=== PATIENT | female | born 1960 | race Caucasian/White ===

== ENCOUNTER 2017-02-17 08:02 | Emergency (ER) | payer OTHER ==
[~2017-02-17] VITALS: Ht 167.6 cm; Wt 75.0 kg
[~2017-02-17 08:02] MED LIST: ATEN-102 PO; ATOR10TA PO; BISA10R PR; CLON.1 PO; CLON.2 PO; DILA2TAB4 PO; IMOD2TAB PO; LACT20SO4 PO; LEXA10TA PO; LISI40TA PO; OXYC10TA8 PO; PERC10TA27 PO; PERI8.6T PO; RANI150C PO; REQU3TAB PO; ULTR50TA PO; WALKER STANDARD; XANA1TAB6 PO
[2017-02-17 08:04] VITALS: BP 142/86; PULSE 71; RESP 18; TEMP 98.1; O2SAT 97
--- NOTE | 2017-02-17 08:24 | PD ---
HPI Chief Complaint: Injury Time Seen by Provider: 08:23 Travel History International Travel<30 days: No Contact w/Intl Traveler<30days: No Traveled to known affect area: No History of Present Illness HPI 57-year-old female presents to the emergency Department with complaint of left ankle pain for the past 3 days. Denies injury or strain. Denies paresthesias, loss of sensation to the affected extremity. She says she cannot walk because it is too painful. Reports swelling to the ankle. Denies fever, chills, nausea , vomiting. Has not taken any medications or tried any treatments to alleviate her symptoms. Allergies to amoxicillin and clindamycin. No other modifying factors or associated signs and symptoms. PFSH Past Medical History Autoimmune Disease: No Anxiety: Yes Depression: Yes Cancer: No Cardiovascular Problems: Yes High Cholesterol: Yes Cerebrovascular Accident: Yes Diminished Hearing: No Endocrine: No Gastrointestinal Disorders: Yes Genitourinary: No Hypertension: Yes Immune Disorder: No Musculoskeletal: No Neurologic: Yes Reproductive: No Respiratory: No Menopausal: Yes : 3 Para: 1 Past Surgical History Abdominal Surgery: Yes Other Surgery: Yes (LEFT CAROTID, LEFT LEG) Social History Alcohol Use: No Tobacco Use: Yes (1 PPD) Substance Use: No Allergies-Medications (Allergen,Severity, Reaction): Coded Allergies: Amoxicillin (Verified Allergy, Unknown, 04/23/16) Clindamycin (Unverified Allergy, Unknown, 04/23/16) Reported Meds & Prescriptions Reported Meds & Active Scripts Active Ibuprofen 800 Mg Tab 800 Mg PO Q6HR PRN Dilaudid (Hydromorphone HCl) 2 Mg Tab 2 Mg PO Q6H Oxycodone (Oxycodone HCl) 10 Mg Tab 10 Mg PO Q6H PRN in addn to percocet for breakthrough pain Catapres (Clonidine HCl) 0.1 Mg Tab 0.1 Mg PO Q6H PRN Dulcolax 10 Mg Supp (Bisacodyl) 10 Mg Supp 10 Mg [place] DAILY PRN Walker Standard (Device) Device 1 Unit Reported Percocet 10-325 mg (Oxycodone-Acetaminophen 10-325 mg) 1 Tab 1 Tab PO Q4H Atenolol 50 Mg Tab 50 Mg PO Q8HR Zantac (Ranitidine HCl) 150 Mg Cap 150 Mg PO DAILY Ultram (Tramadol HCl) 50 Mg Tab 50 Mg PO Q8HR PRN Requip 3 mg (ROPINIROLE HYDROCHLORIDE 3 mg) 3 Mg Tab 3 Mg PO TID Loperamide Hcl (Loperamide HCl) 2 Mg Tab 2 Mg PO PRN GIVE AFTER EACH LOOSE STOOL: MAXIUMUM OF 8 CAPS/TABS PER DAY Lactulose 30 Ml Syrp 30 Ml PO DAILY PRN Xanax 1 mg (Alprazolam) Alprazolam 1 mg Tab 2 Mg PO Q6 Reyna-Colace 8.6-50 mg (Sennosides-Docusate Sodium) 1 Tab Tab 2 Tab PO DAILY PRN Prinivil 40 mg (Lisinopril) 40 Mg Tab 40 Mg PO DAILY Lexapro (Escitalopram Oxalate) 10 Mg Tab 10 Mg PO DAILY Catapres 0.2 mg (Clonidine HCl) 0.2 Mg Tab 1 Tab PO TID PRN Atorvastatin 10 mg (Atorvastatin Calcium) 10 Mg Tab 10 Mg PO DAILY Review of Systems Except as stated in HPI: all other systems reviewed are Neg Physical Exam Narrative GENERAL: Well-nourished, well-developed female patient, in no acute distress SKIN: Warm and dry. HEAD: Atraumatic. Normocephalic. EYES: Pupils equal and round. No scleral icterus. No injection or drainage. ENT: Mucosa pink and moist. Airway patent. NECK: Trachea midline. CARDIOVASCULAR: Regular rate. RESPIRATORY: No accessory muscle use. GASTROINTESTINAL: Flat. MUSCULOSKELETAL: Left ankle with tenderness on palpation; with nonpitting edema ; without erythema, ecchymosis; limited range of motion. Left lower extremity is supple and non-tense with 2+ pedal pulse and sensory intact. Right ankle appears mildly edematous and with similar appearance as the left; without tenderness on palpation and nonpitting edema. No signs of septic joint. No obvious deformities. No clubbing. No cyanosis. No edema. NEUROLOGICAL: Awake and alert. Oriented 3. No obvious cranial nerve deficits. Motor grossly within normal limits. Normal speech. PSYCHIATRIC: Appropriate mood and affect; insight and judgment normal. Data Data Last Documented VS Vital Signs Date Time Temp Pulse Resp B/P Pulse Ox O2 Delivery O2 Flow Rate FiO2 02/17/17 08:04 98.1 71 18 142/86 97 Room Air Orders Ankle, Complete ([id number]) (02/17/17 08:22) Crutches (02/17/17 09:29) Splint Or Brace Apply/Monitor (02/17/17 09:29) Brace Ankle Stirrup (02/17/17 ) [facility] Medical Decision Making Medical Screen Exam Complete: Yes Emergency Medical Condition: Yes Medical Record Reviewed: Yes Differential Diagnosis Ankle sprain, fracture, arthritis, nonspecific ankle pain Narrative Course 57-year-old female with left ankle pain and swelling. Denies injury. Left lower extremity supple and nontender to 2+ pedal pulses and sensory intact. There are no signs of septic joint. The right ankle appears similar to left ankle appearance. Left ankle x-ray ordered. Ibuprofen administered in the ER. 1015: Left ankle x-ray with no acute findings. Crutches and ankle stirrup splint provider for support. Ibuprofen prescribed for home. Patient verbalizes understanding and agreement with treatment plan. Patient is medically cleared and stable for discharge. Discussed reasons to return to the emergency department. Instructed patient to follow up with primary care provider. Patient agrees with treatment plan. The patients vital signs are stable and the patient is stable for outpatient follow-up and treatment. Patient discharged home, stable and in no acute distress. Diagnosis Primary Impression: Left ankle pain Qualified Code: M25.572 - Left ankle pain, unspecified chronicity Referrals: Primary Care Physician Patient Instructions: Crutch Instructions (ED), General Instructions Additional Instructions: Tylenol or ibuprofen as directed and as needed for pain and inflammation Rest, ice, compress, and elevate extremity to decrease pain and inflammation Ankle Brace for support Crutches for support Avoid aggravating activity; increase activity as tolerated Follow-up with primary care provider Return to the emergency department immediately with worsening symptoms Med/Other Pt SpecificInfo: Prescription(s) given Scripts Ibuprofen 800 Mg [id number] Mg PO Q6HR PRN (PAIN) #30 TAB Ref 0 Prov:Yenni Hancock 02/17/17 Disposition: 01 DISCHARGE HOME Condition: Stable Yenni Hancock Feb 17, 2017 08:24
--- NOTE | 2017-02-17 09:10 | RADRPT ---
EXAM DATE/TIME: 02/17/2017 08:40 [facility] COMPARISON: No previous studies available for comparison. INDICATIONS : Left ankle pain and swelling. No known injury. MEDICAL HISTORY : Cardiovascular disease. Hypertension SURGICAL HISTORY : None. Left hip arthroplasty. Right hip fracture repair. ENCOUNTER: Initial ACUITY: 3 days PAIN SCORE: 5/10 LOCATION: Left lateral ankle FINDINGS: Three view exam was performed of the left ankle. The bony structures are in normal alignment. No ev idence of fracture, dislocation, or soft tissue swelling. The ankle mortise is intact. No radiopaqu e foreign bodies are seen. Bony mineralization is normal. CONCLUSION: Unremarkable examination of the left ankle. Frankie Steinberg MD on February 17, 2017 at 9:08 Board Certified Radiologist. This report was verified electronically.
[2017-02-17] MEDS ORDERED: IBUP800T23 PO (09:46)
== END 2017-02-17 09:54 | disposition home or self-care (01) ==
LOC: NEPB 08:02
DX: M25.572 Pain in left ankle and joints of left foot (principal); I10 Essential (primary) hypertension; F17.210 Nicotine dependence, cigarettes, uncomplicated
CPT/HCPCS: 73610; 99283; E0113; L1906

== ENCOUNTER 2017-02-19 10:23 | Emergency (ER) | payer OTHER ==
[~2017-02-19] VITALS: Ht 177.8 cm; Wt 84.0 kg
[~2017-02-19 10:23] MED LIST changes: +IBUP800T23 PO
[2017-02-19 10:28] VITALS: BP 180/87; PULSE 81; RESP 15; TEMP 98.2; O2SAT 98
--- NOTE | 2017-02-19 10:56 | PD ---
HPI Chief Complaint: Pain: Acute or Chronic Time Seen by Provider: 10:44 Travel History International Travel<30 days: No Contact w/Intl Traveler<30days: No Traveled to known affect area: No History of Present Illness HPI 57-year-old female presents to the emergency department with continued pain to her left ankle and worsening of swelling to her foot and ankle. I saw this patient on February 17 for the same complaint. Denies injury. She returns with worsening of symptoms. She denies paresthesias, loss of sensation to the affected extremity. Denies fever, chills, nausea, vomiting. Says the swelling looks like it's going up her leg. Denies calf pain. Denies history of DVT/PE. Denies anticoagulants. Denies recent surgery, trauma, hospitalization, travel. Denies estrogen use. She has not been using the crutches or ankle splint she was given for support. She says ibuprofen has not helped with her pain and she is requesting something more. She has no other medical complaints. Allergies to amoxicillin and clindamycin. No other modifying factors or associated signs and symptoms. PFSH Past Medical History Autoimmune Disease: No Anxiety: Yes Depression: Yes Cancer: No Cardiovascular Problems: Yes High Cholesterol: Yes Cerebrovascular Accident: Yes Diminished Hearing: No Endocrine: No Gastrointestinal Disorders: Yes Genitourinary: No Hypertension: Yes Immune Disorder: No Musculoskeletal: No Neurologic: Yes Reproductive: No Respiratory: No Menopausal: Yes : 3 Para: 1 Past Surgical History Abdominal Surgery: Yes Other Surgery: Yes (LEFT CAROTID, LEFT LEG) Social History Alcohol Use: No Tobacco Use: Yes (1 PPD) Substance Use: No Allergies-Medications (Allergen,Severity, Reaction): Coded Allergies: Amoxicillin (Verified Allergy, Unknown, 04/23/16) Clindamycin (Unverified Allergy, Unknown, 04/23/16) Reported Meds & Prescriptions Reported Meds & Active Scripts Active Ibuprofen 800 Mg Tab 800 Mg PO Q6HR PRN Reported Gabapentin 100 Mg Cap 100 Mg PO TID Tramadol (Tramadol HCl) 50 Mg Tab 50 Mg PO TID PRN Ropinirole 3 Mg Tab 3 Mg PO TID Lisinopril 40 Mg Tab 40 Mg PO DAILY Hydrocodone-Acetaminophen 5-300 Mg Tab 1 Tab PO Q4H PRN Escitalopram (Escitalopram Oxalate) 10 Mg Tab 10 Mg PO DAILY Flexeril (Cyclobenzaprine HCl) 10 Mg Tab 10 Mg PO TID Clonidine (Clonidine HCl) 0.1 Mg Tab 0.1 Mg PO BID Atorvastatin (Atorvastatin Calcium) 10 Mg Tab 10 Mg PO HS Atenolol 100 Mg Tab 75 Mg PO TID Alprazolam 2 Mg Tab 2 Mg PO Q6H PRN Review of Systems Except as stated in HPI: all other systems reviewed are Neg Physical Exam Narrative GENERAL: Well-nourished, well-developed female patient, in no acute distress; afebrile, nontoxic-appearing SKIN: Warm and dry. HEAD: Atraumatic. Normocephalic. EYES: Pupils equal and round. No scleral icterus. No injection or drainage. ENT: Mucosa pink and moist. Airway patent. NECK: Trachea midline. CARDIOVASCULAR: Regular rate. RESPIRATORY: No accessory muscle use. GASTROINTESTINAL: Rounded. MUSCULOSKELETAL: Left lower extremity supple and non-tense with 2+ pedal pulse and sensory intact without erythema. Left lower leg appears slightly larger than the right lower leg. Left ankle and foot with edema; there is an area of erythema to the medial aspect of the ankle that is warm to touch and may be consistent with cellulitis. The right foot and ankle are also edematous with similar appearance, but less than the left. Left ankle and foot edema have worsened since I saw the patient 2 days ago, and the lower leg appears slightly edematous now too. No reproducible tenderness on palpation to the posterior upper calf. No obvious deformities. No clubbing. No cyanosis. NEUROLOGICAL: Awake and alert. Oriented 3. No obvious cranial nerve deficits. Motor grossly within normal limits. Normal speech. PSYCHIATRIC: Appropriate mood and affect; insight and judgment normal. Data Data Last Documented VS Vital Signs Date Time Temp Pulse Resp B/P Pulse Ox O2 Delivery O2 Flow Rate FiO2 02/19/17 10:28 98.2 81 15 180/87 98 Orders Us Leg Venous Doppler (02/19/17 ) [facility] Medical Decision Making Medical Screen Exam Complete: Yes Emergency Medical Condition: Yes Medical Record Reviewed: Yes Differential Diagnosis Dependent edema, cellulitis, DVT, superficial thrombosis, gout Narrative Course This is a 57-year-old female that I saw 2 days ago on February 17 for the same complaint of left ankle pain and swelling. Denies injury. An x-ray on February 17 of the left ankle was negative for fracture. The left ankle and foot are more edematous and have worsened since I last saw the patient 2 days ago in the lower leg appears slightly edematous now too. There is an area to the medial aspect of the ankle that is erythematous and warm to touch, that may be consistent with a cellulitis. I will obtain a left leg venous Doppler ultrasound to rule out DVT and if that is negative I'll treat the patient for cellulitis. Left leg venous Doppler ultrasound ordered. 1140: Left leg venous Doppler ultrasound concludes an unremarkable examination. I will prescribe antibiotics for possible cellulitis. I will prescribe a course of steroids for possible gout. Keflex, Bactrim, Deltasone prescribed for home. Instructed patient to continue to use crutches and ankle splint as needed for support. Patient verbalizes understanding and agreement with treatment plan. Patient is medically cleared and stable for discharge. Discussed reasons to return to the emergency department. Instructed patient to follow up with primary care provider. Patient agrees with treatment plan. The patients vital signs are stable and the patient is stable for outpatient follow- up and treatment. Patient discharged home, stable and in no acute distress. Diagnosis Primary Impression: Edema of left ankle Additional Impressions: Edema of left foot Left ankle pain Qualified Code: M25.572 - Left ankle pain, unspecified chronicity Referrals: Primary Care Physician Patient Instructions: Cellulitis (ED), General Instructions, Gout (ED) Additional Instructions: Tylenol or ibuprofen as instructed and as needed for pain and inflammation Rest, ice, compress, and elevate extremity to decrease pain and inflammation Justin bandage and ankle Brace for support Crutches for support Avoid aggravating activity; increase activity as tolerated Follow-up with primary care provider Return to the emergency department immediately with worsening symptoms Med/Other Pt SpecificInfo: Prescription(s) given, No Change to Meds, No Meds Exist/No RX given Scripts Prednisone (Deltasone)20 Mg Tab40 Mg PO DAILY 5 Days Ref 0 Prov:Yenni Hancock [employer]PECT[employer]IE 02/19/17 Sulfamethoxazole-Trimethoprim (Bactrim DS)800-160 Mg Tab1 Tab PO BID 10 Days Ref 0 Prov:Yenni Hancock [employer] 02/19/17 Cephalexin (Keflex)500 Mg [id number] Mg PO Q6H 10 Days Ref 0 Prov:Yenni Hancock [employer] 3/24/17 Disposition: 01 DISCHARGE HOME Condition: Stable Rassi,Yenni K [employer] Feb 19, 2017 10:56
[2017-02-19] MEDS ORDERED: ATEN100T PO (11:10)
[2017-02-19] MEDS ORDERED: GABA100C4 PO (11:10)
[2017-02-19] MEDS ORDERED: ATOR10TA15 PO (11:10)
[2017-02-19] MEDS ORDERED: CYCL1TAB29 PO (11:10)
[2017-02-19] MEDS ORDERED: TRAM50TA PO (11:10)
[2017-02-19] MEDS ORDERED: CLON0.1T PO (11:10)
[2017-02-19] MEDS ORDERED: HYDR-4107 PO (11:10)
[2017-02-19] MEDS ORDERED: ALPR2TAB3 PO (11:10)
[2017-02-19] MEDS ORDERED: ESCI10TA PO (11:10)
[2017-02-19] MEDS ORDERED: LISI40TA PO (11:10)
[2017-02-19] MEDS ORDERED: ROPI3TAB PO (11:10)
--- NOTE | 2017-02-19 11:31 | RADRPT ---
EXAM DATE/TIME: 02/19/2017 11:00 [facility] COMPARISON: No previous studies available for comparison. INDICATIONS : Left leg pain and swelling. MEDICAL HISTORY : Hypercholesterolemia. Hypertension. Stroke. SURGICAL HISTORY : Carotid endarterectomy. Left leg surgery. ENCOUNTER: Initial ACUITY: 1 day PAIN SCORE: 4/10 LOCATION: Left leg. TECHNIQUE: Venous ultrasound of the leg was performed from the inguinal ligament to the proximal calf. Real-sharon e, color Doppler and spectral tracing, compression and augmentation techniques were used. FINDINGS: There is normal compressibility of the deep venous system from the inguinal region to the proximal ca lf. No echogenic clot is seen in the lumen of the common femoral, femoral, popliteal, and posterior tibial veins. There is a normal response of the venous system to proximal and distal augmentation an d respiration. CONCLUSION: Normal examination. Frankie Steinberg MD on February 19, 2017 at 11:26 Board Certified Radiologist. This report was verified electronically.
[2017-02-19] MEDS ORDERED: CEPH-460 PO (11:44)
[2017-02-19] MEDS ORDERED: PRED-503 PO (11:44)
[2017-02-19] MEDS ORDERED: BACT800T5 PO (11:44)
== END 2017-02-19 13:15 | disposition home or self-care (01) ==
LOC: NETRI 10:23 → NEDAMB 13:15
DX: R60.0 Localized edema (principal); M25.572 Pain in left ankle and joints of left foot; I10 Essential (primary) hypertension; E78.00 Pure hypercholesterolemia, unspecified; F17.200 Nicotine dependence, unspecified, uncomplicated; Z86.59 Personal history of other mental and behavioral disorders; Z86.79 Personal history of other diseases of the circulatory system; Z87.19 Personal history of other diseases of the digestive system; Z86.69 Personal history of other diseases of the nervous system and sense organs
CPT/HCPCS: 93971

== ENCOUNTER 2017-02-26 13:10 | Inpatient (IN) | payer OTHER ==
[~2017-02-26] VITALS: Ht 175.3 cm; Wt 84.0 kg
[~2017-02-26 13:10] MED LIST changes: +ALPR2TAB3 PO; -ATEN-102 PO; +ATEN100T PO; -ATOR10TA PO; +ATOR10TA15 PO; +BACT800T5 PO; -BISA10R PR; +CEPH-460 PO; -CLON.1 PO; -CLON.2 PO; +CLON0.1T PO; +CYCL1TAB29 PO; -DILA2TAB4 PO; +ESCI10TA PO; +GABA100C4 PO; +HYDR-4107 PO; -IMOD2TAB PO; -LACT20SO4 PO; -LEXA10TA PO; -OXYC10TA8 PO; -PERC10TA27 PO; -PERI8.6T PO; +PRED-503 PO; -RANI150C PO; -REQU3TAB PO; +ROPI3TAB PO; +TRAM50TA PO; -ULTR50TA PO; -WALKER STANDARD; -XANA1TAB6 PO
[2017-02-26 13:12] VITALS: BP 110/67; PULSE 68; RESP 20; TEMP 97.9; O2SAT 91
--- NOTE | 2017-02-26 15:58 | RADRPT ---
EXAM DATE/TIME: 02/26/2017 15:49 [facility] COMPARISON: No previous studies available for comparison. INDICATIONS : Inflammation to dorsal aspect of left foot. Complains of pain in foot. Patient fell 3 days ago. MEDICAL HISTORY : None. SURGICAL HISTORY : None. ENCOUNTER: Initial ACUITY: 3 days PAIN SCORE: 8/10 LOCATION: Left Foot FINDINGS: Three view examination of the left foot demonstrates significant soft tissue swelling along the dorsu m of the foot. There are fractures through the distal tibial and fibular metaphyses. Questionable herminia ency through the lateral base of the distal phalanx of the first ray. Intrinsic bones of the foot are otherwise intact CONCLUSION: 1. Fractures through the distal tibial and fibular metaphyses. 2. Possible linear, nondisplaced fracture through the lateral base of the distal phalanx of the first ray Gamal Artis MD on February 26, 2017 at 15:50 Board Certified Radiologist. This report was verified electronically.
--- NOTE | 2017-02-26 16:24 | PD ---
HPI Chief Complaint: Pain: Acute or Chronic Time Seen by Provider: 16:00 Travel History International Travel<30 days: No Contact w/Intl Traveler<30days: No Traveled to known affect area: No History of Present Illness HPI Patient is a 57 year old female presented to the emergency room evaluation of left foot swelling and pain. Patient states it so sore she cannot walk. She saw her primary care provider on Wednesday who prescribed antibiotics. Patient has been taking Bactrim, Keflex and Lasix. Patient states the pain continues to get worse despite this treatment. Patient states that she fell a few days ago. She denies any other complaints at this time. Patient has a history of CVA, she currently resides at [facility]. [facility] Past Medical History Autoimmune Disease: No Anxiety: Yes Depression: Yes Cancer: No Cardiovascular Problems: Yes High Cholesterol: Yes Cerebrovascular Accident: Yes Diminished Hearing: No Endocrine: No Gastrointestinal Disorders: Yes Genitourinary: No Hypertension: Yes Immune Disorder: No Musculoskeletal: No Neurologic: Yes Reproductive: No Respiratory: No ?: Not Menopausal: Yes : 3 Para: 1 Past Surgical History Abdominal Surgery: Yes Other Surgery: Yes (LEFT CAROTID, LEFT LEG) Social History Alcohol Use: No Tobacco Use: Yes (1 PPD) Substance Use: No Allergies-Medications (Allergen,Severity, Reaction): Coded Allergies: Amoxicillin (Verified Allergy, Unknown, 04/23/16) Clindamycin (Unverified Allergy, Unknown, 04/23/16) Reported Meds & Prescriptions Reported Meds & Active Scripts Active Deltasone (Prednisone) 20 Mg Tab 40 Mg PO DAILY 5 Days Bactrim DS (Sulfamethoxazole-Trimethoprim) 800-160 Mg Tab 1 Tab PO BID 10 Days Keflex (Cephalexin) 500 Mg Cap 500 Mg PO Q6H 10 Days Ibuprofen 800 Mg Tab 800 Mg PO Q6HR PRN Reported Gabapentin 100 Mg Cap 100 Mg PO TID Tramadol (Tramadol HCl) 50 Mg Tab 50 Mg PO TID PRN Ropinirole 3 Mg Tab 3 Mg PO TID Lisinopril 40 Mg Tab 40 Mg PO DAILY Hydrocodone-Acetaminophen 5-300 Mg Tab 1 Tab PO Q4H PRN Escitalopram (Escitalopram Oxalate) 10 Mg Tab 10 Mg PO DAILY Flexeril (Cyclobenzaprine HCl) 10 Mg Tab 10 Mg PO TID Clonidine (Clonidine HCl) 0.1 Mg Tab 0.1 Mg PO BID Atorvastatin (Atorvastatin Calcium) 10 Mg Tab 10 Mg PO HS Atenolol 100 Mg Tab 75 Mg PO TID Alprazolam 2 Mg Tab 2 Mg PO Q6H PRN Review of Systems Except as stated in HPI: all other systems reviewed are Neg Musculoskeletal: Positive: Myalgias, Arthralgias, Limited ROM, Edema, Pain Skin: Positive Change in Pigmentation Physical Exam Narrative GENERAL: Well-nourished, well-developed patient. SKIN: Focused skin assessment warm/dry. Moderate erythema noted to the left ankle and foot on the dorsal aspect. HEAD: Normocephalic. EYES: No scleral icterus. No injection or drainage. NECK: Supple, trachea midline. No JVD or lymphadenopathy. CARDIOVASCULAR: Regular rate and rhythm without murmurs, gallops, or rubs. RESPIRATORY: Breath sounds equal bilaterally. No accessory muscle use. GASTROINTESTINAL: Abdomen soft, non-tender, nondistended. MUSCULOSKELETAL: No cyanosis, 2+ pitting edema to the left foot on the dorsal aspect. Edema noted to the left ankle diffusely. Tender to palpation. Decreased range of motion. Positive pedal pulses, brisk less than 3 second capillary refill. BACK: Nontender without obvious deformity. No CVA tenderness. Data Data Last Documented VS Vital Signs Date Time Temp Pulse Resp B/P Pulse Ox O2 Delivery O2 Flow Rate FiO2 02/26/17 13:12 97.9 68 20 110/67 91 Room Air Orders Foot, Complete ([id number]) (02/26/17 ) Ankle, Complete ([id number]) (02/26/17 ) Complete Blood Count With Diff (02/26/17 17:12) Comprehensive Metabolic Panel (02/26/17 17:12) Act Partial Throm Time (Ptt) (02/26/17 17:12) Prothrombin Time / Inr (Pt) (02/26/17 17:12) Iv Access Insert/Monitor (02/26/17 17:12) Ct Ankle W/O Contrast (02/26/17 ) Diet Npo (02/27/17 Breakfast) Diet Heart Healthy (02/26/17 Dinner) Chest, Pa & Lat (02/26/17 ) Electrocardiogram (02/26/17 ) Vancomycin Inj (Vancomycin Inj) (02/26/17 17:30) Cefazolin Inj (Ancef Inj) (02/26/17 17:30) Admit Order (Ed Use Only) (02/26/17 17:31) Consult Orthopedic (02/26/17 ) [facility] Medical Decision Making Medical Screen Exam Complete: Yes Emergency Medical Condition: Yes Medical Record Reviewed: Yes Interpretation(s) Last Impressions Foot X-Ray 02/26/17 0000 Signed Impressions: Service Date/Time: Sunday, February 26, 2017 15:49 - CONCLUSION: 1. Fractures through the distal tibial and fibular metaphyses. 2. Possible linear, nondisplaced fracture through the lateral base of the distal phalanx of the first ray Gamal Artis MD Vital Signs Date Time Temp Pulse Resp B/P Pulse Ox O2 Delivery O2 Flow Rate FiO2 02/26/17 13:12 97.9 68 20 110/67 91 Room Air Differential Diagnosis Cellulitis versus fracture versus strain versus sprain versus other Narrative Course Patient is a 57 year old female presenting to emergency for evaluation of left foot swelling and ankle pain. Patient has been unable to ambulate since a fall several days ago. Her primary doctor has been treating her with antibiotics for a suspected cellulitis. Patient's vital signs are stable, imaging ordered and pending. X-ray of the left foot shows a fracture of the distal tibial and fibular metaphysis. It also shows a possible linear nondisplaced fracture at the lateral base of the distal phalanx on the first toe. Paged orthopedic surgeon for recommendations. Dedicated ankle x-rays ordered and pending. Dr. Ulloa returned the page, after ankle at the x-rays were reviewed by him he recommended patient be nothing by mouth after midnight, CT scan of the ankle, cold machine on the left ankle and to be treated for possible cellulitis as well. Patient will be admitted to medicine. She'll be kept nothing by mouth after midnight. Hospitalist page. Orders placed for labs, chest x-ray, EKG for preop testing. Dr. Lam accepted admission patient's been tolerating Keflex that was prescribed by her primary. She will be given Ancef 1 g 1 dose now. Patient transferred to alpha pod from fast track. Updated Dr. Cr who is the provider in that pod at this time. Additionally patient was informed of results of testing. She is agreeable to plan of care. Diagnosis Primary Impression: Fracture of distal end of left tibia Qualified Code: S82.302A - Closed fracture of distal end of left tibia, unspecified fracture morphology, initial encounter Additional Impressions: Fracture of distal fibula Qualified Code: S82.832A - Closed fracture of distal end of left fibula, unspecified fracture morphology, initial encounter Cellulitis Qualified Code: L03.116 - Cellulitis of left lower extremity Admitting Information Admitting Physician Requests: Admit Condition: Stable Mamta Ibanez Feb 26, 2017 16:24
--- NOTE | 2017-02-26 17:16 | RADRPT ---
EXAM DATE/TIME: 02/26/2017 15:49 [facility] COMPARISON: ANKLE LEFT COMPLETE ([id number]), February 17, 2017, 8:40. INDICATIONS : Evaluate for fracture. Patient fell three days ago and complains of left ankle pain . MEDICAL HISTORY : None. SURGICAL HISTORY : None. ENCOUNTER: Initial ACUITY: 3 days PAIN SCORE: 8/10 LOCATION: Left ankle FINDINGS/CONCLUSION: There is fracture of the distal tibia and fibula horizontal to the tibial pl afond angulation. This was not present on the previous study of 02/17/17. Yoni Ferreira MD FACR on February 26, 2017 at 17:12 Board Certified Radiologist. This report was verified electronically.
[2017-02-26] MEDS ORDERED: VANCOMYCIN INJ 1,000 MG in SODIUM CHLOR 0.9% 250 ML INJ 250 ML IV ONE (17:30)
--- NOTE | 2017-02-26 18:01 | RADRPT ---
EXAM DATE/TIME: 02/26/2017 17:39 [facility] COMPARISON: No previous studies available for comparison. INDICATIONS : Left ankle pain and swelling. RADIATION DOSE: 7.29 CTDIvol (mGy) MEDICAL HISTORY : None SURGICAL HISTORY : None. ENCOUNTER: Initial ACUITY: 1 day PAIN SCALE: 9/10 LOCATION: Left ankle TECHNIQUE: Volumetric scanning of the ankle was performed. Using automated exposure control and adjustment of the mA and/or kV according to patient size, radiation dose was kept as low as reasonabl y achievable to obtain optimal diagnostic quality images. FINDINGS: There is generalized soft-tissue swelling about the ankle. There is a small joint effu peyton present. This is associated with a fracture of the distal tibia and fibula. The talus and calcaneus are intact. CONCLUSION: Fracture of the distal tibia and fibula as described above. Yoni Ferreira MD FACR on February 26, 2017 at 17:56 Board Certified Radiologist. This report was verified electronically.
[2017-02-26 18:15] VITALS: BP 145/78; PULSE 55; RESP 18; O2SAT 100
--- NOTE | 2017-02-26 18:24 | RADRPT ---
EXAM DATE/TIME: 02/26/2017 17:51 [facility] COMPARISON: SHOULDER RIGHT LTD ([id number]), April 03, 2016, 13:13. INDICATIONS : Evaluate for pneumonia, pneumothorax and communicable disease Pre op for ankle surgery. MEDICAL HISTORY : Fractures through the distal tibial and fibular metaphyses. SURGICAL HISTORY : None. ENCOUNTER: Initial ACUITY: 1 day PAIN SCORE: 0/10 LOCATION: Bilateral chest FINDINGS: The heart is top normal in size. The pulmonary vascular pattern is normal. The lungs are clear. Deg enerative changes are noted involving the shoulders bilaterally (right worse than left). Scoliosis a nd degenerative changes of the thoracolumbar spine are noted. Multiple mild compression deformities are noted throughout the thoracic and upper lumbar spine. CONCLUSION: 1. No acute cardiopulmonary disease. 2. Degenerative changes, scoliosis and multilevel compression deformities involving the thoracic and upper lumbar spine. 3. Degenerative changes involving the shoulders bilaterally (right worse than left). Donta Raya MD on February 26, 2017 at 18:18 Board Certified Radiologist. This report was verified electronically.
[2017-02-26 18:34] LABS: AUTOMATED NEUTROPHIL # 7.2 TH/MM3 (1.8-7.7); BASOPHIL % 0.3 % (0.0-2.0); EOSINOPHIL # 0.2 TH/MM3 (0-0.4); EOSINOPHIL % 1.9 % (0.0-4.0); HEMATOCRIT 46.4 % (35.0-46.0); HEMO FLAGS DIFF FINAL; LYMPH % 23.1 % (9.0-44.0); LYMPHOCYTE # 2.4 TH/MM3 (1.0-4.8); MEAN CELL VOLUME 88.2 FL (80.0-100.0); MEAN CORPUSCULAR HEMOGLOBIN 29.9 PG (27.0-34.0); MEAN CORPUSCULAR HGB CONC 33.9 % (32.0-36.0); MONO % 4.4 % (0.0-8.0); NEUT % 70.3 % (16.0-70.0); PLATELET COUNT 281 TH/MM3 (150-450); RED BLOOD COUNT 5.26 MIL/MM3 (4.00-5.30); RED CELL DISTRIBUTION WIDTH 12.4 % (11.6-17.2); WHITE BLOOD COUNT 10.2 TH/MM3 (4.0-11.0)
[2017-02-26] MEDS: SODIUM CHLOR 0.9% 1000 ML INJ 1,000 ML IV SCH (18:38)
[2017-02-26 18:45] VITALS: BP 146/88; PULSE 54; RESP 23; O2SAT 98
[2017-02-26 18:46] LABS: APTT (PATIENT) 29.2 SEC (24.3-30.1); PROTHROMBIN TIME - PATIENT 10.6 SEC (9.8-11.6)
[2017-02-26 19:20] LABS: ALKALINE PHOSPHATASE 120 U/L (45-117); ALT (GPT) 14 U/L (10-53); ANION GAP 9 MEQ/L (5-15); AST (GOT) 13 U/L (15-37); BICARBONATE 25.1 MEQ/L (21.0-32.0); BLOOD UREA NITROGEN 22 MG/DL (7-18); CHLORIDE 90 MEQ/L (98-107); GLOMERULAR FILTRATION RATE 39 ML/MIN (>89); POTASSIUM 4.2 MEQ/L (3.5-5.1); TOTAL BILIRUBIN ADULT 0.4 MG/DL (0.2-1.0)
[2017-02-26 19:30] VITALS: BP 155/96; PULSE 56; RESP 19; O2SAT 96
[2017-02-26 19:30] LABS: SODIUM (NA) 124 MEQ/L (136-145)
[2017-02-26 21:32] VITALS: PULSE 55
[2017-02-26] MEDS ORDERED: MORPHINE SULFATE 4 MG/ML INJ IV PRN (22:45)
[2017-02-26] MEDS ORDERED: ACETAMINOPHEN 325 MG TAB PO PRN (22:45)
[2017-02-26] MEDS: ALPRAZolam 1 MG TAB PO PRN (23:31)
[2017-02-26] MEDS: ATORVASTATIN 10 MG TAB PO SCH (23:32)
[2017-02-26] MEDS: ACETAMINOPHEN/HYDROcodone 325 MG/5 MG TAB PO PRN (23:32)
[2017-02-27] VITALS (9 sets, daily range): BP systolic 107–163; BP diastolic 68–92; PULSE 53–94; RESP 17–18; TEMP 95.7–97.5; O2SAT 93–100
[2017-02-27] MEDS ORDERED: ceFAZolin 2 GM PREMIX 50 ML IV SCH
[2017-02-27] MEDS ORDERED: CEPHALEXIN MONOHYDRATE 500 MG CAP PO ONE (00:45)
[2017-02-27] MEDS ORDERED: INSULIN HUMAN REGULAR 1,000 UNITS/10 ML VIAL SQ PRN (01:15)
[2017-02-27] MEDS ORDERED: CHLORHEXIDINE GLUCONATE 2 % 1 PACK (2 CLOTHS) TOPICAL PRN (01:15)
[2017-02-27] MEDS ORDERED: SODIUM CHLORID 0.9% 500 ML IV PRN (01:15)
[2017-02-27] MEDS: LACTATED RINGER'S 1000 ML INJ 1,000 ML IV SCH ×2 (01:15→22:06)
[2017-02-27] MEDS ORDERED: POVIDONE IODINE 5% (ANTISEPSIS KIT) 4 APPLICATIONS EACH NARE PRN (01:15)
[2017-02-27] MEDS: ACETAMINOPHEN/HYDROcodone 325 MG/5 MG TAB PO PRN ×4 (05:15→23:11)
[2017-02-27] MEDS: CYCLOBENZAPRINE HCL 10 MG TAB PO SCH ×3 (08:39→16:45)
[2017-02-27] MEDS: ATENOLOL 100 MG TAB PO SCH ×3 (08:40→16:44)
[2017-02-27] MEDS: cloNIDine HCL 0.1 MG TAB PO SCH ×2 (08:40→20:52)
[2017-02-27] MEDS: GABAPENTIN 100 MG CAP PO SCH ×3 (08:40→16:44)
[2017-02-27] MEDS ORDERED: GENTAMICIN SULFATE 80 MG/2 ML VIAL ONE (09:22)
[2017-02-27] MEDS ORDERED: ACETAMINOPHEN 1000 MG/100 ML VIAL IV ONE (09:31)
[2017-02-27] MEDS ORDERED: ceFAZolin INJ 1,000 MG VIAL ONE (09:45)
[2017-02-27] MEDS ORDERED: VANCOMYCIN HCL 1000 MG VIAL ONE ×2 (09:45→10:00)
--- NOTE | 2017-02-27 11:17 | PD.OP ---
cc: Jean-Claude Prado MD Operative Report Date of Surgery: Feb 27, 2017 Preoperative Diagnosis: Left distal tibial pilon fracture, left distal fibula fracture. Postoperative Diagnosis: Same Procedure: Left lower extremity open reduction and internal fixation of distal tibial pilon fracture with close reduction of distal fibula fracture Anesthesia: Gen. Surgeon: Jean-Claude Prado Import Clerk(s): REECE Weldon The surgical procedure was assisted by my Advanced Registered Nurse Practitioner. My LATIN DANCER presence was necessary throughout this case for the manipulation and positioning of the surgical extremity. My LATIN DANCER was assisting me throughout the duration of this procedure. The skill set of an Advance Registered Nurse Practitioner was medically necessary to complete this procedure. During the surgical case, the surgical nurse was working at the back table and the Advance Registered Nurse Practitioner was directly assisting me. Operation and Findings: Tourniquet time: 16 minutes at 250 mmHg pressure. Estimated blood loss: 30 cc. The patient was given a dose of Ancef and was found to have no specific reaction from the anesthesiologist. Additionally the patient was given intravenous vancomycin. The patient was brought back to the operative theater. Gen. anesthesia was administered. We removed the splint and inspected the skin. Overall there was mild to moderate swelling with no wounds. I did not appreciate any specific sign of cellulitis. Therefore we decided to move forward with the ORIF. The left lower extremity was prepped and draped in the usual sterile fashion. We made standard medial incision and dissected down to the fracture site after reflecting the periosteum. We decided to raise the tourniquet at this point. The fracture was comminuted and angulated. We anatomically reduced the distal tibia which at the same time then anatomically related to reduced the distal fibula. We applied a Synthes precontoured medial distal tibial plate. We did need to contour the plate further using bending irons to achieve anatomic position. We secured the plate using a nonlocking screw on the metaphysis. We then further secured the plate using multiple locking screws both distal and proximal. There was no intra-articular penetration noted. The fracture remained anatomic on the AP, lateral, and mortise views. We decided to proceed with just a close reduction of the distal fibula since it was now anatomic. We released the tourniquet and irrigated. We closed as much very ostium as possible with 0 Vicryl. We then closed skin with 2-0 Vicryl followed by 3-0 nylon. The leg was dressed and placed in multiple splints. Postoperative plan is nonweightbearing for approximately 8-12 weeks depending on healing. We may be able to start fairly early range of motion depending on patient compliance. Postoperative plan also includes routine antibiotics, and DVT prophylaxis with Lovenox followed by aspirin. Jean-Claude Prado MD Feb 27, 2017 11:17
[2017-02-27] MEDS ORDERED: ASPI325T PO (11:21)
[2017-02-27] MEDS ORDERED: ENOX40P SQ (11:21)
[2017-02-27] MEDS ORDERED: NORC5TAB PO (11:21)
[2017-02-27] MEDS ORDERED: NALOXONE HCL 0.4 MG/ML AMP IV PRN (11:30)
[2017-02-27] MEDS ORDERED: ONDANSETRON HCL 4 MG/2 ML VIAL IVP PRN (11:30)
[2017-02-27] MEDS ORDERED: MAGNESIUM HYDROXIDE SUSP 30 ML CUP PO PRN (11:30)
[2017-02-27] MEDS ORDERED: MISCELLANEOUS NURSING INFORMATION XX PRN (11:30)
[2017-02-27] MEDS ORDERED: MISCELLANEOUS PHARMACY INFORMATION XX ONE (11:30)
[2017-02-27] MEDS ORDERED: Post-op Orders (for Pharmacy) MISC XX ONE (11:30)
[2017-02-27] MEDS ORDERED: fentaNYL CITRATE 250 MCG/5 ML AMP ONE (11:58)
[2017-02-27] MEDS ORDERED: LACTATED RINGER'S 1000 ML INJ 1,000 ML IV ONE (12:00)
[2017-02-27] MEDS ORDERED: PROPOFOL 200 MG/20 ML AMP IV ONE (12:00)
[2017-02-27] MEDS ORDERED: ONDANSETRON HCL 4 MG/2 ML VIAL IV PUSH ONE (12:00)
[2017-02-27] MEDS: DEXT 5%-NACL 0.45% 1000 ML INJ 1,000 ML IV SCH ×2 (12:10→20:53)
[2017-02-27] MEDS ORDERED: *morphine SULFATE 8 MG/ML PERIprocedure ONLY ONE ×3 (12:11→12:25)
--- NOTE | 2017-02-27 12:24 | RADRPT ---
EXAM DATE/TIME: 02/27/2017 10:56 [facility] COMPARISON: ANKLE LEFT COMPLETE ([id number]), February 26, 2017, 15:49. INDICATIONS : Open reduction internal fixation left ankle. MEDICAL HISTORY : None. SURGICAL HISTORY : None. ENCOUNTER: Subsequent ACUITY: 2 days PAIN SCORE: Non-responsive. LOCATION: Left lateral FINDINGS: Plate with screws is seen bridging the fracture of the distal tibia. Alignment is anatomic. CONCLUSION: Anatomic alignment. Yoni Ferreira MD FACR on February 27, 2017 at 12:20 Board Certified Radiologist. This report was verified electronically.
[2017-02-27] MEDS ORDERED: *HYDROmorphone PF 1 MG VIAL PERIprocedural Use ONLY ONE (12:35)
[2017-02-27] MEDS ORDERED: SODIUM CHLORIDE 0.9% FLUSH 10 ML FLUSH IV FLUSH PRN (12:45)
--- NOTE | 2017-02-27 12:46 | MB ---
cc: SAMMIE GUTHRIE DATE OF CONSULTATION: 02/27/2017 REASON FOR CONSULTATION: Left lower extremity fracture. HISTORY The patient is a 57-year-old female who is somewhat of a poor historian and I was able to discuss the case with her but also review the chart and talk to the ER physician last night. The patient has been having some problems with the ankle recently over the last week or so. The patient saw her primary care physician. They put her on some antibiotics specifically Bactrim, Keflex and Lasix because she was having some swelling. She did not notice a big trauma at that time. She did have x-rays performed. The patient ended up having worsening symptoms. She said that she did fall a couple of days ago but she said it was a minor fall and she does have weakness of the left lower extremity due to previous CVA. The patient resides at [facility]. The patient when brought to [facility] yesterday was found to have a distal tibia fracture and also nondisplaced great toe fracture. The emergency room physician contacted me. I reviewed the case. I requested a CT scan which helped better visualize the fracture pattern. Recommended admission to the hospital and they were also supposed to initiate intravenous antibiotics. PAST MEDICAL HISTORY: Positive for anxiety and depression, cardiovascular problems like cholesterol, CVA, gastrointestinal problems, hypertension. PAST SURGICAL HISTORY: Positive for carotid surgery. Left leg surgery. SOCIAL HISTORY: The patient smokes one pack per day and does not drink alcohol. FAMILY HISTORY: Noncontributory. ALLERGIES: AMOXICILLIN CLINDAMYCIN Unsure what the reactions were. MEDICATIONS: See chart. REVIEW OF SYSTEMS: A 12 point review of systems is negative except what is noted in the history of present illness. She does generally get muscle pain. PHYSICAL EXAMINATION: VITAL SIGNS: Temperature 95.7, pulse 58, respiratory rate 17, blood pressure 139/83. GENERAL: The patient is awake, alert, oriented x3. She has normal affect, insight and judgment other than some minor confusion with the history taking. She is in minimal distress due to pain. HEAD: Atraumatic. Extraocular muscles are intact. Neck: Supple. Heart: Regular rate and rhythm. Lungs: Clear excision bilaterally. Oropharynx moist. Abdomen: Soft, nontender, nondistended. Back: No CVA tenderness. Extremities: Examination of the left lower extremities shows that the leg is currently splinted. She has somewhat sluggish capillary refill but no definite signs of distal ischemia. Examination of bilateral upper extremity shows good range of motion of both upper extremities except for the right shoulder which she says has chronic problem from many years ago. The right lower extremity has no tenderness, normal alignment, and she is neurovascularly intact about the upper extremities and the right lower extremity. LABORATORY DATA: Labs are reviewed, shows a white cell count of 10.2, hematocrit 46.4. Coagulation studies shows an INR 1.0, sodium is 124, creatinine is 1.41. IMAGING STUDIES X-rays from shows distal fibular fracture and distal tibia fracture. Reviewed images for the ankle and the foot and then also reviewed the CT itself which again confirms distal tibial pilon fracture which was angulated and displaced. The fibula fracture was also angulated. There are further images from prior evaluation. Ultrasound of the lower extremity from 02/19, which was normal examination without DVT. There are also x-rays from 02/17 of this year of the left ankle, which I reviewed the images and the report, and agree that no definite fractures of the ankle are noted. IMPRESSION: 1. Questionable recent history of cellulitis. 2. Left lower extremity distal pilon fracture with fibular fracture. 3. Nondisplaced fracture of the distal phalanx of the great toe. DECISION-MAKING: The great toe we can treat conservatively. The distal tibial pilon fracture is a complex injury. If left untreated, the patient will likely have deformity about the lower extremity which ultimately could lead to inability to ambulate and significant dysfunction of the lower extremity including chronic pain and loss of range of motion. I would recommend surgical management for this condition. The patient will be evaluated in the operating room to determine if this can be done in a single fashion or a staged fashion due to the possibility of cellulitis. She understands that surgical management could consist of open reduction, internal fixation, with plates and screws versus closed reduction and external fixation with management of the soft tissue and return back to the operating room. She understands the risks of surgery include but not limited to injury to nerves, vessels, bleeding, infection, failure of hardware, need for reoperation, continued pain, loss range of motion associated joints, DVT, pulmonary embolus, pneumonia and . This patient also has chronic history of smoking which significantly reduces success for bony healing over time. All questions have been answered. MD MARY Husain /11:27 AM /12:29 PM
[2017-02-27] MEDS: ALPRAZolam 1 MG TAB PO PRN ×2 (13:04→19:27)
[2017-02-27] MEDS: SODIUM CHLOR 0.9% 1000 ML INJ 1,000 ML IV SCH (13:07)
[2017-02-27] MEDS: MORPHINE SULFATE 4 MG/ML INJ IV PUSH PRN ×3 (15:22→20:53)
--- NOTE | 2017-02-27 18:10 | HHI.PR ---
Subjective Subjective Remarks pt. c/o of increasing pain speech slightly dysarthric, hx of cva has been given IV morphine, Xanax, Dilaudid, Fentanyl, [place] Flexeril no fever no sob anxious difficult to obtain ROS Review of Systems Constitutional Constitutional Remarks difficult to obtain ROS, c/o left ankle pain Vitals/Results Intake & Output 02/26/17 02/26/17 02/27/17 15:00 23:00 07:00 Intake Total 192 ml Output Total 2 ml Balance 192 ml -2 ml Intake Oral 30 ml IV Total 162 ml Output Urine Total 2 ml # Voids 0 # Bowel Movements 0 1 Vital Signs Vital Signs Date Time Temp Pulse Resp B/P Pulse Ox O2 Delivery O2 Flow Rate FiO2 02/27/17 13:34 98 Nasal Cannula 2.00 02/27/17 13:26 Nasal Cannula 2.00 02/27/17 13:01 96.4 62 18 163/92 100 02/27/17 12:45 97.6 61 15 149/87 97 Nasal Cannula 3 02/27/17 12:30 59 15 116/73 97 Nasal Cannula 3 02/27/17 12:15 58 15 130/80 95 Nasal Cannula 3 02/27/17 12:00 61 15 132/73 95 Nasal Cannula 3 02/27/17 11:49 Nasal Cannula 3 02/27/17 11:48 97.6 76 15 117/76 98 02/27/17 10:45 96 21 02/27/17 09:00 95.7 58 17 139/83 100 02/27/17 04:35 97.2 53 17 107/68 94 02/27/17 00:19 96.8 55 17 127/73 95 02/26/17 21:32 55 02/26/17 19:30 56 19 155/96 96 Room Air 02/26/17 18:45 54 23 146/88 98 Room Air 02/26/17 18:15 55 18 145/78 100 Room Air CBC/BMP: 02/26/17 1815 02/26/171814 Lab Results Laboratory Tests Test 02/26/17 18:15 White Blood Count 10.2 TH/MM3 Red Blood Count 5.26 MIL/MM3 Hemoglobin 15.7 GM/DL Hematocrit 46.4 % Mean Corpuscular Volume 88.2 FL Mean Corpuscular Hemoglobin 29.9 PG Mean Corpuscular Hemoglobin 33.9 % Concent Red Cell Distribution Width 12.4 % Platelet Count 281 TH/MM3 Mean Platelet Volume 7.9 FL Neutrophils (%) (Auto) 70.3 % Lymphocytes (%) (Auto) 23.1 % Monocytes (%) (Auto) 4.4 % Eosinophils (%) (Auto) 1.9 % Basophils (%) (Auto) 0.3 % Neutrophils # (Auto) 7.2 TH/MM3 Lymphocytes # (Auto) 2.4 TH/MM3 Monocytes # (Auto) 0.4 TH/MM3 Eosinophils # (Auto) 0.2 TH/MM3 Basophils # (Auto) 0.0 TH/MM3 CBC Comment DIFF FINAL Differential Comment Prothrombin Time 10.6 SEC Prothromb Time International 1.0 RATIO Ratio Activated Partial 29.2 SEC Thromboplast Time Sodium Level 124 MEQ/L Potassium Level 4.2 MEQ/L Chloride Level 90 MEQ/L Carbon Dioxide Level 25.1 MEQ/L Anion Gap 9 MEQ/L Blood Urea Nitrogen 22 MG/DL Creatinine 1.41 MG/DL Estimat Glomerular Filtration 39 ML/MIN Rate Random Glucose 73 MG/DL Calcium Level 8.7 MG/DL Total Bilirubin 0.4 MG/DL Aspartate Amino Transf 13 U/L (AST/SGOT) Alanine Aminotransferase 14 U/L (ALT/SGPT) Alkaline Phosphatase 120 U/L Total Protein 7.7 GM/DL Albumin 4.3 GM/DL Physical Exam General General Appearance: Well Nourished, Anxious Eyes Eye Exam: Pupils Equal, Pupils Reactive Ears & Nose Ears & Nose Exam: Nasal Mucosa [place] Throat Throat Exam: Oral Mucosa [place] & Moist Neck Neck Exam: Neck Supple, Trachea Midline Pulmonary Resp Exam: Breath Sounds Equal Cardiology CV Exam: Regular Gastrointestinal/Abdomen GI Exam: Soft, Non-Tender, Bowel Sounds Present, Non-Distended Musculoskeletal MS Remarks left leg with dressing, splint intact Extremeties Extremities Exam: Pedal Pulses Palpable, Trace Edema Neurologic Neuro Exam: Alert, Awake, Speech Clear, Chief Informatics Officer Equal VTE Prophylaxis VTE Prophylaxis Meds: Lovenox Assessment/Plan Problem List: (1) Fracture of distal end of left tibia (2) Edema of left foot (3) Edema of left ankle (4) Fracture of distal fibula (5) History of CVA (cerebrovascular accident) (6) Hyponatremia (7) Depression (8) HTN (hypertension) (9) Acute renal injury Assessment/Plan 67-year-old female who came to the emergency room complaining of left foot swelling and pain, questionable history of recent cellulitis. Denies any actual injury. Imaging studies completed, was noted with fracture of the distal tib and fib. Also positive for linear nondisplaced fracture to the lateral base of the distal phalanx of the first ray. Was evaluated by orthopedic surgeon S/P Left lower extremity open reduction and internal fixation of distal tibial pilon fracture with close reduction of distal fibula fracture 02/27 -Appreciate orthopedic input Continue with postoperative orthopedic care -Questionable history recent cellulitis, continue with Ancef postoperatively -Pain management -Lovenox for DVT prophylaxis -Physical therapy per orthopedic recommendations Hyponatremia, etiology unclear Repeat BMP pending Acute renal injury, possibly secondary to dehydration Continue with IV fluids BMP in the morning Avoid nephrotoxic agent History of CVA -Continue home medication Hypertension, stable -Continue home medical Lipidemia, stable Continue with home medication Anxiety and depression Continue with home medication Laboratory workup pending Tolerated procedure well, monitor closely. Case management consulted for DC planning. D/W RN D/W Dr. Salazar D/W pt. This patient was seen by myself and Dr. Salazar, this note is written his behalf Problem Qualifiers (1) Fracture of distal end of left tibia: Qualified Code: S82.302A - Closed fracture of distal end of left tibia, unspecified fracture morphology, initial encounter (2) Fracture of distal fibula: Qualified Code: S82.832A - Closed fracture of distal end of left fibula, unspecified fracture morphology, initial encounter (3) Depression: Qualified Code: F32.9 - Depression, unspecified depression type (4) HTN (hypertension): Qualified Code: I10 - Essential hypertension Mariaa Weeks [facility] Feb 27, 2017 18:09
[2017-02-27] MEDS: ATORVASTATIN 10 MG TAB PO SCH (20:52)
[2017-02-27] MEDS: SODIUM CHLORIDE 0.9% FLUSH 10 ML FLUSH IV FLUSH SCH (20:53)
[2017-02-27] MEDS: DOCUSATE SODIUM 50 MG/SENNA 8.6 MG TAB PO SCH (20:53)
[2017-02-27 21:08] LABS: HEMATOCRIT 39.2 % (35.0-46.0); MEAN CELL VOLUME 87.1 FL (80.0-100.0); MEAN CORPUSCULAR HEMOGLOBIN 30.2 PG (27.0-34.0); MEAN CORPUSCULAR HGB CONC 34.7 % (32.0-36.0); PLATELET COUNT 272 TH/MM3 (150-450); RED CELL DISTRIBUTION WIDTH 13.1 % (11.6-17.2); REVIEW FLAG FINAL; WHITE BLOOD COUNT 7.7 TH/MM3 (4.0-11.0)
[2017-02-27 22:17] LABS: BICARBONATE 28.9 MEQ/L (21.0-32.0); POTASSIUM 5.3 MEQ/L (3.5-5.1)
[2017-02-28] VITALS (9 sets, daily range): BP systolic 110–134; BP diastolic 58–80; PULSE 60–96; RESP 16–18; TEMP 96.8–98.6; O2SAT 94–99
[2017-02-28] MEDS: MORPHINE SULFATE 4 MG/ML INJ IV PUSH PRN ×3 (00:43→20:30)
[2017-02-28] MEDS: ALPRAZolam 1 MG TAB PO PRN ×3 (01:56→20:31)
[2017-02-28] MEDS: DEXT 5%-NACL 0.45% 1000 ML INJ 1,000 ML IV SCH ×3 (04:37→15:11)
[2017-02-28 06:21] LABS: HEMATOCRIT 37.6 % (35.0-46.0); MEAN CELL VOLUME 86.8 FL (80.0-100.0); MEAN CORPUSCULAR HGB CONC 34.5 % (32.0-36.0); PLATELET COUNT 261 TH/MM3 (150-450); RED BLOOD COUNT 4.33 MIL/MM3 (4.00-5.30); RED CELL DISTRIBUTION WIDTH 12.7 % (11.6-17.2); REVIEW FLAG FINAL
[2017-02-28 06:55] LABS: BICARBONATE 29.6 MEQ/L (21.0-32.0); POTASSIUM 4.7 MEQ/L (3.5-5.1)
[2017-02-28] MEDS: cloNIDine HCL 0.1 MG TAB PO SCH ×2 (08:30→20:31)
[2017-02-28] MEDS: MULTIVITAMINS/MINERALS THERAPEUTIC TAB PO SCH (08:31)
[2017-02-28] MEDS: ATENOLOL 100 MG TAB PO SCH ×3 (08:31→17:32)
[2017-02-28] MEDS: GABAPENTIN 100 MG CAP PO SCH ×3 (08:31→17:32)
[2017-02-28] MEDS: CYCLOBENZAPRINE HCL 10 MG TAB PO SCH ×3 (08:31→17:32)
[2017-02-28] MEDS: DOCUSATE SODIUM 50 MG/SENNA 8.6 MG TAB PO SCH ×2 (08:31→20:31)
[2017-02-28] MEDS: SODIUM CHLORIDE 0.9% FLUSH 10 ML FLUSH IV FLUSH SCH ×2 (08:31→20:31)
[2017-02-28] MEDS: SODIUM CHLOR 0.9% 1000 ML INJ 1,000 ML IV SCH (08:31)
--- NOTE | 2017-02-28 10:30 | HHI.PR ---
Subjective Subjective Remarks pain better controlled eating okay no n/v no fever wants to go back to [place], informed that she will need SNF refused PT this morning, states it was too early Review of Systems Constitutional Constitutional Remarks 12 point ROS limited Vitals/Results Intake & Output 02/27/17 02/27/17 02/28/17 15:00 23:00 07:00 Intake Total 1240 ml 360 ml 240 ml Output Total 1580 ml 1350 ml 875 ml Balance -340 ml -990 ml -635 ml Intake Oral 240 ml 360 ml 240 ml IV Total 500 ml Other 500 ml Output Urine Total 1550 ml 1350 ml 875 ml Stool Total 0 ml Estimated Blood Loss 30 ml # Voids 1 # Bowel Movements 1 0 Vital Signs Vital Signs Date Time Temp Pulse Resp B/P Pulse Ox O2 Delivery O2 Flow Rate FiO2 02/28/17 09:09 96 21 02/28/17 08:29 Nasal Cannula 1.00 02/28/17 08:28 98.6 65 17 114/66 99 02/28/17 07:25 Nasal Cannula 2.00 02/28/17 04:18 96.8 96 17 110/58 94 02/28/17 04:06 66 02/28/17 00:12 96.9 60 18 111/69 97 02/27/17 20:52 Nasal Cannula 2.00 02/27/17 20:19 97.5 94 18 144/82 99 02/27/17 18:30 93 21 02/27/17 16:00 97.5 64 18 141/81 93 02/27/17 13:34 98 Nasal Cannula 2.00 02/27/17 13:26 Nasal Cannula 2.00 02/27/17 13:01 96.4 62 18 163/92 100 02/27/17 12:45 97.6 61 15 149/87 97 Nasal Cannula 3 02/27/17 12:30 59 15 116/73 97 Nasal Cannula 3 02/27/17 12:15 58 15 130/80 95 Nasal Cannula 3 02/27/17 12:00 61 15 132/73 95 Nasal Cannula 3 02/27/17 11:49 Nasal Cannula 3 02/27/17 11:48 97.6 76 15 117/76 98 02/27/17 10:45 96 21 CBC/BMP: 02/28/17 0606 02/28/17 0606 Lab Results Laboratory Tests Test 02/27/17 02/28/17 20:52 06:06 White Blood Count 7.7 TH/MM3 10.0 TH/MM3 Red Blood Count 4.50 MIL/MM3 4.33 MIL/MM3 Hemoglobin 13.6 GM/DL 13.0 GM/DL Hematocrit 39.2 % 37.6 % Mean Corpuscular Volume 87.1 FL 86.8 FL Mean Corpuscular Hemoglobin 30.2 PG 30.0 PG Mean Corpuscular Hemoglobin 34.7 % 34.5 % Concent Red Cell Distribution Width 13.1 % 12.7 % Platelet Count 272 TH/MM3 261 TH/MM3 Mean Platelet Volume 7.9 FL 8.1 FL Sodium Level 130 MEQ/L 131 MEQ/L Potassium Level 5.3 MEQ/L 4.7 MEQ/L Chloride Level 95 MEQ/L 95 MEQ/L Carbon Dioxide Level 28.9 MEQ/L 29.6 MEQ/L Anion Gap 6 MEQ/L 6 MEQ/L Blood Urea Nitrogen 15 MG/DL 14 MG/DL Creatinine 1.11 MG/DL 0.94 MG/DL Estimat Glomerular Filtration 51 ML/MIN 62 ML/MIN Rate Random Glucose 127 MG/DL 131 MG/DL Calcium Level 8.3 MG/DL 8.4 MG/DL Magnesium Level 2.0 MG/DL Physical Exam General General Appearance: Well Nourished, No Acute Distress, Comfortable Eyes Eye Exam: Pupils Equal, Pupils Reactive Ears & Nose Ears & Nose Exam: Nasal Mucosa [place] Throat Throat Exam: Oral Mucosa [place] & Moist Neck Neck Exam: Neck Supple, Trachea Midline Pulmonary Resp Exam: Breath Sounds Equal Cardiology CV Exam: Regular Gastrointestinal/Abdomen GI Exam: Soft, Non-Tender, Bowel Sounds Present, Non-Distended Musculoskeletal MS Remarks left leg with dressing, splint intact Integumentary Skin Exam: Warm, Dry Extremeties Extremities Exam: Pedal Pulses Palpable, Trace Edema Neurologic Neuro Exam: Alert, Awake, Speech Clear, Bacteriology Professor Equal VTE Prophylaxis VTE Prophylaxis Meds: Lovenox Assessment/Plan Problem List: (1) Fracture of distal end of left tibia (2) Edema of left foot (3) Edema of left ankle (4) Fracture of distal fibula (5) History of CVA (cerebrovascular accident) (6) Hyponatremia (7) Depression (8) HTN (hypertension) (9) Acute renal injury Assessment/Plan 67-year-old female who came to the emergency room complaining of left foot swelling and pain, questionable history of recent cellulitis. Denies any actual injury. Imaging studies completed, was noted with fracture of the distal tib and fib. Also positive for linear nondisplaced fracture to the lateral base of the distal phalanx of the first ray. Was evaluated by orthopedic surgeon S/P Left lower extremity open reduction and internal fixation of distal tibial pilon fracture with close reduction of distal fibula fracture 02/27 -Appreciate orthopedic input Continue with postoperative orthopedic care -Questionable history recent cellulitis, continue with Ancef postoperatively -Pain management -Lovenox for DVT prophylaxis -Physical therapy per orthopedic recommendations, pt refused, D/W pt that she needs to work with PT Hyponatremia, etiology unclear sodium better today, 131 -continue to monitor BMP Acute renal injury, possibly secondary to dehydration-improved Continue with IV fluids BMP in the morning Avoid nephrotoxic agent History of CVA -Continue home medication Hypertension, stable -Continue home medical Lipidemia, stable Continue with home medication Anxiety and depression Continue with home medication Labs reviewed, improved CM for dc planning, will need SNF pt refusing PT, informed she needs to be evaluated and work the PT team DC planning in progress, hopefully to SNF 1-2 days D/W RN D/W Dr. Salazar D/W pt. D/W CM This patient was seen by myself and Dr. Salazar, this note is written his behalf Problem Qualifiers (1) Fracture of distal end of left tibia: Qualified Code: S82.302A - Closed fracture of distal end of left tibia, unspecified fracture morphology, initial encounter (2) Fracture of distal fibula: Qualified Code: S82.832A - Closed fracture of distal end of left fibula, unspecified fracture morphology, initial encounter (3) Depression: Qualified Code: F32.9 - Depression, unspecified depression type (4) HTN (hypertension): Qualified Code: I10 - Essential hypertension Mariaa Weeks [facility] Feb 28, 2017 10:30
[2017-02-28] MEDS: ACETAMINOPHEN/HYDROcodone 325 MG/5 MG TAB PO PRN ×3 (10:35→23:17)
[2017-02-28] MEDS: ENOXAPARIN SODIUM 40 MG/0.4 ML SYRINGE SQ SCH (10:35)
--- NOTE | 2017-02-28 11:45 | PD.ORT.PN ---
Subjective Post Op Day #: 1 Subjective Remarks Patient resting in bed in NAD. Patient is somnolent but appropriate. Objective Vitals Vital Signs Date Time Temp Pulse Resp B/P Pulse Ox O2 Delivery O2 Flow Rate FiO2 02/28/17 09:09 96 21 02/28/17 08:29 Nasal Cannula 1.00 02/28/17 08:28 98.6 65 17 114/66 99 02/28/17 07:25 Nasal Cannula 2.00 02/28/17 04:18 96.8 96 17 110/58 94 02/28/17 04:06 66 02/28/17 00:12 96.9 60 18 111/69 97 02/27/17 20:52 Nasal Cannula 2.00 02/27/17 20:19 97.5 94 18 144/82 99 02/27/17 18:30 93 21 02/27/17 16:00 97.5 64 18 141/81 93 02/27/17 13:34 98 Nasal Cannula 2.00 02/27/17 13:26 Nasal Cannula 2.00 02/27/17 13:01 96.4 62 18 163/92 100 02/27/17 12:45 97.6 61 15 149/87 97 Nasal Cannula 3 02/27/17 12:30 59 15 116/73 97 Nasal Cannula 3 02/27/17 12:15 58 15 130/80 95 Nasal Cannula 3 02/27/17 12:00 61 15 132/73 95 Nasal Cannula 3 02/27/17 11:49 Nasal Cannula 3 02/27/17 11:48 97.6 76 15 117/76 98 I/O 02/27/17 02/27/17 02/27/17 02/28/17 02/28/17 02/28/17 07:00 15:00 23:00 07:00 15:00 23:00 Intake Total 1240 ml 360 ml 240 ml Output Total 2 ml 1580 ml 1350 ml 875 ml Balance -2 ml -340 ml -990 ml -635 ml Intake Oral 240 ml 360 ml 240 ml IV Total 500 ml Other 500 ml Output Urine Total 2 ml 1550 ml 1350 ml 875 ml Stool Total 0 ml Estimated Blood Loss 30 ml # Voids 1 # Bowel Movements 1 1 0 Result Diagram: 02/28/1760502/28/17 06 Procedures Left ankle ORIF Objective Remarks Splint and dressing C/D/I. Patient moves toes well. + SILT X 5. BCR X 5. Assessment & Plan Ortho Post Op Day #: 1 Problem List: Assessment and Plan POD #1: Left ankle ORIF 1. NWB on LLE 2. Lovenox followed by ASA for DVT prophylaxis 3. Ice to the left ankle PRN 4. Stable for discharge home per ortho when medically cleared. 5. [place] out now. Dejon Peng [facility] Feb 28, 2017 11:45
[2017-02-28] MEDS: ATORVASTATIN 10 MG TAB PO SCH (20:31)
[2017-02-28] MEDS: LACTATED RINGER'S 1000 ML INJ 1,000 ML IV SCH (21:23)
--- NOTE | 2017-02-28 21:28 | EKG ---
Date Performed: 02/26/2017 Time Performed: 18:03:15 PTAGE: 57 years EKG: SINUS BRADYCARDIA BORDERLINE ECG PREVIOUS TRACING : 03/28/2015 01.35 DOCTOR: Tahira Christensen Interpretating Date/Time 02/28/2017 21:23:36
[2017-03-01 03:15] VITALS: BP 138/92; PULSE 61; RESP 18; TEMP 97.9; O2SAT 100
[2017-03-01] MEDS: ALPRAZolam 1 MG TAB PO PRN ×4 (03:21→23:54)
[2017-03-01] MEDS: SODIUM CHLOR 0.9% 1000 ML INJ 1,000 ML IV SCH (03:30)
[2017-03-01] MEDS: ACETAMINOPHEN/HYDROcodone 325 MG/5 MG TAB PO PRN ×4 (06:01→19:46)
[2017-03-01 06:08] VITALS: PULSE 60
[2017-03-01 07:11] LABS: BICARBONATE 28.1 MEQ/L (21.0-32.0); POTASSIUM 3.6 MEQ/L (3.5-5.1)
[2017-03-01 08:00] VITALS: BP 136/87; PULSE 60; RESP 18; TEMP 97.1; O2SAT 100
--- NOTE | 2017-03-01 08:34 | MH ---
cc: ISIS SALAZAR MD DATE OF ADMISSION: 02/26/2017 DATE OF : 62 CHIEF COMPLAINT Unable to walk on her foot, travel in the last 30 days none. HISTORY OF PRESENT ILLNESS This is a pleasant 57 year old white female who noted some left foot swelling approximately a month ago. The patient has not record of any acute injury. She states that she has seen her primary care physician on two different occasions and has been placed on Keflex, Bactrim and Lasix. The patient was positive for cellulitis and has been unable to bear weight for approximately on months. The patient states that the pain and being unable to ambulate continued to worsen. Approximately a week ago the patient got up to go to the bathroom and was attempting to non-weight bear on this left foot. She did stumble and fall back and states that she rolled unaware that she had injured the foot any further. The patient currently lives at [facility] and felt that she needed to be reevaluated again due to the increased swelling and inability to bear weight. The patient denies any chest pain, no shortness of breath, no headaches, no nausea, vomiting or diarrhea. She does have a positive history of constipation. She does note chronic pain and has been on hydrocodone for multiple years. The patient is a current tobacco user. Speech is noted to be slow but understandable. Some problems with word finding. The patient states she had a carotid endarterectomy back several years ago and had complications afterwards but is unable to give anymore data than this. She states she cannot always remember what she needs to. PAST MEDICAL HISTORY 1. Anxiety depression 2. Cardiovascular disease 3. Hyperlipidemia 4. Previous cerebrovascular accident patent notes after carotid endarterectomy. 5. Gastroesophageal reflux disease 6. Hypertension ALLERGIES AMOXICILLIN CLINDAMYCIN PAST SURGICAL HISTORY 1. Left carotid left leg 2. Abdominal surgery Some of this information is being obtained from the record due the patient's fair historian knowledge and word finding. SOCIAL HISTORY The patient is but currently does work. She uses no alcohol but does admit to a pack a day smoking since she her teenage years. No illicit drugs. MEDICATIONS Reported, 1. Gabapentin 2. Tramadol 3. Ropinirole 4. Lisinopril 5. Hydrocodone 6. Flexeril 7. Clonidine 8. Atorvastatin 9. Atenolol 10. Xanax 11. Escitalopram REVIEW OF SYSTEMS A 10 point review was attempted. Positives noted are patient's left foot edema and cellulitis, recent fracture, recent fall, chronic pain. Other systems negative or unremarkable. PHYSICAL EXAMINATION VITAL SIGNS: Temperature 97.9, pulse labile between 55 and 68, respirations 18, blood pressure initially in the emergency room 110/67, now 145/78, O2 sat 100% on room air. GENERAL: Well-nourished, well-developed white female looks to be her stated age resting on the stretcher, alert and participating in conversation. She has obvious left leg cellulitis and swelling. HEENT: Normocephalic, atraumatic. Mild difference is noted in her pupils, left is a 3, right is a 3.5 to 4. Tongue is midline. NECK: Supple. HEART: S1, S2, regular rate and rhythm. Borderline bradycardia. No murmurs, rubs or gallops appreciated. RESPIRATORY: Essentially clear anteriorly and posteriorly with no wheezing, rales or rhonchi. She has some diminished sounds in her lower bases. ABDOMEN: Flat, soft, nontender, nondistended. Active bowel sounds. MUSCULOSKELETAL: She can move her extremities with purpose. She does have limited motion secondary to swelling and pain in her left foot. SKIN: Warm and dry, thick skin turgor. She does have a moderate amount of erythema noted on her left ankle and foot. Skin is freckled with moderate amount of sun damage. NEUROLOGIC: She is alert, awake, responds to conversation. Speech is slow but understandable, some problems with word finding. LABORATORY DATA WBC 10.2, RBC 5.26, hemoglobin 15.7, hematocrit 46.4. Platelet count 281. Neutrophil count auto percentage 70.3. Chemistry - sodium and other chemistries are pending. PT INR is pending. IMAGING STUDIES Chest x-ray is pending. Ankle x-ray shows a fracture of the distal tibia and fibula horizontal to the tibia plafond angulation. This was not present on the previous study done on 02/17/17. Foot x-ray - fractures again noted to the distal tibia and fibula metaphases possible linear, nondisplaced fracture through the lateral base of the distal phalange of the first x-ray. Pending is a lower extremity CT and a chest x-ray. ASSESSMENT 1. Fracture of the distal fibula, 2. Fracture of the distal end of the left tibia, 3. Cellulitis, 4. Acute on chronic pain, 5. History of cerebrovascular accident 6. Hypertension 7. Hyperlipidemia 8. Gastroesophageal reflux disease 9. Tobacco abuse PLAN Admit inpatient status. Patient will receive gentle hydration with IV fluids. Vital signs will be at least every four hours. Activity is bedrest for now. Continue his cardiac monitoring due to her cardiovascular history and cerebrovascular accident, I&O. In the emergency room the patient received Ancef and visual acuity times one dose. Initial labs and x-rays were performed for her current diagnosis and treatment plan. The patient will be on Ancef IV q 6 hrs. Orthopedics has been consulted. We appreciate the expert opinion of ortho. The patient will eat a heart healthy diet for supper and then be nothing by mouth at midnight. The patient will receive pain management per ortho and/or hospitalist. The patient is full code full aggressive care and we will follow. Dictated by REECE Fajardo Isis Salazar MD JP/ /6:30 PM /8:28 AM gp PT WAS SEEN AND EXAMINED ON DAY OF ADMISSION FACE TO FACE TO TIME SPENT WITH PT CHART WAS REVIEWED INCLUDING LABS MEDS AND RAD DATA PLAN OF CARE WAS LENNY NEWELL IN DETAIL ABOVE LATE ENTRY ABOVE DICTATION WAS NOT AVAILABLE ON DAY OF ADMISSION JASON
[2017-03-01] MEDS: SODIUM CHLORIDE 0.9% FLUSH 10 ML FLUSH IV FLUSH SCH ×2 (09:00→19:46)
[2017-03-01] MEDS: ATENOLOL 100 MG TAB PO SCH ×3 (09:00→18:18)
[2017-03-01] MEDS: ENOXAPARIN SODIUM 40 MG/0.4 ML SYRINGE SQ SCH (10:00)
[2017-03-01] MEDS: cloNIDine HCL 0.1 MG TAB PO SCH ×2 (10:00→19:45)
[2017-03-01] MEDS: MULTIVITAMINS/MINERALS THERAPEUTIC TAB PO SCH (10:01)
[2017-03-01] MEDS: CYCLOBENZAPRINE HCL 10 MG TAB PO SCH ×3 (10:01→18:18)
[2017-03-01] MEDS: GABAPENTIN 100 MG CAP PO SCH ×3 (10:01→18:18)
[2017-03-01] MEDS: DOCUSATE SODIUM 50 MG/SENNA 8.6 MG TAB PO SCH ×2 (10:01→19:45)
[2017-03-01 12:00] VITALS: BP 142/91; PULSE 60; RESP 18; TEMP 98.3; O2SAT 99
--- NOTE | 2017-03-01 12:10 | PD.ORT.PN ---
Subjective Post Op Day #: 2 Subjective Remarks Patient OOB in chair with no pain to the left ankle. Patient is somnolent but appropriate. Objective Vitals Vital Signs Date Time Temp Pulse Resp B/P Pulse Ox O2 Delivery O2 Flow Rate FiO2 03/01/17 08:00 97.1 60 18 136/87 100 03/01/17 06:08 60 03/01/17 03:15 97.9 61 18 138/92 100 02/28/17 23:25 97.5 62 18 130/70 96 02/28/17 19:15 98.2 65 16 126/80 99 02/28/17 15:53 96 Room Air 02/28/17 15:53 97.8 65 17 134/79 96 I/O 02/28/17 02/28/17 02/28/17 03/01/17 03/01/17 03/01/17 07:00 15:00 23:00 07:00 15:00 23:00 Intake Total 240 ml 1000 ml 360 ml Output Total 875 ml 400 ml Balance -635 ml 1000 ml -40 ml Intake Oral 240 ml 800 ml 360 ml IV Total 200 ml Output Urine Total 875 ml 400 ml # Voids 2 2 # Bowel Movements 0 0 0 Result Diagram: 02/28/17 0606 03/01/17 0556 Procedures Left ankle ORIF Objective Remarks Splint and dressing C/D/I. Patient moves toes well. + SILT X 5. BCR X 5. Assessment & Plan Ortho Post Op Day #: 2 Problem List: Assessment and Plan POD #2: Left ankle ORIF 1. NWB on LLE 2. Lovenox followed by ASA for DVT prophylaxis 3. Ice to the left ankle PRN 4. Stable for discharge home per ortho when medically cleared. 5. Patient will f/u with Dr. Prado in 1 week. Dejon Peng [facility] Mar 01, 2017 12:10
--- NOTE | 2017-03-01 13:11 | HHI.PR ---
Subjective Subjective Remarks up in chair voiding without difficulty awake alert legs elevated. lt leg cast on (Mary Adkins) Review of Systems Constitutional Constitutional Remarks 10 point ROS done. Positive noted, pain management negative, other systems unremarkable. (Mary Adkins) GI/Abdomen GI/Abdominal Exam: Constipation GI/Abdomen Remarks denies per her personal OP schedule . No BM 4 days. usually goes for a week - 10 days,. Bowel regimin on board. (Mary Adkins) Musculoskeletal MS: Weakness, Stiffness (recent fx) (Mary Adkins) Integumentary Skin: Wounds Skin Remarks lt. leg cast on, no upper leg edema (Mary Adkins) Vitals/Results Intake & Output 02/28/17 02/28/17 03/01/17 15:00 23:00 07:00 Intake Total 1000 ml 360 ml Output Total 400 ml Balance 1000 ml -40 ml Intake Oral 800 ml 360 ml IV Total 200 ml Output Urine Total 400 ml # Voids 2 2 # Bowel Movements 0 0 Vital Signs Vital Signs Date Time Temp Pulse Resp B/P Pulse Ox O2 Delivery O2 Flow Rate FiO2 03/01/17 08:00 97.1 60 18 136/87 100 03/01/17 06:08 60 03/01/17 03:15 97.9 61 18 138/92 100 02/28/17 23:25 97.5 62 18 130/70 96 02/28/17 19:15 98.2 65 16 126/80 99 02/28/17 15:53 96 Room Air 02/28/17 15:53 97.8 65 17 134/79 96 (Mary Adkins) CBC/BMP: 02/28/17 0606 03/01/17 0556 Lab Results Laboratory Tests Test 03/01/17 05:56 Sodium Level 135 MEQ/L Potassium Level 3.6 MEQ/L Chloride Level 100 MEQ/L Carbon Dioxide Level 28.1 MEQ/L Anion Gap 7 MEQ/L Blood Urea Nitrogen 7 MG/DL Creatinine 0.70 MG/DL Estimat Glomerular Filtration 87 ML/MIN Rate Random Glucose 91 MG/DL Calcium Level 8.8 MG/DL Imaging Remarks Last Impressions Ankle X-Ray 02/27/17 0000 Signed Impressions: Service Date/Time: Monday, February 27, 2017 10:56 - CONCLUSION: Anatomic alignment. Yoni Ferreira MD FACR Lower Extremity CT 02/26/17 0000 Signed Impressions: Service Date/Time: Sunday, February 26, 2017 17:39 - CONCLUSION: Fracture of the distal tibia and fibula as described above. Yoni Ferreira MD FACR Foot X-Ray 02/26/17 0000 Signed Impressions: Service Date/Time: Sunday, February 26, 2017 15:49 - CONCLUSION: 1. Fractures through the distal tibial and fibular metaphyses. 2. Possible linear, nondisplaced fracture through the lateral base of the distal phalanx of the first ray Gamal Arits MD Chest X-Ray 02/26/17 0000 Signed Impressions: Service Date/Time: Sunday, February 26, 2017 17:51 - CONCLUSION: 1. No acute cardiopulmonary disease. 2. Degenerative changes, scoliosis and multilevel compression deformities involving the thoracic and upper lumbar spine. 3. Degenerative changes involving the shoulders bilaterally (right worse than left). Donta Raya MD (Hurst,Mary M. GROUT PUMP OPERATOR) Physical Exam General General Appearance: Well Nourished, No Acute Distress, Comfortable (Jed, Mary M. GROUT PUMP OPERATOR) Eyes Eye Exam: Pupils Equal, Pupils Reactive (HurstMary M. GROUT PUMP OPERATOR) Ears & Nose Ears & Nose Exam: Nasal Mucosa [place] (Jed,Mary M. GROUT PUMP OPERATOR) Throat Throat Exam: Oral Mucosa [place] & Moist (Jed,Mary M. GROUT PUMP OPERATOR) Neck Neck Exam: Neck Supple, Trachea Midline (Jed,Mary M. GROUT PUMP OPERATOR) Pulmonary Resp Exam: Breath Sounds Equal (Jed,Mary M. GROUT PUMP OPERATOR) Cardiology CV Exam: Regular (Jed,Mary M. GROUT PUMP OPERATOR) Gastrointestinal/Abdomen GI Exam: Soft, Non-Tender, Bowel Sounds Present, Non-Distended (HurstMary M. GROUT PUMP OPERATOR) Musculoskeletal MS Remarks lt. leg cast, elevated (Jed,Mary M. GROUT PUMP OPERATOR) Integumentary Skin Exam: Warm, Dry (HurstMary M. GROUT PUMP OPERATOR) Extremeties Extremities Exam: Pedal Pulses Palpable, Trace Edema (Mary Adkins) Neurologic Neuro Exam: Alert, Awake, Speech Clear, Grain Sampler Equal (Mary Adkins) VTE Prophylaxis VTE Prophylaxis Meds: Lovenox (Mary Akdins) Assessment/Plan Problem List: (1) Fracture of distal end of left tibia (2) Edema of left foot (3) Edema of left ankle (4) Fracture of distal fibula (5) History of CVA (cerebrovascular accident) (6) Hyponatremia (7) Depression (8) HTN (hypertension) (9) Acute renal injury Assessment/Plan S/P Left lower extremity open reduction and internal fixation of distal tibial pilon fracture with close reduction of distal fibula fracture 02/27 -Appreciate orthopedic input Continue with postoperative orthopedic care and Pain management -Lovenox for DVT prophylaxis -Physical therapy per orthopedic recommendations, will follow pt. preference. Acute renal injury, possibly secondary to dehydration-improved Continue with IV fluids stable, monitor Anxiety and depression Continue with home medication, supportive care Labs reviewed, improved CM for dc planning, will need SNF if patient will approve. Doesnt want PT for now. DC planning in progress, hopefully to SNF 1-2 days D/W RN D/W Dr. Benítez, pt. seen on her behalf D/W pt. D/W CM (Mary Adkins) Assessment/Plan patient seen and examined cleared by ortho for discharge awaiting Pt recommendations came from [facility] and cannot go back to [facility] with any DMEs complex discharge medically cleared pending placement Luke referral discussed with patient discussed with nursing staff discussed with Mary (Ursula Benítez MD) Problem Qualifiers (1) Fracture of distal end of left tibia: Qualified Code: S82.302A - Closed fracture of distal end of left tibia, unspecified fracture morphology, initial encounter (2) Fracture of distal fibula: Qualified Code: S82.832A - Closed fracture of distal end of left fibula, unspecified fracture morphology, initial encounter (3) Depression: Qualified Code: F32.9 - Depression, unspecified depression type (4) HTN (hypertension): Qualified Code: I10 - Essential hypertension Mary Adkins Mar 01, 2017 13:11 Ursula Benítez MD Mar 01, 2017 14:24
[2017-03-01] MEDS: DEXT 5%-NACL 0.45% 1000 ML INJ 1,000 ML IV SCH ×2 (13:17→20:26)
[2017-03-01 16:00] VITALS: BP 138/97; PULSE 66; RESP 18; TEMP 96.8; O2SAT 98
[2017-03-01] MEDS: ATORVASTATIN 10 MG TAB PO SCH (19:45)
[2017-03-01 20:00] VITALS: BP 172/94; PULSE 65; RESP 18; TEMP 97.9; O2SAT 100
[2017-03-01] MEDS: LACTATED RINGER'S 1000 ML INJ 1,000 ML IV SCH (20:26)
[2017-03-02] VITALS (7 sets, daily range): BP systolic 117–156; BP diastolic 61–97; PULSE 64–79; RESP 15–19; TEMP 96.5–98.4; O2SAT 96–100
[2017-03-02] MEDS: SODIUM CHLOR 0.9% 1000 ML INJ 1,000 ML IV SCH ×2 (02:30→21:50)
[2017-03-02] MEDS: ACETAMINOPHEN/HYDROcodone 325 MG/5 MG TAB PO PRN ×3 (04:20→18:18)
[2017-03-02] MEDS: ALPRAZolam 1 MG TAB PO PRN ×3 (06:25→18:18)
[2017-03-02] MEDS: SODIUM CHLORIDE 0.9% FLUSH 10 ML FLUSH IV FLUSH SCH ×2 (09:00→21:42)
[2017-03-02] MEDS: DEXT 5%-NACL 0.45% 1000 ML INJ 1,000 ML IV SCH ×2 (09:17→19:09)
[2017-03-02] MEDS: cloNIDine HCL 0.1 MG TAB PO SCH ×2 (11:30→21:40)
[2017-03-02] MEDS: ATENOLOL 100 MG TAB PO SCH ×3 (11:30→18:19)
[2017-03-02] MEDS: MULTIVITAMINS/MINERALS THERAPEUTIC TAB PO SCH (11:30)
[2017-03-02] MEDS: GABAPENTIN 100 MG CAP PO SCH ×3 (11:31→17:06)
[2017-03-02] MEDS: CYCLOBENZAPRINE HCL 10 MG TAB PO SCH ×3 (11:31→17:06)
[2017-03-02] MEDS: DOCUSATE SODIUM 50 MG/SENNA 8.6 MG TAB PO SCH ×2 (11:31→21:40)
[2017-03-02] MEDS: ENOXAPARIN SODIUM 40 MG/0.4 ML SYRINGE SQ SCH (11:32)
--- NOTE | 2017-03-02 11:46 | HHI.PR ---
Subjective Subjective Remarks up in chair, 1-2 people assist, NWB lt. leg voiding without difficulty awake lt leg cast on anxious today (Mary Adkins) Review of Systems Constitutional Constitutional Remarks 10 point ROS done. Positive noted, pain management, anxiety, NWB lt. leg, other systems unremarkable. (Mary Adkins) GI/Abdomen GI/Abdominal Exam: Constipation GI/Abdomen Remarks denies per her personal OP schedule . No BM 4 days. usually goes for a week - 10 days,. Bowel regimin on board. (Mary Adkins) Musculoskeletal MS: Weakness, Stiffness (recent fx) (Mary Adkins) Integumentary Skin: Wounds Skin Remarks lt. leg cast on, no upper leg edema (Mary Adkins) Vitals/Results Intake & Output 03/01/17 03/01/17 03/02/17 15:00 23:00 07:00 Intake Total 1220 ml 720 ml 720 ml Balance 1220 ml 720 ml 720 ml Intake Oral 1220 ml 720 ml 720 ml # Voids 4 2 2 # Bowel Movements 1 0 1 Vital Signs Vital Signs Date Time Temp Pulse Resp B/P Pulse Ox O2 Delivery O2 Flow Rate FiO2 03/02/17 11:32 96.5 79 18 122/85 97 03/02/17 08:00 98.4 66 18 139/61 100 03/02/17 04:20 97.8 65 17 143/85 97 03/02/17 00:20 97.5 64 16 117/74 100 03/01/17 20:00 97.9 65 18 172/94 100 03/01/17 16:00 96.8 66 18 138/97 98 03/01/17 14:13 18 03/01/17 14:13 18 03/01/17 12:00 98.3 60 18 142/91 99 (Mary Adkins) CBC/BMP: 02/28/17 0606 03/01/17 0556 Lab Results Laboratory Tests Test 03/01/17 13:20 Nasal Screen MRSA (PCR) NEGATIVE Current Medications Active Medications Escitalopram Oxalate (Lexapro) 10 mg DAILY PO; Start 03/03/17 at 09:00; Status UNV (Piqua,Mary M. GLORY HOLE TENDER) Physical Exam General General Appearance: Well Nourished, No Acute Distress, Comfortable, Anxious ( Jed,Mary M. GLORY HOLE TENDER) Eyes Eye Exam: Pupils Equal, Pupils Reactive (Jed,Mary M. GLORY HOLE TENDER) Ears & Nose Ears & Nose Exam: Nasal Mucosa [place] (Jed,Mary M. GLORY HOLE TENDER) Throat Throat Exam: Oral Mucosa [place] & Moist (Jed,Mary M. GLORY HOLE TENDER) Neck Neck Exam: Neck Supple, Trachea Midline (Jed,Mary M. GLORY HOLE TENDER) Pulmonary Resp Exam: Breath Sounds Equal (Jed,Mary M. GLORY HOLE TENDER) Cardiology CV Exam: Regular (Jed,Mary M. GLORY HOLE TENDER) Gastrointestinal/Abdomen GI Exam: Soft, Non-Tender, Bowel Sounds Present, Non-Distended (Jed,Mary M. GLORY HOLE TENDER) Musculoskeletal MS Exam: Joints Intact MS Remarks lt. leg cast, elevated NWB, LL (PiquaMary M. GLORY HOLE TENDER) Integumentary Skin Exam: Warm, Dry (Piqua,Mary M. GLORY HOLE TENDER) Extremeties Extremities Exam: Pedal Pulses Palpable, Trace Edema (Piqua,Mary M. GLORY HOLE TENDER) Neurologic Neuro Exam: Alert, Awake, Speech Clear, Swing Saw Operator Equal (Jed,Mary M. GLORY HOLE TENDER) VTE Prophylaxis VTE Prophylaxis Meds: Lovenox (Piqua,Mary M. GLORY HOLE TENDER) Assessment/Plan Problem List: (1) Fracture of distal end of left tibia (2) Edema of left foot (3) Edema of left ankle (4) Fracture of distal fibula (5) History of CVA (cerebrovascular accident) (6) Hyponatremia (7) Depression (8) HTN (hypertension) (9) Acute renal injury Assessment/Plan S/P Left lower extremity open reduction and internal fixation of distal tibial pilon fracture with close reduction of distal fibula fracture 02/27 -Appreciate orthopedic input postoperative orthopedic care, NWB LL. cleared for rehab dc Pain management -Lovenox for DVT prophylaxis -Physical therapy daily Anxiety and depression Home med Lexapro, Xanax prn Labs reviewed, vitals reviewed, stable. CM for dc planning, went with her to discuss. Patient anxious and wants to go back to her [facility]. CM says unable to go with a walker per facility. DC planning in progress, patient refusing to go to outside rehab facility. Working with for a plan. D/W nurse D/W Dr. Benítez D/W SOURAV (Mary Adkins) Assessment/Plan patient seen and examined needs safe discharge planning patient seems to be irrational and not able to understand asked to talk to her significant other in am nicotine patch psych consult for decision making competence discussed with patient in detail discussed with nursing staff discussed with Mary NEWELL (Ursula Benítez MD) Problem Qualifiers (1) Fracture of distal end of left tibia: Qualified Code: S82.302A - Closed fracture of distal end of left tibia, unspecified fracture morphology, initial encounter (2) Fracture of distal fibula: Qualified Code: S82.832A - Closed fracture of distal end of left fibula, unspecified fracture morphology, initial encounter (3) Depression: Qualified Code: F32.9 - Depression, unspecified depression type (4) HTN (hypertension): Qualified Code: I10 - Essential hypertension Mary Adkins Mar 02, 2017 11:46 Ursula Benítez MD Mar 02, 2017 14:43
[2017-03-02] MEDS: NICOTINE 21 MG/24 HR PATCH T-DERMAL SCH (17:06)
[2017-03-02] MEDS: REMOVE OLD PATCH T-DERMAL SCH (21:00)
[2017-03-02] MEDS: ATORVASTATIN 10 MG TAB PO SCH (21:40)
[2017-03-02] MEDS: LACTATED RINGER'S 1000 ML INJ 1,000 ML IV SCH (21:50)
[2017-03-03] MEDS: DEXT 5%-NACL 0.45% 1000 ML INJ 1,000 ML IV SCH ×2 (01:22→15:17)
[2017-03-03] MEDS: ACETAMINOPHEN/HYDROcodone 325 MG/5 MG TAB PO PRN ×4 (02:40→20:51)
[2017-03-03] MEDS: ALPRAZolam 1 MG TAB PO PRN ×4 (02:43→20:50)
[2017-03-03 04:15] VITALS: BP 143/98; PULSE 72; RESP 17; TEMP 97.6; O2SAT 100
[2017-03-03 08:00] VITALS: BP 145/83; PULSE 68; RESP 18; TEMP 96.8; O2SAT 99
[2017-03-03] MEDS: GABAPENTIN 100 MG CAP PO SCH ×3 (08:33→18:04)
[2017-03-03] MEDS: ATENOLOL 100 MG TAB PO SCH ×3 (08:33→18:04)
[2017-03-03] MEDS: MULTIVITAMINS/MINERALS THERAPEUTIC TAB PO SCH (08:34)
[2017-03-03] MEDS: CYCLOBENZAPRINE HCL 10 MG TAB PO SCH ×3 (08:34→18:04)
[2017-03-03] MEDS: DOCUSATE SODIUM 50 MG/SENNA 8.6 MG TAB PO SCH ×2 (08:34→20:30)
[2017-03-03] MEDS: NICOTINE 21 MG/24 HR PATCH T-DERMAL SCH (08:35)
[2017-03-03] MEDS: SODIUM CHLORIDE 0.9% FLUSH 10 ML FLUSH IV FLUSH SCH ×2 (08:36→20:29)
[2017-03-03] MEDS: cloNIDine HCL 0.1 MG TAB PO SCH ×2 (08:39→20:29)
[2017-03-03] MEDS: ESCITALOPRAM OXALATE 10 MG TAB PO SCH (08:39)
--- NOTE | 2017-03-03 10:28 | HHI.PR ---
Subjective Subjective Remarks Resting in bed Talking on phone Trying to eat her breakfast Anxiety mild to moderate Still refusing to go to rehabilitation (Mary Adkins) Review of Systems Constitutional Constitutional: Weakness Constitutional Remarks 10 point ROS done. Positive noted, pain management, anxiety, NWB lt. leg, questionable mentation current situation, see positive notes other systems unremarkable. (Mary Adkins) GI/Abdomen GI/Abdominal Exam: Constipation GI/Abdomen Remarks denies per her personal OP schedule . No BM 4 days. usually goes for a week - 10 days,. Bowel regimin on board. (Mary Adkins) Musculoskeletal MS: Weakness, Stiffness (recent fx), Swelling (left lower leg), Discomfort/Pain (Mary Adkins) Integumentary Skin: Wounds Skin Remarks lt. leg cast on, no upper leg edema (Mary Adkins) Neurologic Neurologic Remarks Anxious, questionable mentation and orientation to current situation (Mary Adkins) Psychiatric Psychiatric: Agitation, Anxiety (Mary Adkins) Vitals/Results Intake & Output 03/02/17 03/02/17 03/03/17 15:00 23:00 07:00 Intake Total 240 ml 120 ml 240 ml Balance 240 ml 120 ml 240 ml Intake Oral 240 ml 120 ml 240 ml # Voids 2 1 2 # Bowel Movements 1 0 0 Vital Signs Vital Signs Date Time Temp Pulse Resp B/P Pulse Ox O2 Delivery O2 Flow Rate FiO2 03/03/17 08:00 96.8 68 18 145/83 99 03/03/17 07:25 Room Air 03/03/17 04:15 97.6 72 17 143/98 100 03/02/17 19:55 98.4 67 15 156/97 96 03/02/17 16:00 98.2 66 15 121/85 98 03/02/17 15:37 97.7 70 19 144/92 99 03/02/17 11:32 96.5 79 18 122/85 97 (Mary Adkins) CBC/BMP: 02/28/17 0606 03/01/17 0556 Imaging Remarks Last Impressions Ankle X-Ray 02/27/17 0000 Signed Impressions: Service Date/Time: Monday, February 27, 2017 10:56 - CONCLUSION: Anatomic alignment. Yoni Ferreira MD FACR Lower Extremity CT 02/26/17 0000 Signed Impressions: Service Date/Time: Sunday, February 26, 2017 17:39 - CONCLUSION: Fracture of the distal tibia and fibula as described above. Yoni Ferreira MD FACR Foot X-Ray 02/26/17 0000 Signed Impressions: Service Date/Time: Sunday, February 26, 2017 15:49 - CONCLUSION: 1. Fractures through the distal tibial and fibular metaphyses. 2. Possible linear, nondisplaced fracture through the lateral base of the distal phalanx of the first ray Gamal Artis MD Chest X-Ray 02/26/17 0000 Signed Impressions: Service Date/Time: Sunday, February 26, 2017 17:51 - CONCLUSION: 1. No acute cardiopulmonary disease. 2. Degenerative changes, scoliosis and multilevel compression deformities involving the thoracic and upper lumbar spine. 3. Degenerative changes involving the shoulders bilaterally (right worse than left). Donta Raya MD Current Medications Active Medications Escitalopram Oxalate (Lexapro) 10 mg DAILY PO Last administered on 03/03/17 08: 39; Admin Dose 10 MG; Start 03/03/17 at 09:00 Miscellaneous Information 1 HS T-DERMAL; Start 03/02/17 at 21:00 Nicotine (Habitrol 21 Mg Patch.24 Hr) 1 patch DAILY T-DERMAL Last administered on 03/03/17 08:35; Admin Dose 1 PATCH; Start 03/02/17 at 14:45 (Mary Adkins) Physical Exam General General Appearance: Well Nourished, No Acute Distress, Comfortable, Anxious ( Mary Adkins. [employer] PROFESSION[employer]) Eyes Eye Exam: Pupils Equal, Pupils Reactive (Mary Adkins [employer] HE[employer] PROFESSIONAL) Ears & Nose Ears & Nose Exam: Nasal Mucosa [place] (Mary Adkins [employer] HE[employer] PROFESSIONAL) Throat Throat Exam: Oral Mucosa [place] & Moist (Mary Adkins [employer] HE[employer] PROFESSIONAL) Neck Neck Exam: Neck Supple, Trachea Midline (Mary Adkins [employer] HE[employer] PROFESSIONAL) Pulmonary Resp Exam: Breath Sounds Equal, Poor Inspiratory Effort (low volumes, smoker) ( Mary Adkins M. [employer] HE[employer] PROFESSIONAL) Cardiology CV Exam: Regular (Jed,Susan M. [employer] HE[employer] PROFESSIONAL) Gastrointestinal/Abdomen GI Exam: Soft, Non-Tender, Bowel Sounds Present, Non-Distended (Mary Adkins M. [employer] HE[employer] PROFESSIONAL) Musculoskeletal MS Exam: Joints Intact MS Remarks lt. leg cast, elevated NWB, LL ([place],Mary M. [employer] HE[employer] PROFESSIONAL) Integumentary Skin Exam: Warm, Dry ([place],Susan M. [employer] HE[employer] PROFESSIONAL) Extremeties Extremities Exam: Pedal Pulses Palpable, Trace Edema (Jed,Mary M. [employer] HE[employer] PROFESSIONAL) Neurologic Neuro Exam: Alert, Awake, Speech Clear, Airbrush Artist Equal (Jed,Susan M. [employer] HE[employer] PROFESSIONAL) VTE Prophylaxis VTE Prophylaxis Meds: Lovenox (Mary Adkins M. [employer] HE[employer] PROFESSIONAL) Assessment/Plan Problem List: (1) Fracture of distal end of left tibia (2) Edema of left foot (3) Edema of left ankle (4) Fracture of distal fibula (5) History of CVA (cerebrovascular accident) Plan: Questionable cognition for discharge planning and safety issues, possible history of TIAs. Psych consult today are his expert opinion on her cognition and assistance with her plan of care (6) Hyponatremia (7) Depression (8) HTN (hypertension) (9) Acute renal injury Assessment/Plan S/P Left lower extremity open reduction and internal fixation of distal tibial pilon fracture with close reduction of distal fibula fracture 02/27 -Appreciate orthopedic input postoperative orthopedic care, NWB LL. cleared for rehab dc on 03/01, pt refuses to go to next level of care. Questionable cognition issues. Pain management -Lovenox for DVT prophylaxis -Physical therapy daily Constipation medications are ordered today for bowel regimen. Anxiety and depression Home med Lexapro restarted, Xanax prn Labs reviewed, vitals reviewed, Patient seen per Dr. benitez and myself on 03/01/17 to discuss her discharge planning. According to Dr. benitez's notes she feels patient is irrational, and not understanding her current situation for discharge planning, and safety of her nonweightbearing left leg. Patient does have a history of CVA, TIAs, which may be affecting her cognition. CM for dc planning, went with her to discuss. Patient anxious and wants to go back to her [facility]. CM says unable to go with a walker per facility. Arrangements attempted to go to rehab facility, but patient states the people in the pictures look sick. Even though she is being told she cant go back to her previous [facility], patient is not processing her current situation of discharge planning. Has become anxious, and appears to have cognitive issues of processing information. She currently is unable to make decisions for herself. No OP psy workup to my knowledge. Psy consult done today. Plan for now is to get Palliative care consult to assist in finding a decision maker for her. She is not currently safe to discharge With NWB status with no stable place to go. DC planning, on hold until cognitive needs have been further discussed. D/W nurse D/W Dr. alvarez, seen on his behalf D/W CM (Mary Adkins) Assessment/Plan Patient seen and examined Labs reviewed Medications reviewed Somewhat previous notes reviewed Plan of care discussed with [employer] HE[employer] PROFESSIONAL Discussed/explained to patient (Norma Alvarez MD) Problem Qualifiers (1) Fracture of distal end of left tibia: Qualified Code: S82.302A - Closed fracture of distal end of left tibia, unspecified fracture morphology, initial encounter (2) Fracture of distal fibula: Qualified Code: S82.832A - Closed fracture of distal end of left fibula, unspecified fracture morphology, initial encounter (3) Depression: Qualified Code: F32.9 - Depression, unspecified depression type (4) HTN (hypertension): Qualified Code: I10 - Essential hypertension Mary Adkins Mar 03, 2017 10:28 Norma Alvarez MD Mar 03, 2017 13:22
[2017-03-03] MEDS: MAGNESIUM HYDROXIDE SUSP 30 ML CUP PO SCH (11:30)
[2017-03-03 11:45] VITALS: BP 150/89; PULSE 70; RESP 19; TEMP 97.5; O2SAT 96
[2017-03-03] MEDS: ENOXAPARIN SODIUM 40 MG/0.4 ML SYRINGE SQ SCH (13:50)
--- NOTE | 2017-03-03 15:45 | PD.CONS ---
Provisional Diagnosis Admission Date Feb 26, 2017 at 17:33 [place] I. Depressive disorder, r/o vascular dementia [place] II. Deferred [place] III. GERD, HTN, CVA, fracture of distal left fibula [place] IV. Poor family support [place] V. 56 History of Present Illness Service Psychiatry Consult Requested By Primary Care Physician Non-Staff HPI The patient is a 57 years old woman, domicile in a [facility], single, with psychiatric history of depression, no previous psychiatric hospitalizations, no previous suicidal attempts, she is in Lexapro 10 mg prescribed by [facility] psychiatrist, medical history of HTN, GERD, CVA, hospitalized due to fracture in the distal left Tibia. Consulted to psychiatry to assess decision-making capacity to refuse placement. Patient has been recommended to go to comprehensive rehabilitation, but she refuses requesting to go to live with her boyfriend. On psychiatric evaluation today patient is found in her bed, calm, cooperative. Patient reports good mood, denies depressive symptoms, denies anhedonia, denies hopelessness, denies helplessness , denies worthlessness, denies Irvin and homicidal ideation. She denies visual and auditory hallucinations, no paranoia, agitation or aggressive behavior observed. Patient states that she wants to be discharged to go to live with her boyfriend in [place]. When patient is asked but the reason of this hospitalization she is unable to verbalize it. Patient is fully oriented 3, she knows what she is, she knows the date, she knows was the mental health nurse practitioner, she can answer in a logical, coherent and relevant manner most of superficial questions. However, patient seems to have an impairment in recent and immediate memory, abstraction and executive function. Patient refused to complete Mini-Mental state, saying that she doesn't want to play more games and she just wants to be discharged. Patient is unable to express an understanding and appreciation of current medical conditions, she is unable to express a plan for her outpatient care. When she was asked about who will be the person to make decisions for her in case she can't, she answered that her daughter. On conversation with surgery center administrator of her living facility patient daughters is currently in detention. Patient denies the use of illicit drugs and alcohol. Review of Systems Constitutional: DENIES: Diaphoretic episodes, Fatigue, Fever, Weight gain, Weight loss, Chills, Dizziness, Change in appetite, Night Sweats Endocrine: DENIES: Abnorml menstrual pattern, Heat/cold intolerance, Polydipsia , Polyuria, Polyphagia Eyes: DENIES: Blurred vision, Diplopia, Eye inflammation, Eye pain, Vision loss , Photosensitivity, Double Vision Ears, nose, mouth, throat: DENIES: Tinnitus, Hearing loss, Vertigo, Nasal discharge, Oral lesions, Throat pain, Hoarseness, Ear Pain, Running Nose, Epistaxis, Sinus Pain, Toothache, Odynophagia Respiratory: DENIES: Apneas, Cough, Snoring, Wheezing, Hemoptysis, Sputum production, Shortness of breath Cardiovascular: DENIES: Chest pain, Palpitations, Syncope, Dyspnea on Exertion , PND, Lower Extremity Edema, Orthopnea, Claudication Gastrointestinal: DENIES: Abdominal pain, Black stools, Bloody stools, Constipation, Diarrhea, Nausea, Vomiting, Difficulty Swallowing, Anorexia Musculoskeletal: DENIES: Joint pain, Muscle aches, Stiffness, Joint Swelling, Back pain, Neck pain Integumentary: DENIES: Abnormal pigmentation, Pruritus, Rash, Nail changes, Breast masses, Breast skin changes, Nipple discharge Hematologic/lymphatic: DENIES: Bruising, Lymphadenopathy Immunologic/allergic: DENIES: Eczema, Urticaria Neurologic: DENIES: Abnormal gait, Headache, Localized weakness, Paresthesias, Seizures, Speech Problems, Tremor, Poor Balance Past Family Social History Coded Allergies: Amoxicillin (Verified Allergy, Unknown, 04/23/16) Clindamycin (Unverified Allergy, Unknown, 04/23/16) Active Scripts Aspirin 325 Mg [id number] Mg PO DAILY #30 TAB Ref 0 Start Aspirin after Lovenox is completed. Prov:Jean-Claude Prado MD 02/27/17 Enoxaparin Inj (Lovenox Inj)40 Mg/0.4 Ml Syr40 Mg SQ DAILY #10 SYRINGE Ref 0 Start Aspirin after Lovenox is completed. Prov:Jean-Claude Prado MD 02/27/17 Hydrocodone-Acetaminophen ([place])5-325 mg Tab1-2 Tab PO Q4H PRN (PAIN) #60 TAB Ref 0 Prov:Jean-Claude Prado MD 02/27/17 Prednisone (Deltasone)20 Mg Tab40 Mg PO DAILY 5 Days Ref 0 Prov:Yenni Hancock 02/19/17 Sulfamethoxazole-Trimethoprim (Bactrim DS)800-160 Mg Tab1 Tab PO BID 10 Days Ref 0 Prov:Yenni Hancock [employer]ADDLE [employer]ING [employer]ITCHER 02/19/17 Cephalexin (Keflex)500 Mg [id number] Mg PO Q6H 10 Days Ref 0 Prov:Yenni Hancock S[employer]ING STITCHER 02/19/17 Ibuprofen 800 Mg [id number] Mg PO Q6HR PRN (PAIN) #30 TAB Ref 0 Prov:Yenni Hancock [employer]ING STITCHER 02/17/17 Reported Medications Gabapentin 100 Mg [id number] Mg PO TID #90 CAP Ref 0 02/19/17 Tramadol 50 Mg Tab50 Mg PO TID PRN (PAIN) Ref 0 02/19/17 Ropinirole 3 Mg Tab3 Mg PO TID #90 TAB Ref 0 02/19/17 Lisinopril 40 Mg Tab40 Mg PO DAILY #30 TAB Ref 0 02/19/17 Hydrocodone-Acetaminophen 5-300 Mg Tab1 Tab PO Q4H PRN (PAIN) Ref 0 02/19/17 Escitalopram 10 Mg Tab10 Mg PO DAILY #30 TAB Ref 0 02/19/17 Cyclobenzaprine (Flexeril)10 Mg Tab10 Mg PO TID #90 TAB Ref 0 02/19/17 Clonidine 0.1 Mg Tab0.1 Mg PO BID #60 TAB Ref 0 02/19/17 Atorvastatin 10 Mg Tab10 Mg PO HS #30 TAB Ref 0 02/19/17 Atenolol 100 Mg Tab75 Mg PO TID #60 TAB Ref 0 02/19/17 Alprazolam 2 Mg Tab2 Mg PO Q6H PRN (ANXIETY) 02/19/17 Current Medications Medications (Trade) Dose Ordered Sig/Thais Route Start Time Stop Time Status Last Admin (NS 1000 ml Inj) 1,000 ml @ 50 mls/hr Q20H IV 02/26/17 18:30 02/26/17 18:38 (Tenormin) 75 mg TID PO 02/27/17 09:00 03/03/17 13:50 (Lipitor) 10 mg HS PO 02/26/17 22:30 03/02/17 21:40 (Catapres) 0.1 mg BID PO 02/27/17 09:00 03/03/17 08:39 (Flexeril) 10 mg TID PO 02/27/17 09:00 03/03/17 13:50 (Neurontin) 100 mg TID PO 02/27/17 09:00 03/03/17 13:50 (Requip) 3 mg TID PO 02/27/17 09:00 03/03/17 13:50 (Xanax) 2 mg Q6H PRN PO 02/26/17 23:00 03/03/17 14:48 Acetaminophen 650 mg 650 mg Q6H PRN PO 02/26/17 22:45 Lactated Ringer's 1,000 ml @ 0 mls/hr Q24H IV 02/27/17 01:15 (D5W-11/30 NS 1000 ml Inj) 1,000 ml @ 100 mls/hr Q10H IV 02/27/17 11:17 02/28/17 15:11 (NS Flush) 2 ml UNSCH PRN IV FLUSH 02/27/17 12:45 (NS Flush) 2 ml BID IV FLUSH 02/27/17 21:00 03/03/17 08:36 (Lovenox Inj) 40 mg Q24H SQ 02/28/17 11:00 03/09/17 11:01 03/03/17 13:50 Senna/Docusate Sodium 1 tab 1 tab BID PO 02/27/17 21:00 03/03/17 08:34 (Ancef Inj/NS Inj) 100 ml @ 200 mls/hr Q8H IV 02/27/17 18:00 03/01/17 03:22 Miscellaneous Information UNSCH PRN XX 02/27/17 11:30 ([place] 5-325 Mg) 1 tab Q4H PRN PO 02/27/17 11:30 02/27/17 19:27 ([place] 5-325 Mg) 2 tab Q6H PRN PO 02/27/17 11:30 03/03/17 14:48 (Zofran Inj) 4 mg Q4H PRN IVP 02/27/17 11:30 (Theragran M Tab) 1 tab DAILY PO 02/28/17 09:00 03/03/17 08:34 (Benadryl) 25 mg Q6H PRN PO 02/27/17 11:30 (Narcan Inj) 0.4 mg UNSCH PRN IV 02/27/17 11:30 (Morphine Inj) 2 mg Q3H PRN IV PUSH 02/27/17 11:30 02/28/17 20:30 (Lexapro) 10 mg DAILY PO 03/03/17 09:00 03/03/17 08:39 (Habitrol 21 Mg Patch.24 Hr) 1 patch DAILY T-DERMAL 03/02/17 14:45 03/03/17 08:35 Miscellaneous Information 1 HS T-DERMAL 03/02/17 21:00 (Milk Of [place]) 30 ml DAILY PO 03/03/17 11:30 Family History Patient denies Social History Patient was born and raised in [place], she has been living in [place] since the age of 25, she lives in [facility], she is unemployed, on SSI, her highest level of education is GED Physical Exam Vital Signs Vital Signs Date Time Temp Pulse Resp B/P Pulse Ox O2 Delivery O2 Flow Rate FiO2 03/03/17 11:45 97.5 70 19 150/89 96 03/03/17 07:25 Room Air 02/28/17 09:09 21 02/28/17 08:29 1.00 I/O 03/02/17 03/02/17 03/03/17 08:00 16:00 00:00 Intake Total 720 ml 240 ml 120 ml Balance 720 ml 240 ml 120 ml Mental Status Examination Appearance woman, overweight, fair hygiene, who appears older than his stated age , calm and cooperative Speech: Unremarkable Orientation: x3 Memory: Impaired (describe) Thought Process: Logical Thought Content: Unremarkable Hallucination Type: None Suicidal Ideation: No Previous Suicide Attempts: No Homicidal Ideation: No Previous Homicide Attempts: No Judgement: Poor Affect: Irritable Mood: Angry Motor Activity: Normal gait Assessment & Plan Problem List: (1) Major neurocognitive disorder Assessment & Plan: On psychiatric evaluation the patient denies depressive symptoms, she denies anxiety, she denies emmy, she denies perceptual disturbances. Patient denies suicidal and homicidal ideation, she denies visual and auditory hallucinations. No agitation, no aggressive behavior, no paranoia, no delusions observed. Patient is oriented 3, but has visible impairment in recent and immediate memory, abstraction, judgment, and executive function. Even though complete cognitive test was not performed, an underlying , undiagnosed cognitive impairment most probably related with CVA is highly suspected. Since the patient is unable to express the reason of her hospitalization, is unable to verbalize a clear understanding and appreciation of current medical problems, she has unrealistic expectations about her prognosis and an completely unreliable plan of being discharged to her boyfriend 's house, I court of appeals judge for patient's own benefit, that she does not have decision- making capacity to participate in discharge planning at this moment. She can continue Lexapro 10 mg for depression. Agree 100% with the involvement of palliative care in this case to determining who will be the surrogated decision maker for the patient or health care by proxy. Consult appreciated ICD Code: F03.90 Assessment & Plan Estimated LOS: days Jimy Arredondo MD Mar 03, 2017 15:45
[2017-03-03 16:09] VITALS: BP 145/84; PULSE 62; RESP 16; TEMP 97; O2SAT 99
--- NOTE | 2017-03-03 16:32 | PD.CONS ---
Consult Service Palliative Care Consult Requested By Meron NEWELL Primary Care Physician Non-Staff Reason for Consultation a. To assist with evaluation and management of symptoms including: Pain lle b. To assist medical decision maker(s) with: better understanding of current medical conditions; weighing benefits/burdens of medical treatment options; making medical treatment decisions. HPI History of Present Illness This 66-year-old female presented to the ED on 02/26/17 with complaints of left foot swelling and pain, which was inhibiting her ability to walk. He saw her PCP several days prior and had been prescribed antibiotics she was on Bactrim, Keflex. Pain was worsening despite ongoing treatment, patient reported suffering a fall a few days prior to presentation. Patient with known history of CVA. Currently resides at [facility]. * ED course: Imaging of the LEFT foot notes fractures through distal tibial and fibular metaphyseal disease, possible linear nondisplaced fracture through lateral base of distal phalanx. Region to be iced, CT scan pending, orthopedics consulted, felt she may need surgical intervention. Admitted for further evaluation and management. * Orthopedics notes conservative treatment for great toe fracture however distal tibial fracture is complex and if untreated could lead to deformity and ultimately the inability to ambulate so recommend surgical management, patient planned for ORIF versus closed reduction and external excision of the soft tissue. * 4/ - to OR for : Left lower extremity open reduction and internal fixation of distal tibial pilon fracture with close reduction of distal fibula fracture * Patient in a cast postop. Some episodes of anxiety. Some pain to left leg. No bowel movement for 4 days. Patient reporting to medical attending goes for a week to 10 days between bowel movements. On bowel regimen. * 4/5 pt w episodes of irrational, seems to have poor insight/processing. She does not agree w/ d/c plan she cannot return to [facility] due to increased care needs / seems to have poor insight. Psych consulted. Psychiatry notes that patient is alert and oriented 3 however she refused to participate in Mini-Mental status exam though he suspects underlying undiagnosed cognitive impairment likely secondary to her CVA. She is unable to give reason for hospitalization or express any understanding of conditions and prognosis, for the patient's own benefit feels she does not have decision-making capacity. He agrees with a surrogate or proxy decision maker for patient. Palliative care consulted to help clarify goals of treatment, identify approp decision maker. Pt seen in room, no visitors present. She is alert, oriented for the most part cooperative. At times becomes irritable, loud, when talking about she should be d/c home today or tomorrow and "they're only keeping her here because she has insurance money". She has some very limited insight to hospitalization. She knows she injured her ankle, had surgery. However, she also tells me she has broken her legs 4 times total in the past few yrs, which does not appear to be accurate. She tells me that she has lived at her [facility] for 1 month (appears she has been there longer, several years) and that she is not supposed to go back there bc of her broken ankle, but that she is in the process of negotiation with senior care manager to accept her back. She tells me if she doesn't go back there she will go home and resume living with her boyfriend in [place]. She does clearly have some residual aphasia as she often pauses to find words and at times is unable to articulate what she is trying to communicate. She has questions for case management RE in insurance would like to speak w them in the morning. Review of Systems ROS Limitations: Poor Historian Constitutional: COMPLAINS OF: Pain (+ LLE), DENIES: Fever, Change in appetite Eyes: DENIES: Vision loss Respiratory: DENIES: Cough, Sputum production, Shortness of breath Cardiovascular: DENIES: Chest pain, Dyspnea on Exertion, Lower Extremity Edema Gastrointestinal: DENIES: Abdominal pain, Constipation, Diarrhea, Nausea, Vomiting, Difficulty Swallowing Musculoskeletal: COMPLAINS OF: Joint pain (+ LLE) Neurologic: COMPLAINS OF: Speech Problems (+ 2/2 CVA), DENIES: Headache Psychiatric: DENIES: Anxiety, Confusion, Hallucinations Past Family Social History Coded Allergies: Amoxicillin (Verified Allergy, Unknown, 04/23/16) Clindamycin (Unverified Allergy, Unknown, 04/23/16) Past Medical History GERD Hypertension Hyperlipidemia CV disease CVA 2013 Anxiety, depression Past Surgical History Carotid endarterectomy Abdominal surgery Reported Medications Deltasone (Prednisone) 20 Mg Tab 40 Mg PO DAILY 5 Days Bactrim DS (Sulfamethoxazole-Trimethoprim) 800-160 Mg Tab 1 Tab PO BID 10 Days Keflex (Cephalexin) 500 Mg Cap 500 Mg PO Q6H 10 Days Ibuprofen 800 Mg Tab 800 Mg PO Q6HR PRN Gabapentin 100 Mg Cap 100 Mg PO TID Tramadol (Tramadol HCl) 50 Mg Tab 50 Mg PO TID PRN Ropinirole 3 Mg Tab 3 Mg PO TID Lisinopril 40 Mg Tab 40 Mg PO DAILY Hydrocodone-Acetaminophen 5-300 Mg Tab 1 Tab PO Q4H PRN Escitalopram (Escitalopram Oxalate) 10 Mg Tab 10 Mg PO DAILY Flexeril (Cyclobenzaprine HCl) 10 Mg Tab 10 Mg PO TID Clonidine (Clonidine HCl) 0.1 Mg Tab 0.1 Mg PO BID Atorvastatin (Atorvastatin Calcium) 10 Mg Tab 10 Mg PO HS Atenolol 100 Mg Tab 75 Mg PO TID Alprazolam 2 Mg Tab 2 Mg PO Q6H PRN Current Medications Medications (Trade) Dose Ordered Sig/Thais Route Start Time Stop Time Status Last Admin (NS 1000 ml Inj) 1,000 ml @ 50 mls/hr Q20H IV 02/26/17 18:30 02/26/17 18:38 (Tenormin) 75 mg TID PO 02/27/17 09:00 03/03/17 13:50 (Lipitor) 10 mg HS PO 02/26/17 22:30 03/02/17 21:40 (Catapres) 0.1 mg BID PO 02/27/17 09:00 03/03/17 08:39 (Flexeril) 10 mg TID PO 02/27/17 09:00 03/03/17 13:50 (Neurontin) 100 mg TID PO 02/27/17 09:00 03/03/17 13:50 (Requip) 3 mg TID PO 02/27/17 09:00 03/03/17 13:50 (Xanax) 2 mg Q6H PRN PO 02/26/17 23:00 03/03/17 14:48 Acetaminophen 650 mg 650 mg Q6H PRN PO 02/26/17 22:45 Lactated Ringer's 1,000 ml @ 0 mls/hr Q24H IV 02/27/17 01:15 (D5W-11/30 NS 1000 ml Inj) 1,000 ml @ 100 mls/hr Q10H IV 02/27/17 11:17 02/28/17 15:11 (NS Flush) 2 ml UNSCH PRN IV FLUSH 02/27/17 12:45 (NS Flush) 2 ml BID IV FLUSH 02/27/17 21:00 03/03/17 08:36 (Lovenox Inj) 40 mg Q24H SQ 02/28/17 11:00 03/09/17 11:01 03/03/17 13:50 Senna/Docusate Sodium 1 tab 1 tab BID PO 02/27/17 21:00 03/03/17 08:34 (Ancef Inj/NS Inj) 100 ml @ 200 mls/hr Q8H IV 02/27/17 18:00 03/01/17 03:22 Miscellaneous Information UNSCH PRN XX 02/27/17 11:30 ([place] 5-325 Mg) 1 tab Q4H PRN PO 02/27/17 11:30 02/27/17 19:27 ([place] 5-325 Mg) 2 tab Q6H PRN PO 02/27/17 11:30 03/03/17 14:48 (Zofran Inj) 4 mg Q4H PRN IVP 02/27/17 11:30 (Theragran M Tab) 1 tab DAILY PO 02/28/17 09:00 03/03/17 08:34 (Benadryl) 25 mg Q6H PRN PO 02/27/17 11:30 (Narcan Inj) 0.4 mg UNSCH PRN IV 02/27/17 11:30 (Morphine Inj) 2 mg Q3H PRN IV PUSH 02/27/17 11:30 02/28/17 20:30 (Lexapro) 10 mg DAILY PO 03/03/17 09:00 03/03/17 08:39 (Habitrol 21 Mg Patch.24 Hr) 1 patch DAILY T-DERMAL 03/02/17 14:45 03/03/17 08:35 Miscellaneous Information 1 HS T-DERMAL 03/02/17 21:00 (Milk Of Magnesia Liq) 30 ml DAILY PO 03/03/17 11:30 Family History Father at a young age of an [place], at age 50 Substance Use Tobacco: Smokes about 1 PPD since a teenager Alcohol: None Prescription med abuse: None Illicits: None . Psychosocial History Originally from [place]. Lived in [place] for many years. . Has one adult daughter who is currently incarcerated. She has 2 sisters whom she has not remained in contact with, one brother who she does remain in communication with. Also remains in communication with her mother. Most recently has lived in an [facility] setting for the past few years since CVA. Ethical and Legal Issues While patient is alert and oriented she does not seem to demonstrate reasonable insight or judgment and understanding of her medical conditions and options it appears this may have been ongoing she has documents from her residential facility dated 2014 in which her medical attending their Dr. Branham recommends decision-maker in place at that time the document indicates a judicially appointed guardian is pending and there is further notes of a proximal see designation through geriatric management provider. This names Hortensia Jaramillo as proxy. Decision-maker TBD Physical Exam Vital Signs Date Time Temp Pulse Resp B/P Pulse Ox O2 Delivery O2 Flow Rate FiO2 03/03/17 11:45 97.5 70 19 150/89 96 03/03/17 08:00 96.8 68 18 145/83 99 03/03/17 07:25 Room Air 03/03/17 04:15 97.6 72 17 143/98 100 03/02/17 19:55 98.4 67 15 156/97 96 03/02/17 16:00 98.2 66 15 121/85 98 03/02/17 15:37 97.7 70 19 144/92 99 03/02/17 03/03/17 19:00 07:00 Intake Total 240 ml 360 ml Balance 240 ml 360 ml Intake Oral 240 ml 360 ml # Voids 2 3 # Bowel Movements 1 0 Exam CONSTITUTIONAL/GENERAL: This is an adequately nourished patient, in no apparent distress. TUBES/LINES/DRAINS:PIV RUE SKIN: No jaundice, rashes, or lesions. No wounds seen anteriorly-- large cast/ dressing Left leg. Skin temperature appropriate. HEAD: Atraumatic. Normocephalic. EYES: Pupils equal and round and reactive. Extraocular motions intact. No scleral icterus. No injection or drainage. Fundi not examined. ENT: Nose without bleeding or purulent drainage. Throat without visible erythema, exudates, masses, or lesions. NECK: Trachea midline. Supple, nontender. CARDIOVASCULAR: Regular rate and rhythm without murmurs .Peripheral pulses symmetric-- unable to palp left pedal r/t cast- left toes warm/pink RESPIRATORY/CHEST: Symmetric, unlabored respirations. Clear to auscultation. Breath sounds equal bilaterally. No wheezes, rales, or rhonchi. GASTROINTESTINAL: Abdomen soft, non-tender, nondistended. No palpable masses. No guarding. Bowel sounds present. GENITOURINARY: Without palpable bladder distension. voids as needed MUSCULOSKELETAL: Extremities without clubbing, cyanosis, or edema. No joint tenderness or effusion noted.No mottling or clubbing. LYMPHATICS: No palpable cervical or supraclavicular adenopathy. NEUROLOGICAL: Awake and alert -oriented x 3. insight is poor. Follows commands. Moves all 4 extremities. PSYCHIATRIC: No obvious anxiety/depression. no apparent hallucinations or other psychotic thought process. . Diagnostic Tests Laboratory Laboratory Tests Test 03/01/17 03/01/17 05:56 13:20 Sodium Level 135 MEQ/L (136-145) Potassium Level 3.6 MEQ/L (3.5-5.1) Chloride Level 100 MEQ/L (98-107) Carbon Dioxide Level 28.1 MEQ/L (21.0-32.0) Anion Gap 7 MEQ/L (5-15) Blood Urea Nitrogen 7 MG/DL (7-18) Creatinine 0.70 MG/DL (0.50-1.00) Estimat Glomerular Filtration 87 ML/MIN (>89) Rate Random Glucose 91 MG/DL (74-106) Calcium Level 8.8 MG/DL (8.5-10.1) Nasal Screen MRSA (PCR) NEGATIVE (NEGATIVE) Result Diagram: 02/28/17 0606 03/01/17 0556 Imaging Last Impressions Ankle X-Ray 02/27/17 0000 Signed Impressions: Service Date/Time: Monday, February 27, 2017 10:56 - CONCLUSION: Anatomic alignment. Yoni Ferreira MD FACR Lower Extremity CT 02/26/17 0000 Signed Impressions: Service Date/Time: Sunday, February 26, 2017 17:39 - CONCLUSION: Fracture of the distal tibia and fibula as described above. Yoni Ferreira MD FACR Foot X-Ray 02/26/17 0000 Signed Impressions: Service Date/Time: Sunday, February 26, 2017 15:49 - CONCLUSION: 1. Fractures through the distal tibial and fibular metaphyses. 2. Possible linear, nondisplaced fracture through the lateral base of the distal phalanx of the first ray Gamal Artis MD Chest X-Ray 02/26/17 0000 Signed Impressions: Service Date/Time: Sunday, February 26, 2017 17:51 - CONCLUSION: 1. No acute cardiopulmonary disease. 2. Degenerative changes, scoliosis and multilevel compression deformities involving the thoracic and upper lumbar spine. 3. Degenerative changes involving the shoulders bilaterally (right worse than left). Donta Raya MD Patient/Family Conference Issues Discussed: -- Limited discussion with patient that she has poor insight and is a poor historian at times. Discussion included the following, will plan to discuss further when appropriate decision-maker is identified * Palliative care role, purpose, approach * Additional medical, psychosocial, history * Patients general health, functional status, and cognitive changes in the months leading up to the current hospitalization * Patient/family understanding of the current medical problems--she does not appear to have good understanding of her ORIF and its implications for recovery and the increased care she will need * Questions answered to the best of my ability * Palliative care contact information provided Assessment and Plan Disease Oriented Problem List: (1) Fracture of distal fibula Comment: s/p ORIF . (2) HTN (hypertension) (3) History of CVA (cerebrovascular accident) (4) Edema of left foot (5) Depression (6) Hyponatremia (7) Major neurocognitive disorder Symptom Scale: Pertinent Non-Medical Issues Psychosocial:Originally from [place]. Lived in [place] for many years. . Has one adult daughter who is currently incarcerated. She has 2 sisters whom she has not remained in contact with, one brother who she does remain in communication with. Also remains in communication with her mother. Most recently has lived in an [facility] setting for the past few years since CVA. Spiritual: Legal:While patient is alert and oriented she does not seem to demonstrate reasonable insight or judgment and understanding of her medical conditions and options it appears this may have been ongoing she has documents from her residential facility dated 2014 in which her medical attending their Dr. Branham recommends decision-maker in place at that time the document indicates a judicially appointed guardian is pending and there is further notes of a proximal see designation through geriatric management provider. This names Hortensia Jaramillo as proxy. Ethical issues impacting care: Important Contacts Hortensia Jaramillo ? proxy [phone] brother Velasquez [phone] ( # did not work 03/03/17) . Prognosis this pt was admitted for leg/foot pain, + findings of fx tibia, s/p ORIF. Stable , pending d/c to Rehab. Multiple chronic medical conditions, [facility] resident since CVA in 2013. Appears she can recover from current issues, though does remain at risk for ongoing issues secondary to new leg fx and immobility. . Code Status: Full Code Plan * Legal decision maker:While patient is alert and oriented she does not seem to demonstrate reasonable insight or judgment and understanding of her medical conditions and options. it appears this may have been ongoing she has documents from her residential facility dated 2014 in which her medical attending there Dr. Branham recommends decision-maker in place at that time the document indicates a judicially appointed guardian is pending and there is further notes of a proximal see designation through geriatric management provider. This names Hortensia Jaramillo as proxy. Pt also cites a brother, # per chart, I tried to reach him today and # did not work. Not clear at this time how pt arrived at appointed guardian as she reports to have 1 brother, 2 estranged sister, and a dtr in assisted. Not clear at this time how they arrived at an appointed gaurdian vs family serving as proxy. will cont to try to reach family/ proxy designated 2014 * Goals: TBD, pending ID of decision maker. * CODE STATUS: FULL * SYMPTOMS: --pain= acute, LLE s/p fall and ORIF --confusion= hx CVA, ? baseline mild impairment * Palliative care will continue to follow during hospital course as condition evolves, to assist patient/decision-maker with understanding of medical conditions, weighing benefits/burdens of treatment options, for clarification of goals of treatment. Additionally will assist with any symptoms of palliative concern Time Spent Total Floor Time (mins): 45 Thank you for the opportunity to participate in the care of Ms. Angel. Attestation To help prompt me to consider important information that might be impacting today's encounter and assessment, information from prior notes written by myself or my colleagues may have been "brought forward" into today's note. My signature on this note, however, is an attestation that I personally performed the exam, history, and/or decision-making noted today, and, unless otherwise indicated, the interactions with patient, family, and staff as well as the review of records all occurred today. I also attest that the listed assessment and stated plan reflect my best clinical judgment today based on the combination of historical information, prior notes, and today's exam/ interactions. When time spent is documented, it refers only to time spent today by the signer, or if indicated, combined time spent today by collaborating physician/nurse practitioner. Michelle Juarez Mar 03, 2017 16:26
[2017-03-03] MEDS: SODIUM CHLOR 0.9% 1000 ML INJ 1,000 ML IV SCH (18:30)
[2017-03-03 20:00] VITALS: BP 195/101; RESP 16; TEMP 98.2; O2SAT 99
[2017-03-03] MEDS: ATORVASTATIN 10 MG TAB PO SCH (20:29)
[2017-03-03] MEDS: REMOVE OLD PATCH T-DERMAL SCH (20:33)
[2017-03-03 20:35] VITALS: BP 170/98
[2017-03-03] MEDS: NICOTINE 21 MG/24 HR PATCH T-DERMAL PRN (22:10)
[2017-03-04] VITALS (7 sets, daily range): BP systolic 138–159; BP diastolic 85–95; PULSE 64–70; RESP 13–16; TEMP 95.9–97.7; O2SAT 95–99
[2017-03-04] MEDS: LACTATED RINGER'S 1000 ML INJ 1,000 ML IV SCH (00:08)
[2017-03-04] MEDS: DEXT 5%-NACL 0.45% 1000 ML INJ 1,000 ML IV SCH ×2 (01:17→09:24)
[2017-03-04] MEDS: ALPRAZolam 1 MG TAB PO PRN ×3 (04:24→16:58)
[2017-03-04] MEDS: ACETAMINOPHEN/HYDROcodone 325 MG/5 MG TAB PO PRN ×3 (04:26→16:58)
[2017-03-04] MEDS: MAGNESIUM HYDROXIDE SUSP 30 ML CUP PO SCH (09:00)
[2017-03-04] MEDS: SODIUM CHLORIDE 0.9% FLUSH 10 ML FLUSH IV FLUSH SCH ×2 (09:00→21:00)
[2017-03-04] MEDS: DOCUSATE SODIUM 50 MG/SENNA 8.6 MG TAB PO SCH ×2 (09:00→20:56)
[2017-03-04] MEDS ORDERED: REMOVE OLD PATCH T-DERMAL PRN (09:00)
[2017-03-04] MEDS: ATENOLOL 100 MG TAB PO SCH ×3 (09:00→16:59)
[2017-03-04] MEDS: ESCITALOPRAM OXALATE 10 MG TAB PO SCH (09:00)
[2017-03-04] MEDS: NICOTINE 21 MG/24 HR PATCH T-DERMAL SCH (09:11)
[2017-03-04] MEDS: GABAPENTIN 100 MG CAP PO SCH ×3 (09:11→17:00)
[2017-03-04] MEDS: cloNIDine HCL 0.1 MG TAB PO SCH ×2 (09:11→20:56)
[2017-03-04] MEDS: MULTIVITAMINS/MINERALS THERAPEUTIC TAB PO SCH (09:12)
[2017-03-04] MEDS: CYCLOBENZAPRINE HCL 10 MG TAB PO SCH ×3 (09:12→16:59)
[2017-03-04] MEDS: SODIUM CHLOR 0.9% 1000 ML INJ 1,000 ML IV SCH (09:24)
[2017-03-04] MEDS: ENOXAPARIN SODIUM 40 MG/0.4 ML SYRINGE SQ SCH (10:44)
--- NOTE | 2017-03-04 11:35 | HHI.PR ---
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 [facility] and boyfriend "Tyrone" will sweet pickle maker wants to talk to case management pain stable had BM no fever no cp no sob Review of Systems Constitutional Constitutional: Weakness Constitutional Remarks 12 point ROS limited GI/Abdomen GI/Abdominal Exam: Constipation Musculoskeletal MS: Weakness, Stiffness (recent fx), Swelling (left lower leg), Discomfort/Pain Integumentary Skin: Wounds Psychiatric Psychiatric: Agitation, Anxiety Vitals/Results Intake & Output 03/03/17 03/03/17 03/04/17 15:00 23:00 07:00 Intake Total 240 ml 240 ml 720 ml Output Total 3 ml Balance 237 ml 240 ml 720 ml Intake Oral 240 ml 240 ml 720 ml Output Urine Total 3 ml # Voids 1 3 # Bowel Movements 2 0 0 Vital Signs Vital Signs Date Time Temp Pulse Resp B/P Pulse Ox O2 Delivery O2 Flow Rate FiO2 03/04/17 08:00 97.2 70 16 159/88 99 03/04/17 04:15 97.7 69 16 142/89 95 03/04/17 00:20 96.3 64 16 158/89 95 03/03/17 20:35 170/98 03/03/17 20:00 98.2 16 195/101 99 03/03/17 18:53 Room Air 03/03/17 16:09 97.0 62 16 145/84 99 03/03/17 11:45 97.5 70 19 150/89 96 CBC/BMP: 02/28/17 0606 03/01/17 0556 Physical Exam General General Appearance: Well Nourished, No Acute Distress, Comfortable, Anxious Eyes Eye Exam: Pupils Equal, Pupils Reactive Ears & Nose Ears & Nose Exam: Nasal Mucosa [place] Throat Throat Exam: Oral Mucosa [place] & Moist Neck Neck Exam: Neck Supple, Trachea Midline Pulmonary Resp Exam: Breath Sounds Equal, Poor Inspiratory Effort (low volumes, smoker) Cardiology CV Exam: Regular Gastrointestinal/Abdomen GI Exam: Soft, Non-Tender, Bowel Sounds Present, Non-Distended Musculoskeletal MS Exam: Joints Intact MS Remarks left leg with dressing, splint intact Integumentary Skin Exam: Warm, Dry Extremeties Extremities Exam: Pedal Pulses Palpable, Trace Edema Neurologic Neuro Exam: Alert, Awake, Speech Clear, Irrigation Installation Specialist Equal VTE Prophylaxis VTE Prophylaxis Meds: Lovenox Assessment/Plan Problem List: (1) Fracture of distal end of left tibia (2) Edema of left foot (3) Edema of left ankle (4) Fracture of distal fibula (5) History of CVA (cerebrovascular accident) Plan: Questionable cognition for discharge planning and safety issues, possible history of TIAs. Psych consult today are his expert opinion on her cognition and assistance with her plan of care (6) Hyponatremia (7) Depression (8) HTN (hypertension) (9) Acute renal injury (10) Major neurocognitive disorder Assessment/Plan 67-year-old female who came to the emergency room complaining of left foot swelling and pain, questionable history of recent cellulitis. Denies any actual injury. Imaging studies completed, was noted with fracture of the distal tib and fib. Also positive for linear nondisplaced fracture to the lateral base of the distal phalanx of the first ray. Was evaluated by orthopedic surgeon S/P Left lower extremity open reduction and internal fixation of distal tibial pilon fracture with close reduction of distal fibula fracture 02/27 -Appreciate orthopedic input Continue with postoperative orthopedic care -Questionable history recent cellulitis, completed Ancef postoperatively -Pain management -Lovenox for DVT prophylaxis -Physical therapy per orthopedic recommendations Hyponatremia, etiology unclear-resolving sodium better Acute renal injury, possibly secondary to dehydration-improved Resolved Avoid nephrotoxic agent History of CVA -Continue home medication Hypertension, stable -Continue home medical Lipidemia, stable Continue with home medication Anxiety and depression Continue with home medication Cognitive deficits, possibly secondary to CVA which is decision making and subsequent placement. Patient refusing to go to SNF. Unable to go to [facility] due to not being able to meet her needs -appreciate psych input, pt. with poss. undiagnosed cognitive impairment most probably related with CVA highly suspected. Since the patient is unable to express the reason of her hospitalization, is unable to verbalize a clear understanding and appreciation of current medical problems, she has unrealistic expectations about her prognosis. Per psyche, she does not have decision- making capacity to participate in discharge planning at this moment. She can continue Lexapro 10 mg for depression. Agree 100% with the involvement of palliative care in this case to determining who will be the surrogated decision maker for the patient or health care by proxy. -Palliative care input appreciated, discussed with Michelle NEWELL. She was able to speak to patient's mother -[facility] evaluating pt. for poss. placement. Stable to discharge, placement pending continue to monitor D/W RN D/W Dr. Benítez D/W pt. D/W CM This patient was seen by myself and Dr. Benítez, this note is written his behalf Problem Qualifiers (1) Fracture of distal end of left tibia: Qualified Code: S82.302A - Closed fracture of distal end of left tibia, unspecified fracture morphology, initial encounter (2) Fracture of distal fibula: Qualified Code: S82.832A - Closed fracture of distal end of left fibula, unspecified fracture morphology, initial encounter (3) Depression: Qualified Code: F32.9 - Depression, unspecified depression type (4) HTN (hypertension): Qualified Code: I10 - Essential hypertension Mariaa Weeks Mar 04, 2017 11:35
--- NOTE | 2017-03-04 12:22 | HHI.HCPN ---
Reason for visit a. To assist with evaluation and management of symptoms including: pain b. To assist medical decision maker(s) with: better understanding of current medical conditions; weighing benefits/burdens of medical treatment options; making medical treatment decisions. Subjective/Interval History Pt seen to f/up on goals, pain, possible decision maker Pt stable, d/c to facility pending. D/w CM, medical attending REECE. Patient seen in room she is alert and for the most part oriented however insight is poor and she confuses details and fixates on things like going home and she feels that she can take care of herself independently at home (though she has not lived at home independently for some time now). She indicates that she is feeling well for the most part and just wants to go home. She feels that she will be able to take care of herself and she wants her boyfriend to come pick her up. She indicates that she is not having much pain currently, pain is well- controlled from the fracture. Call to patient mother, located her number in record from prior visit in 2014. Spoke with mother at length. Her mother indicates that she has been serving as a proxy for this patient. She indicates that the patient is to be at baseline mental status currently that she is for the most part oriented, "but is very stubborn" and at times has an affect that may not be quite right, even prior to her CVA. She indicates that the patient has required assistance for care since her CVA, and that she does have communications difficulties expressing herself since his CVA which further complicates her residential status. Patient mother informs that she comes to visit the patient every few months, was planning to come down next month to visit the patient. She is 82 however and does not a position to care for the patient herself. Review of general condition, injury prompting hospitalization, status post ORIF and overall prognosis. All questions answered, provided mother with my contact information. Advised the patient is expected to discharge soon pending appropriate placement. . Family/friend interactions *See above. . Advance Directives Advance Directive Specifics Health Care Surrogate(s): Mother has been serving as healthcare proxy. Objective Vital Signs Date Time Temp Pulse Resp B/P Pulse Ox O2 Delivery O2 Flow Rate FiO2 03/04/17 08:00 97.2 70 16 159/88 99 03/04/17 04:15 97.7 69 16 142/89 95 03/04/17 00:20 96.3 64 16 158/89 95 03/03/17 20:35 170/98 03/03/17 20:00 98.2 16 195/101 99 03/03/17 18:53 Room Air 03/03/17 16:09 97.0 62 16 145/84 99 Intake & Output 03/04/17 03/04/17 07:00 19:00 Intake Total 960 ml Balance 960 ml Intake Oral 960 ml # Voids 4 # Bowel Movements 0 Physical Exam CONSTITUTIONAL/GENERAL: This is an adequately nourished patient, in no apparent distress. TUBES/LINES/DRAINS:PIV RUE SKIN: No jaundice, rashes, or lesions. No wounds seen anteriorly-- large cast/ dressing Left leg. Skin temperature appropriate. HEAD: Atraumatic. Normocephalic. EYES: Pupils equal and round and reactive. Extraocular motions intact. No scleral icterus. No injection or drainage. Fundi not examined. ENT: Nose without bleeding or purulent drainage. Throat without visible erythema, exudates, masses, or lesions. NECK: Trachea midline. Supple, nontender. CARDIOVASCULAR: Regular rate and rhythm without murmurs .Peripheral pulses symmetric-- unable to palp left pedal r/t cast- left toes warm/pink RESPIRATORY/CHEST: Symmetric, unlabored respirations. Clear to auscultation. Breath sounds equal bilaterally. No wheezes, rales, or rhonchi. GASTROINTESTINAL: Abdomen soft, non-tender, nondistended. No palpable masses. No guarding. Bowel sounds present. GENITOURINARY: Without palpable bladder distension. voids as needed MUSCULOSKELETAL: Extremities without clubbing, cyanosis, or edema. No joint tenderness or effusion noted.No mottling or clubbing. LYMPHATICS: No palpable cervical or supraclavicular adenopathy. NEUROLOGICAL: Awake and alert -oriented x 3. insight is poor. Follows commands. Moves all 4 extremities. PSYCHIATRIC: No obvious anxiety/depression. no apparent hallucinations or other psychotic thought process. Diagnostic Tests Laboratory Laboratory Tests Test 03/01/17 13:20 Nasal Screen MRSA (PCR) NEGATIVE (NEGATIVE) Result Diagram: 02/28/17 0606 03/01/17 0556 Imaging Last Impressions Ankle X-Ray 02/27/17 0000 Signed Impressions: Service Date/Time: Monday, February 27, 2017 10:56 - CONCLUSION: Anatomic alignment. Yoni Ferreira MD FACR Lower Extremity CT 02/26/17 0000 Signed Impressions: Service Date/Time: Sunday, February 26, 2017 17:39 - CONCLUSION: Fracture of the distal tibia and fibula as described above. Yoni Ferreira MD FACR Foot X-Ray 02/26/17 0000 Signed Impressions: Service Date/Time: Sunday, February 26, 2017 15:49 - CONCLUSION: 1. Fractures through the distal tibial and fibular metaphyses. 2. Possible linear, nondisplaced fracture through the lateral base of the distal phalanx of the first ray Gamal Artis MD Chest X-Ray 02/26/17 0000 Signed Impressions: Service Date/Time: Sunday, February 26, 2017 17:51 - CONCLUSION: 1. No acute cardiopulmonary disease. 2. Degenerative changes, scoliosis and multilevel compression deformities involving the thoracic and upper lumbar spine. 3. Degenerative changes involving the shoulders bilaterally (right worse than left). Donta Raya MD Assessment and Plan Disease Oriented Problem List: (1) Fracture of distal fibula Comment: s/p ORIF . (2) HTN (hypertension) (3) History of CVA (cerebrovascular accident) (4) Edema of left foot (5) Depression (6) Hyponatremia (7) Major neurocognitive disorder Symptom Scale: (1) Pain 0-10 Scale: Unable to quantify Comment: LLE fx,s /p ORIF Pertinent Non-Medical Issues Psychosocial: Originally from [place]. Lived in [place] for many years. . Has one adult daughter who is currently incarcerated. She has 2 sisters whom she has not remained in contact with, one brother who she does remain in communication with. Also remains in communication with her mother. Most recently has lived in an [facility] setting for the past few years since CVA. Spiritual: Legal:While patient is alert and oriented she does not seem to demonstrate reasonable insight or judgment and understanding of her medical conditions and options it appears this may have been ongoing she has documents from her residential facility dated 2014 in which her medical attending their Dr. Branham recommends decision-maker in place at that time the document indicates a judicially appointed guardian is pending and there is further notes of a proximal see designation through geriatric management provider. This names Hortensia Jaramillo as proxy. Ethical issues impacting care: Important Contacts MOTHER /proxy - Larissa Cruz [phone] 03/04/17 [facility]am[facility] [phone] // [phone] Sister Katharina Montero (W) [phone] brother Velasquez [phone] ( # did not work 03/03/17) . Prognosis this pt was admitted for leg/foot pain, + findings of fx tibia, s/p ORIF. Stable , pending d/c to Rehab. Multiple chronic medical conditions, [facility] resident since CVA in 2013. Appears she can recover from current issues, though does remain at risk for ongoing issues secondary to new leg fx and immobility. . Code Status: Full Code Plan * Legal decision maker:While patient is alert and oriented she does not seem to demonstrate reasonable insight or judgment and understanding of her medical conditions and options. it appears this may have been ongoing she has documents from her residential facility dated 2014 in which her medical attending there Dr. Branham recommends decision-maker in place at that time the document indicates a judicially appointed guardian is pending and there is further notes of a proximal see designation through geriatric management provider. This names Hortensia Jaramillo as proxy. Pt also cites a brother, # per chart, I tried to reach him today and # did not work. Not clear at this time how pt arrived at appointed guardian as she reports to have 1 brother, 2 estranged sister, and a dtr in senior living. Not clear at this time how they arrived at an appointed gaurdian vs family serving as proxy. will cont to try to reach family/ proxy designated [id number]/04/17- spoke w mother Larissa Cruz (in [place]) who indicates she has been serving as proxy, pt daughter is in senior living in [facility] and has not been able to serve due to being in senior living. She informs that the "guardianship appointment" dated 2014 was a "mishap " from the facility at the time as pt was being "stubborn" and they could not locate family due to pt not providing information. Ms Cruz wishes to continue to serve as Janee's proxy. Called geriatric management at the number listed with proxy paperwork from 2014, I spoke with Christiane who indicates that the case was actually turned over to the patient's sister who was serving as a proxy when they relinquished their role. At this time it appears mother would be appropriate proxy if she is willing to serve as such based on statutes. * Goals: Aggressive, mother is supportive of getting patient back to the rehabilitation setting to regain whatever independence she is able to, and possibly resume [facility] living if able. She does not feel the patient would be safe to discharge home as she can no longer care for herself independently and her significant other has had housing issues in would not be able to properly care for her. * CODE STATUS: FULL * SYMPTOMS: --pajn= acute, LLE s/p fall and ORIF --confusion= hx CVA, ? baseline mild impairment //basal my conversation with the patient's mother patient appears to be at her baseline cognitive status for the past couple of years * Palliative care will continue to follow during hospital course as condition evolves, to assist patient/decision-maker with understanding of medical conditions, weighing benefits/burdens of treatment options, for clarification of goals of treatment. Additionally will assist with any symptoms of palliative concern Time Spent Total Floor Time (mins): 45 >50% Counseling/Coord of Care: Yes (time spent making phone calls to Guardian agency, patient mother, speaking with boiler operator helper as well as medical attending REECE camacho) Attestation To help prompt me to consider important information that might be impacting today's encounter and assessment, information from prior notes written by myself or my colleagues may have been "brought forward" into today's note. My signature on this note, however, is an attestation that I personally performed the exam, history, and/or decision-making noted today, and, unless otherwise indicated, the interactions with patient, family, and staff as well as the review of records all occurred today. I also attest that the listed assessment and stated plan reflect my best clinical judgment today based on the combination of historical information, prior notes, and today's exam/ interactions. When time spent is documented, it refers only to time spent today by the signer, or if indicated, combined time spent today by collaborating physician/nurse practitioner. Michelle Juarez Mar 04, 2017 12:22
[2017-03-04] MEDS: ATORVASTATIN 10 MG TAB PO SCH (20:56)
[2017-03-04] MEDS: REMOVE OLD PATCH T-DERMAL SCH (21:00)
[2017-03-05] VITALS (8 sets, daily range): BP systolic 136–172; BP diastolic 77–94; PULSE 65–73; RESP 16–20; TEMP 96.3–98.6; O2SAT 95–97
[2017-03-05] MEDS: ALPRAZolam 1 MG TAB PO PRN ×4 (00:01→18:20)
[2017-03-05] MEDS: ACETAMINOPHEN/HYDROcodone 325 MG/5 MG TAB PO PRN ×4 (00:02→18:19)
[2017-03-05] MEDS: LACTATED RINGER'S 1000 ML INJ 1,000 ML IV SCH ×2 (01:15→21:12)
[2017-03-05] MEDS: DEXT 5%-NACL 0.45% 1000 ML INJ 1,000 ML IV SCH ×3 (07:17→21:12)
[2017-03-05] MEDS: SODIUM CHLOR 0.9% 1000 ML INJ 1,000 ML IV SCH ×2 (07:20→21:12)
[2017-03-05] MEDS: SODIUM CHLORIDE 0.9% FLUSH 10 ML FLUSH IV FLUSH SCH ×2 (09:00→21:11)
[2017-03-05] MEDS: NICOTINE 21 MG/24 HR PATCH T-DERMAL SCH (09:37)
[2017-03-05] MEDS: GABAPENTIN 100 MG CAP PO SCH ×3 (09:37→17:18)
[2017-03-05] MEDS: CYCLOBENZAPRINE HCL 10 MG TAB PO SCH ×3 (09:37→17:18)
[2017-03-05] MEDS: MULTIVITAMINS/MINERALS THERAPEUTIC TAB PO SCH (09:37)
[2017-03-05] MEDS: ATENOLOL 100 MG TAB PO SCH ×3 (09:38→17:17)
[2017-03-05] MEDS: DOCUSATE SODIUM 50 MG/SENNA 8.6 MG TAB PO SCH ×2 (09:39→21:11)
[2017-03-05] MEDS: ESCITALOPRAM OXALATE 10 MG TAB PO SCH (09:39)
[2017-03-05] MEDS: cloNIDine HCL 0.1 MG TAB PO SCH ×2 (09:39→21:11)
[2017-03-05] MEDS: MAGNESIUM HYDROXIDE SUSP 30 ML CUP PO SCH ×2 (09:40→09:46)
--- NOTE | 2017-03-05 12:33 | HHI.PR ---
Subjective Subjective Remarks awake, oriented x 3 asking if she is going home today, wants to bead picker money at SNF and boyfriend "Tyrone" will bead picker wants to talk to case management pain stable had BM no fever no cp no sob (Mariaa Weeks) Review of Systems Constitutional Constitutional: Weakness Constitutional Remarks 12 point ROS limited (Mariaa Weeks) GI/Abdomen GI/Abdominal Exam: Constipation (Mariaa Weeks) Musculoskeletal MS: Weakness, Stiffness (recent fx), Swelling (left lower leg), Discomfort/Pain (Mariaa Weeks) Integumentary Skin: Wounds (Mariaa Weeks) Psychiatric Psychiatric: Agitation, Anxiety (Mariaa Weeks) Vitals/Results Intake & Output 03/04/17 03/04/17 03/05/17 15:00 23:00 07:00 Intake Total 840 ml 960 ml 960 ml Balance 840 ml 960 ml 960 ml Intake Oral 840 ml 960 ml 960 ml # Voids 2 2 4 # Bowel Movements 0 0 0 Vital Signs Vital Signs Date Time Temp Pulse Resp B/P Pulse Ox O2 Delivery O2 Flow Rate FiO2 03/05/17 09:49 Room Air 03/05/17 08:00 96.3 66 20 145/77 97 03/05/17 07:45 73 03/05/17 04:00 97.2 69 18 145/83 95 03/05/17 00:00 98.1 65 16 136/81 95 03/04/17 20:00 97.1 65 15 148/95 96 03/04/17 18:59 Room Air 03/04/17 18:01 16 03/04/17 15:13 70 03/04/17 14:00 95.9 65 13 150/89 96 (Mariaa Weeks) CBC/BMP: 03/01/17 0556 Physical Exam General General Appearance: Well Nourished, No Acute Distress, Comfortable, Anxious ( Mariaa Weeks) Eyes Eye Exam: Pupils Equal, Pupils Reactive (Mariaa Weeks) Ears & Nose Ears & Nose Exam: Nasal Mucosa Kechi (Mariaa Weeks) Throat Throat Exam: Oral Mucosa Kechi & Moist (Gross,Mariaa G. RUBBER MOULDING MACHINE OPERATOR) Neck Neck Exam: Neck Supple, Trachea Midline (Mariaa Weeks G. RUBBER MOULDING MACHINE OPERATOR) Pulmonary Resp Exam: Breath Sounds Equal, Poor Inspiratory Effort (low volumes, smoker) ( Mariaa Weeks G. RUBBER MOULDING MACHINE OPERATOR) Cardiology CV Exam: Regular (Mariaa Weeks G. RUBBER MOULDING MACHINE OPERATOR) Gastrointestinal/Abdomen GI Exam: Soft, Non-Tender, Bowel Sounds Present, Non-Distended (Mariaa Weeks G. RUBBER MOULDING MACHINE OPERATOR) Musculoskeletal MS Exam: Joints Intact MS Remarks left leg with dressing, splint intact (Mariaa Weeks. RUBBER MOULDING MACHINE OPERATOR) Integumentary Skin Exam: Warm, Dry (Mariaa Weeks G. RUBBER MOULDING MACHINE OPERATOR) Extremeties Extremities Exam: Pedal Pulses Palpable, Trace Edema (Mariaa Weeks. RUBBER MOULDING MACHINE OPERATOR) Neurologic Neuro Exam: Alert, Awake, Speech Clear, Executive Staff Assistant Equal (Mariaa Weeks G. RUBBER MOULDING MACHINE OPERATOR) VTE Prophylaxis VTE Prophylaxis Meds: Lovenox (Mariaa Weeks. RUBBER MOULDING MACHINE OPERATOR) Assessment/Plan Problem List: (1) Fracture of distal end of left tibia (2) Edema of left foot (3) Edema of left ankle (4) Fracture of distal fibula (5) History of CVA (cerebrovascular accident) Plan: Questionable cognition for discharge planning and safety issues, possible history of TIAs. Psych consult today are his expert opinion on her cognition and assistance with her plan of care (6) Hyponatremia (7) Depression (8) HTN (hypertension) (9) Acute renal injury (10) Major neurocognitive disorder Assessment/Plan 67-year-old female who came to the emergency room complaining of left foot swelling and pain, questionable history of recent cellulitis. Denies any actual injury. Imaging studies completed, was noted with fracture of the distal tib and fib. Also positive for linear nondisplaced fracture to the lateral base of the distal phalanx of the first ray. Was evaluated by orthopedic surgeon S/P Left lower extremity open reduction and internal fixation of distal tibial pilon fracture with close reduction of distal fibula fracture 02/27 -Appreciate orthopedic input Continue with postoperative orthopedic care -Questionable history recent cellulitis, completed Ancef postoperatively -Pain management -Lovenox for DVT prophylaxis -Physical therapy per orthopedic recommendations Hyponatremia, etiology unclear-resolving sodium better Acute renal injury, possibly secondary to dehydration-improved Resolved Avoid nephrotoxic agent History of CVA -Continue home medication Hypertension, stable -Continue home medical Lipidemia, stable Continue with home medication Anxiety and depression Continue with home medication Cognitive deficits, possibly secondary to CVA which is decision making and subsequent placement. Patient refusing to go to SNF. Unable to go to SNF due to not being able to meet her needs -appreciate psych input, pt. with poss. undiagnosed cognitive impairment most probably related with CVA highly suspected. Since the patient is unable to express the reason of her hospitalization, is unable to verbalize a clear understanding and appreciation of current medical problems, she has unrealistic expectations about her prognosis. Per psyche, she does not have decision- making capacity to participate in discharge planning at this moment. She can continue Lexapro 10 mg for depression. Agree 100% with the involvement of palliative care in this case to determining who will be the surrogated decision maker for the patient or health care by proxy. -Palliative care input appreciated, discussed with Michelle NEWELL. She was able to speak to patient's mother -[facility] evaluating pt. for poss. placement. Stable to discharge, placement pending continue to monitor D/W RN D/W Dr. Benítez D/W pt. D/W CM This patient was seen by myself and Dr. Benítez, this note is written his behalf ( Mariaa Weeks) Assessment/Plan patient seen and examined agree with above assessment and plan ok to d/c to SNF pending placement discussed with Mariaa NEWELL (Ursula Benítez MD) Problem Qualifiers (1) Fracture of distal end of left tibia: Qualified Code: S82.302A - Closed fracture of distal end of left tibia, unspecified fracture morphology, initial encounter (2) Fracture of distal fibula: Qualified Code: S82.832A - Closed fracture of distal end of left fibula, unspecified fracture morphology, initial encounter (3) Depression: Qualified Code: F32.9 - Depression, unspecified depression type (4) HTN (hypertension): Qualified Code: I10 - Essential hypertension Mariaa Weeks Mar 05, 2017 12:33 Ursula Benítez MD Mar 05, 2017 14:10
[2017-03-05] MEDS: ENOXAPARIN SODIUM 40 MG/0.4 ML SYRINGE SQ SCH (12:55)
--- NOTE | 2017-03-05 13:44 | HHI.DCPOC ---
Discharge Care Plan Diagnosis: (1) Edema of left ankle (2) Fracture of distal end of left tibia (3) Edema of left foot (4) Acute renal injury (5) History of CVA (cerebrovascular accident) (6) Major neurocognitive disorder Your Health Problems Are: Anxiety Difficulty with ADL Skin Breakdown Inflammation Swelling Leg Swelling Goals to Promote Your Health * To prevent worsening of your condition and complications * To maintain your health at the optimal level Directions to Meet Your Goals Take your medications as prescribed Follow your dietary instruction Follow activity as directed Keep your appointments as scheduled Take your immunizations and boosters as scheduled If your symptoms worsen call your PCP, if no PCP go to Urgent Care Center or Emergency Room Smoking is Dangerous to Your Health. Avoid second hand smoke Call the 24-hour hour crisis hotline for domestic abuse at Mariaa Weeks. [facility] Mar 05, 2017 13:44
--- NOTE | 2017-03-05 13:47 | HHI.DS ---
Discharge Summary Admission Date Feb 26, 2017 at 17:33 Discharge Date: Mar 05, 2017 Admitting Diagnosis distal tibial-fibular fracture (1) Fracture of distal fibula (2) Fracture of distal end of left tibia (3) Edema of left ankle (4) Major neurocognitive disorder (5) Pain (6) Edema of left foot (7) Acute renal injury (8) Hyponatremia (9) HTN (hypertension) (10) Cellulitis (11) Depression CBC/BMP: 03/01/17 0556 Imaging Last Impressions Ankle X-Ray 02/27/17 0000 Signed Impressions: Service Date/Time: Monday, February 27, 2017 10:56 - CONCLUSION: Anatomic alignment. Yoni Ferreira MD FACR Lower Extremity CT 02/26/17 0000 Signed Impressions: Service Date/Time: Sunday, February 26, 2017 17:39 - CONCLUSION: Fracture of the distal tibia and fibula as described above. Yoni Ferreira MD FACR Foot X-Ray 02/26/17 0000 Signed Impressions: Service Date/Time: Sunday, February 26, 2017 15:49 - CONCLUSION: 1. Fractures through the distal tibial and fibular metaphyses. 2. Possible linear, nondisplaced fracture through the lateral base of the distal phalanx of the first ray Gamal Artis MD Chest X-Ray 02/26/17 0000 Signed Impressions: Service Date/Time: Sunday, February 26, 2017 17:51 - CONCLUSION: 1. No acute cardiopulmonary disease. 2. Degenerative changes, scoliosis and multilevel compression deformities involving the thoracic and upper lumbar spine. 3. Degenerative changes involving the shoulders bilaterally (right worse than left). Donta Raya MD Hospital Course This is a pleasant 57 year old white female who noted some left foot swelling approximately a month ago. The patient doesn't recall any acute injury. She stated that she has seen her primary care physician on two different occasions and had been placed on Keflex, Bactrim and Lasix. The patient was positive for cellulitis and has been unable to bear weight for approximately one months. The patient stated that the pain and being unable to ambulate continued to worsen. Approximately a week ago the patient got up to go to the bathroom and was attempting to non-weight bear on left foot. She did stumble and fall back and states that she rolled unaware that she had injured the foot any further. The patient currently lives at [facility] and felt that she needed to be reevaluated again due to the increased swelling and inability to bear weight. The patient denied any chest pain, no shortness of breath, no headaches, no nausea, vomiting or diarrhea. She does have a positive history of constipation. She did note chronic pain and has been on hydrocodone for multiple years. The patient is a current tobacco user. Speech is noted to be slow but understandable, had previous CVA. Some problems with word finding. The patient states she had a carotid endarterectomy back several years ago and had complications afterwards but is unable to give anymore data than this. She states she cannot always remember what she needs to do. Pt. evaluated in the ED: LABORATORY DATA WBC 10.2, RBC 5.26, hemoglobin 15.7, hematocrit 46.4. Platelet count 281. Neutrophil count auto percentage 70.3. IMAGING STUDIES Chest x-ray is pending. Ankle x-ray shows a fracture of the distal tibia and fibula horizontal to the tibia plafond angulation. This was not present on the previous study done on 02/17/17. Foot x-ray - fractures again noted to the distal tibia and fibula metaphases possible linear, nondisplaced fracture through the lateral base of the distal phalange of the first x-ray. Pending is a lower extremity CT and a chest x-ray. Pt admitted for further evaluation and treatment: (1) Fracture of distal end of left tibia (2) Edema of left foot (3) Edema of left ankle (4) Fracture of distal fibula (5) History of CVA (cerebrovascular accident) (6) Hyponatremia (7) Depression (8) HTN (hypertension) (9) Acute renal injury (10) Major neurocognitive disorder During the course of the hospitalization, the following took place: 67-year-old female who came to the emergency room complaining of left foot swelling and pain, questionable history of recent cellulitis. Denies any actual injury. Imaging studies completed, was noted with fracture of the distal tib and fib. Also positive for linear nondisplaced fracture to the lateral base of the distal phalanx of the first ray. Was evaluated by orthopedic surgeon S/P Left lower extremity open reduction and internal fixation of distal tibial pilon fracture with close reduction of distal fibula fracture 02/27 -Appreciate orthopedic input Continued with postoperative orthopedic care -Questionable history recent cellulitis, completed Ancef postoperatively. Tolerated well, no fever. -Pain management ordered -Lovenox for DVT prophylaxis -Physical therapy per orthopedic recommendations Hyponatremia, etiology resolved Acute renal injury, possibly secondary to dehydration-improved after IV fluids -Given IV fluids Avoided nephrotoxic agent History of CVA -Continued home medication -Patient had underlying cognitive deficit Hypertension, stable -Continue home medical Lipidemia, stable Continue with home medication Anxiety and depression Continue with home medication CM consulted for discharge planning. Ortho cleared for discharged. Patient was clinically stable for discharge. Patient was unable to return to assisted living facility due to her needs.Discharge was delayed as patient initially refused discharge planning process. She had difficulty understanding why she needed to go to snf, wanted to go with boyfriend. Palliative care and Psych consulted. Appreciated palliative care and psych input. Per psychiatry-- pt. with poss. undiagnosed cognitive impairment most probably related with CVA highly suspected. Since the patient is unable to express the reason of her hospitalization, is unable to verbalize a clear understanding and appreciation of current medical problems, she has unrealistic expectations about her prognosis. Per psyche, she does not have decision-making capacity to participate in discharge planning at this moment. She can continue Lexapro 10 mg for depression. Agree 100% with the involvement of palliative care in this case to determining who will be the surrogated decision maker for the patient or health care by proxy. Palliative care input appreciated, discussed with Michelle NEWELL. She was able to speak to patient's mother who is the proxy. Mother agreed to patient needed to go to SNF. Case management continue to work to find suitable placement to rehabilitation facility Patient was discharge in stable condition to rehabilitation facility Instructions given for patient to follow-up with orthopedic in 2 weeks Diet heart healthy Activity per orthopedic orders Pt Condition on Discharge: Stable Discharge Disposition: Discharge to SNF Discharge Instructions DIET: Follow Instructions for: Heart Healthy Diet Activities you can perform: See Additionl Instruction Other Activity Instructions: PER ORTHO Follow up Referrals: Orthopedics - 2 Weeks with Jean-Claude Prado MD PCP Follow-up New Medications: Aspirin (Aspirin) 325 Mg Tab 325 MG PO DAILY Start Aspirin after Lovenox is completed. Prevent Blood Clot # 30 Ref 0 TAB Enoxaparin Inj (Lovenox Inj) 40 Mg/0.4 Ml Syr 40 MG SQ DAILY Start Aspirin after Lovenox is completed. Blood Clot Prevention # 10 Ref 0 SYRINGE Hydrocodone-Acetaminophen ([place]) 5-325 mg Tab 1-2 TAB PO Q4H PRN PAIN #60 Ref 0 TAB Continued Medications: Atenolol (Atenolol) 100 Mg Tab 75 MG PO TID Blood Pressure Management #60 Ref 0 TAB Atorvastatin (Atorvastatin) 10 Mg Tab 10 MG PO HS Cholesterol Management #30 Ref 0 TAB Clonidine (Clonidine) 0.1 Mg Tab 0.1 MG PO BID Blood Pressure Management #60 Ref 0 TAB Cyclobenzaprine (Flexeril) 10 Mg Tab 10 MG PO TID Muscle Spasm #90 Ref 0 TAB Escitalopram (Escitalopram) 10 Mg Tab 10 MG PO DAILY #30 Ref 0 TAB Gabapentin (Gabapentin) 100 Mg Cap 100 MG PO TID #90 Ref 0 CAP Ibuprofen (Ibuprofen) 800 Mg Tab 800 MG PO Q6HR PRN PAIN #30 Ref 0 TAB Lisinopril (Lisinopril) 40 Mg Tab 40 MG PO DAILY Blood Pressure Management #30 Ref 0 TAB Ropinirole (Ropinirole) 3 Mg Tab 3 MG PO TID #90 Ref 0 TAB Discontinued Medications: Alprazolam (Alprazolam) 2 Mg Tab 2 MG PO Q6H PRN ANXIETY TAB Cephalexin (Keflex) 500 Mg Cap 500 MG PO Q6H Infection Days 10 Ref 0 CAP Hydrocodone-Acetaminophen (Hydrocodone-Acetaminophen) 5-300 Mg Tab 1 TAB PO Q4H PRN PAIN Ref 0 TAB Prednisone (Deltasone) 20 Mg Tab 40 MG PO DAILY Days 5 Ref 0 TAB Sulfamethoxazole-Trimethoprim (Bactrim DS) 800-160 Mg Tab 1 TAB PO BID Infection Days 10 Ref 0 TAB Tramadol (Tramadol) 50 Mg Tab 50 MG PO TID PRN PAIN Ref 0 TAB Mariaa Weeks Mar 05, 2017 13:47
[2017-03-05] MEDS: REMOVE OLD PATCH T-DERMAL SCH (21:00)
[2017-03-05] MEDS: ATORVASTATIN 10 MG TAB PO SCH (21:11)
[2017-03-06] VITALS: BP 137/83; PULSE 55; RESP 20; TEMP 98.1; O2SAT 95
[2017-03-06] MEDS: ACETAMINOPHEN/HYDROcodone 325 MG/5 MG TAB PO PRN ×4 (02:16→22:58)
[2017-03-06] MEDS: ALPRAZolam 1 MG TAB PO PRN ×3 (02:16→17:58)
[2017-03-06 07:17] VITALS: BP 138/84; PULSE 74; RESP 18; TEMP 97.8; O2SAT 96
[2017-03-06] MEDS: SODIUM CHLORIDE 0.9% FLUSH 10 ML FLUSH IV FLUSH SCH ×2 (08:22→21:19)
[2017-03-06] MEDS: MULTIVITAMINS/MINERALS THERAPEUTIC TAB PO SCH (08:22)
[2017-03-06] MEDS: MAGNESIUM HYDROXIDE SUSP 30 ML CUP PO SCH (08:24)
[2017-03-06] MEDS: ATENOLOL 100 MG TAB PO SCH ×3 (08:25→16:57)
[2017-03-06] MEDS: GABAPENTIN 100 MG CAP PO SCH ×3 (08:25→16:56)
[2017-03-06] MEDS: CYCLOBENZAPRINE HCL 10 MG TAB PO SCH ×3 (08:25→16:56)
[2017-03-06] MEDS: DOCUSATE SODIUM 50 MG/SENNA 8.6 MG TAB PO SCH ×2 (08:26→21:18)
[2017-03-06] MEDS: cloNIDine HCL 0.1 MG TAB PO SCH ×2 (08:26→21:18)
[2017-03-06] MEDS: ESCITALOPRAM OXALATE 10 MG TAB PO SCH (08:26)
[2017-03-06] MEDS: NICOTINE 21 MG/24 HR PATCH T-DERMAL SCH (08:27)
[2017-03-06 11:54] VITALS: BP 132/83; PULSE 67; RESP 18; TEMP 97.1; O2SAT 96
[2017-03-06] MEDS: ENOXAPARIN SODIUM 40 MG/0.4 ML SYRINGE SQ SCH (12:32)
--- NOTE | 2017-03-06 13:16 | HHI.PR ---
Subjective Interval History patient seen and examined appears comfortable Review of Systems Constitutional Constitutional: Weakness GI/Abdomen GI/Abdominal Exam: Constipation Musculoskeletal MS: Weakness, Stiffness (recent fx), Swelling (left lower leg), Discomfort/Pain Integumentary Skin: Wounds Psychiatric Psychiatric: Agitation, Anxiety Vitals/Results Intake & Output 03/05/17 03/05/17 03/06/17 15:00 23:00 07:00 Intake Total 960 ml 780 ml 780 ml Balance 960 ml 780 ml 780 ml Intake Oral 960 ml 780 ml 780 ml # Voids 3 3 2 # Bowel Movements 0 0 0 Vital Signs Vital Signs Date Time Temp Pulse Resp B/P Pulse Ox O2 Delivery O2 Flow Rate FiO2 03/06/17 11:54 97.1 67 18 132/83 96 03/06/17 07:17 97.8 74 18 138/84 96 03/06/17 00:00 98.1 55 20 137/83 95 03/05/17 21:08 67 03/05/17 20:27 97.4 68 20 172/94 96 03/05/17 20:27 97.4 68 20 172/94 96 03/05/17 16:45 98.5 72 20 170/88 96 Physical Exam General General Appearance: Well Nourished, No Acute Distress, Comfortable, Anxious Eyes Eye Exam: Pupils Equal, Pupils Reactive Ears & Nose Ears & Nose Exam: Nasal Mucosa [place] Throat Throat Exam: Oral Mucosa [place] & Moist Neck Neck Exam: Neck Supple, Trachea Midline Pulmonary Resp Exam: Breath Sounds Equal, Poor Inspiratory Effort (low volumes, smoker) Cardiology CV Exam: Regular Gastrointestinal/Abdomen GI Exam: Soft, Non-Tender, Bowel Sounds Present, Non-Distended Musculoskeletal MS Exam: Joints Intact Integumentary Skin Exam: Warm, Dry Extremeties Extremities Exam: Pedal Pulses Palpable, Trace Edema Neurologic Neuro Exam: Alert, Awake, Speech Clear, Drive Man Equal VTE Prophylaxis VTE Prophylaxis Meds: Lovenox Assessment/Plan Problem List: (1) Fracture of distal end of left tibia (2) Edema of left foot (3) Edema of left ankle (4) Fracture of distal fibula (5) History of CVA (cerebrovascular accident) Plan: Questionable cognition for discharge planning and safety issues, possible history of TIAs. Psych consult today are his expert opinion on her cognition and assistance with her plan of care (6) Hyponatremia (7) Depression (8) HTN (hypertension) (9) Acute renal injury (10) Major neurocognitive disorder Assessment/Plan Assessment/Plan 67-year-old female who came to the emergency room complaining of left foot swelling and pain, questionable history of recent cellulitis. Denies any actual injury. Imaging studies completed, was noted with fracture of the distal tib and fib. Also positive for linear nondisplaced fracture to the lateral base of the distal phalanx of the first ray. Was evaluated by orthopedic surgeon S/P Left lower extremity open reduction and internal fixation of distal tibial pilon fracture with close reduction of distal fibula fracture 02/27 -Appreciate orthopedic input Continue with postoperative orthopedic care -Questionable history recent cellulitis, completed Ancef postoperatively -Pain management -Lovenox for DVT prophylaxis -Physical therapy per orthopedic recommendations Hyponatremia, etiology unclear-resolving sodium better Acute renal injury, possibly secondary to dehydration-improved Resolved Avoid nephrotoxic agent History of CVA -Continue home medication Hypertension, stable -Continue home medical Lipidemia, stable Continue with home medication Anxiety and depression Continue with home medication Cognitive deficits, possibly secondary to CVA which is decision making and subsequent placement. Patient refusing to go to SNF. Unable to go to [facility] due to not being able to meet her needs -appreciate psych input, pt. with poss. undiagnosed cognitive impairment most probably related with CVA highly suspected. Per psyche, she does not have decision-making capacity to participate in discharge planning at this moment. She can continue Lexapro 10 mg for depression. -Palliative care input appreciated, discussed with Michelle NEWELL. She was able to speak to patient's mother Stable to discharge, placement pending continue to monitor Problem Qualifiers (1) Fracture of distal end of left tibia: Qualified Code: S82.302A - Closed fracture of distal end of left tibia, unspecified fracture morphology, initial encounter (2) Fracture of distal fibula: Qualified Code: S82.832A - Closed fracture of distal end of left fibula, unspecified fracture morphology, initial encounter (3) Depression: Qualified Code: F32.9 - Depression, unspecified depression type (4) HTN (hypertension): Qualified Code: I10 - Essential hypertension Ursula Benítez MD Mar 06, 2017 13:16
[2017-03-06] MEDS: DEXT 5%-NACL 0.45% 1000 ML INJ 1,000 ML IV SCH (13:17)
[2017-03-06 15:55] VITALS: BP 141/89; PULSE 68; RESP 18; TEMP 97.9; O2SAT 97
[2017-03-06 20:00] VITALS: BP 144/85; PULSE 72; RESP 18; TEMP 97.6; O2SAT 94
[2017-03-06] MEDS: REMOVE OLD PATCH T-DERMAL SCH (21:00)
[2017-03-06] MEDS: ATORVASTATIN 10 MG TAB PO SCH (21:18)
[2017-03-07] VITALS: BP 126/79; PULSE 70; RESP 22; TEMP 96.9; O2SAT 99
[2017-03-07] MEDS: ALPRAZolam 1 MG TAB PO PRN ×3 (00:01→19:32)
[2017-03-07] MEDS: LACTATED RINGER'S 1000 ML INJ 1,000 ML IV SCH (01:15)
[2017-03-07] MEDS: SODIUM CHLOR 0.9% 1000 ML INJ 1,000 ML IV SCH (02:30)
[2017-03-07 04:00] VITALS: BP 118/71; PULSE 71; RESP 24; TEMP 97.2; O2SAT 98
[2017-03-07] MEDS: ACETAMINOPHEN/HYDROcodone 325 MG/5 MG TAB PO PRN ×3 (05:10→17:45)
[2017-03-07 07:05] VITALS: BP 138/89; PULSE 69; RESP 18; TEMP 97; O2SAT 96
[2017-03-07] MEDS: MAGNESIUM HYDROXIDE SUSP 30 ML CUP PO SCH (09:00)
[2017-03-07] MEDS: SODIUM CHLORIDE 0.9% FLUSH 10 ML FLUSH IV FLUSH SCH ×2 (09:00→21:47)
[2017-03-07] MEDS: cloNIDine HCL 0.1 MG TAB PO SCH ×2 (09:10→21:46)
[2017-03-07] MEDS: NICOTINE 21 MG/24 HR PATCH T-DERMAL SCH (09:10)
[2017-03-07] MEDS: MULTIVITAMINS/MINERALS THERAPEUTIC TAB PO SCH (09:11)
[2017-03-07] MEDS: GABAPENTIN 100 MG CAP PO SCH ×3 (09:11→17:45)
[2017-03-07] MEDS: ESCITALOPRAM OXALATE 10 MG TAB PO SCH (09:11)
[2017-03-07] MEDS: DOCUSATE SODIUM 50 MG/SENNA 8.6 MG TAB PO SCH ×2 (09:11→21:46)
[2017-03-07] MEDS: CYCLOBENZAPRINE HCL 10 MG TAB PO SCH ×3 (09:11→17:45)
[2017-03-07] MEDS: ATENOLOL 100 MG TAB PO SCH ×3 (09:11→17:45)
[2017-03-07] MEDS: DEXT 5%-NACL 0.45% 1000 ML INJ 1,000 ML IV SCH ×2 (09:17→19:17)
[2017-03-07 11:06] VITALS: BP 132/66; PULSE 70; RESP 18; TEMP 96.9; O2SAT 96
[2017-03-07] MEDS: ENOXAPARIN SODIUM 40 MG/0.4 ML SYRINGE SQ SCH (11:35)
--- NOTE | 2017-03-07 11:35 | HHI.PR ---
Subjective Subjective Remarks Resting in bed Alert, cooperative Talkative Left lower leg elevated on pillows Nonweightbearing, left leg (Mary Adkins) Review of Systems Constitutional Constitutional: Weakness Constitutional Remarks 10 point ROS done. Positive noted, pain management, NWB lt. leg, questionable mentation current situation, see positive notes other systems unremarkable. ( Mary Adkins) GI/Abdomen GI/Abdominal Exam: Constipation GI/Abdomen Remarks denies per her personal OP schedule . No BM 4 days. usually goes for a week - 10 days,. Bowel regimin on board. (Mary Adkins) Musculoskeletal MS: Weakness, Stiffness (recent fx), Swelling (left lower leg), Discomfort/Pain (Mary Adkins) Integumentary Skin: Wounds Skin Remarks lt. leg cast on, no upper leg edema (Mary Adkins) Neurologic Neurologic Remarks Anxious, questionable mentation and orientation to current situation (Mary Adkins) Psychiatric Psychiatric: Agitation, Anxiety (Mary Adkins) Vitals/Results Intake & Output 03/06/17 03/06/17 03/07/17 15:00 23:00 07:00 Intake Total 960 ml 780 ml Balance 960 ml 780 ml Intake Oral 960 ml 780 ml # Voids 4 4 # Bowel Movements 0 1 0 Vital Signs Vital Signs Date Time Temp Pulse Resp B/P Pulse Ox O2 Delivery O2 Flow Rate FiO2 03/07/17 07:05 97.0 69 18 138/89 96 03/07/17 04:00 97.2 71 24 118/71 98 03/07/17 00:00 96.9 70 22 126/79 99 03/06/17 21:25 Room Air 03/06/17 20:00 97.6 72 18 144/85 94 03/06/17 15:55 97.9 68 18 141/89 97 03/06/17 11:54 97.1 67 18 132/83 96 (Mary Adkins) Imaging Remarks Last Impressions Ankle X-Ray 02/27/17 0000 Signed Impressions: Service Date/Time: Monday, February 27, 2017 10:56 - CONCLUSION: Anatomic alignment. Yoni Ferreira MD FACR Lower Extremity CT 02/26/17 0000 Signed Impressions: Service Date/Time: Sunday, February 26, 2017 17:39 - CONCLUSION: Fracture of the distal tibia and fibula as described above. Yoni Ferreira MD FACR Foot X-Ray 02/26/17 0000 Signed Impressions: Service Date/Time: Sunday, February 26, 2017 15:49 - CONCLUSION: 1. Fractures through the distal tibial and fibular metaphyses. 2. Possible linear, nondisplaced fracture through the lateral base of the distal phalanx of the first ray Gamal Artis MD Chest X-Ray 02/26/17 0000 Signed Impressions: Service Date/Time: Sunday, February 26, 2017 17:51 - CONCLUSION: 1. No acute cardiopulmonary disease. 2. Degenerative changes, scoliosis and multilevel compression deformities involving the thoracic and upper lumbar spine. 3. Degenerative changes involving the shoulders bilaterally (right worse than left). Donta Raya MD ([place],Mary M. BUSINESS SERVICES REPRESENTATIVE) Physical Exam General General Appearance: Well Nourished, No Acute Distress, Comfortable, Anxious ( [place],Mary M. BUSINESS SERVICES REPRESENTATIVE) Eyes Eye Exam: Pupils Equal, Pupils Reactive (Lacona,Mary M. BUSINESS SERVICES REPRESENTATIVE) Ears & Nose Ears & Nose Exam: Nasal Mucosa [place] (Jed,Mary M. BUSINESS SERVICES REPRESENTATIVE) Throat Throat Exam: Oral Mucosa [place] & Moist (Jed,Mary M. BUSINESS SERVICES REPRESENTATIVE) Neck Neck Exam: Neck Supple, Trachea Midline (Jed,Mary M. BUSINESS SERVICES REPRESENTATIVE) Pulmonary Resp Exam: Breath Sounds Equal, Poor Inspiratory Effort (low volumes, smoker) ( Jed,Mary M. BUSINESS SERVICES REPRESENTATIVE) Cardiology CV Exam: Regular (Lacona,Mary M. BUSINESS SERVICES REPRESENTATIVE) Gastrointestinal/Abdomen GI Exam: Soft, Non-Tender, Bowel Sounds Present, Non-Distended (Jed,Mary M. BUSINESS SERVICES REPRESENTATIVE) Musculoskeletal MS Exam: Joints Intact MS Remarks lt. leg cast, elevated NWB, LL (Lacona,Mary M. BUSINESS SERVICES REPRESENTATIVE) Integumentary Skin Exam: Warm, Dry (Lacona,Mary M. BUSINESS SERVICES REPRESENTATIVE) Extremeties Extremities Exam: No Edema, Pedal Pulses Palpable, Trace Edema (L[place],Mary M. BUSINESS SERVICES REPRESENTATIVE) Neurologic Neuro Exam: Alert, Awake, Speech Clear, Resident Care Spec Equal (Mary Adkins) VTE Prophylaxis VTE Prophylaxis Meds: Lovenox (Mary Adkins) Assessment/Plan Problem List: (1) Fracture of distal end of left tibia (2) Edema of left foot (3) Edema of left ankle (4) Fracture of distal fibula (5) History of CVA (cerebrovascular accident) (6) Hyponatremia (7) Depression (8) HTN (hypertension) (9) Acute renal injury (10) Major neurocognitive disorder Assessment/Plan S/P Left lower extremity open reduction and internal fixation of distal tibial pilon fracture with close reduction of distal fibula fracture 02/27 -Appreciate orthopedic , Ortho postoperative care, nonweightbearing left leg S/P Left lower extremity open reduction and internal fixation of distal tibial pilon fracture with close reduction of distal fibula fracture 02/27 Pain management -Lovenox for DVT prophylaxis -Physical therapy per orthopedic recommendations bowel regimen History of CVA, possible cognitive deficits related to CVA -Continue home medication, medical management Patient's mother is her acting spokesperson, plan is for rehabilitation, not home for now Anxiety and depression Continue with home medication, medical management and currently patient shows no sign of anxiety Discharge planning, SNF rehab, pending placement. Case management on board, working through plan of care or her discharge Discussed with Dr. Benítez, seen on her behalf Discussed with case management (Mary Adkins) Assessment/Plan patient seen and examined continue current care awaiting placement medically cleared for discharge discussed with Mary NEWELL (Ursula Benítez MD) Problem Qualifiers (1) Fracture of distal end of left tibia: Qualified Code: S82.302A - Closed fracture of distal end of left tibia, unspecified fracture morphology, initial encounter (2) Fracture of distal fibula: Qualified Code: S82.832A - Closed fracture of distal end of left fibula, unspecified fracture morphology, initial encounter (3) Depression: Qualified Code: F32.9 - Depression, unspecified depression type (4) HTN (hypertension): Qualified Code: I10 - Essential hypertension Mary Adkins Mar 07, 2017 11:35 Ursula Benítez MD Mar 07, 2017 13:32 unspecified fracture morphology, initial encounter (3) Depression: Qualified Code: F32.9 - Depression, unspecified depression type (4) HTN (hypertension): Qualified Code: I10 - Essential hypertension Mary Adkins Mar 07, 2017 11:35
[2017-03-07 15:05] VITALS: BP 127/69; PULSE 69; RESP 18; TEMP 96.4; O2SAT 96
[2017-03-07 20:55] VITALS: BP 136/78; PULSE 67; RESP 17; TEMP 96.8; O2SAT 96
[2017-03-07] MEDS: REMOVE OLD PATCH T-DERMAL SCH ×2 (21:00→21:55)
[2017-03-07] MEDS: ATORVASTATIN 10 MG TAB PO SCH (21:46)
[2017-03-07] MEDS: NICOTINE 21 MG/24 HR PATCH T-DERMAL PRN (21:54)
[2017-03-08] MEDS: ACETAMINOPHEN/HYDROcodone 325 MG/5 MG TAB PO PRN ×4 (00:27→18:29)
[2017-03-08 00:43] VITALS: BP 114/70; PULSE 68; RESP 16; TEMP 96.5; O2SAT 96
[2017-03-08] MEDS: ALPRAZolam 1 MG TAB PO PRN ×4 (01:33→20:13)
[2017-03-08] MEDS: CYCLOBENZAPRINE HCL 10 MG TAB PO SCH ×3 (07:47→17:27)
[2017-03-08] MEDS: cloNIDine HCL 0.1 MG TAB PO SCH ×2 (07:47→20:14)
[2017-03-08] MEDS: GABAPENTIN 100 MG CAP PO SCH ×3 (07:48→17:27)
[2017-03-08] MEDS: ATENOLOL 100 MG TAB PO SCH ×3 (07:48→17:27)
[2017-03-08] MEDS: DOCUSATE SODIUM 50 MG/SENNA 8.6 MG TAB PO SCH ×2 (07:48→20:14)
[2017-03-08] MEDS: MULTIVITAMINS/MINERALS THERAPEUTIC TAB PO SCH (07:48)
[2017-03-08] MEDS: ESCITALOPRAM OXALATE 10 MG TAB PO SCH (07:48)
[2017-03-08] MEDS: NICOTINE 21 MG/24 HR PATCH T-DERMAL SCH (07:51)
[2017-03-08] MEDS: REMOVE OLD PATCH T-DERMAL SCH (07:51)
[2017-03-08 08:00] VITALS: BP 117/79; PULSE 70; RESP 20; TEMP 97.2; O2SAT 96
[2017-03-08] MEDS: MAGNESIUM HYDROXIDE SUSP 30 ML CUP PO SCH (09:00)
[2017-03-08] MEDS: SODIUM CHLORIDE 0.9% FLUSH 10 ML FLUSH IV FLUSH SCH ×2 (09:00→20:13)
[2017-03-08 12:00] VITALS: BP 124/76; PULSE 72; RESP 18; TEMP 98.1; O2SAT 98
--- NOTE | 2017-03-08 12:18 | HHI.PR ---
Subjective Subjective Remarks Resting in bed Alert, cooperative Talkative Left lower leg elevated on pillows, up in chair Nonweightbearing, left leg per ortho (Mary Adkins) Review of Systems Constitutional Constitutional: Weakness Constitutional Remarks 10 point ROS done. Positive noted, pain management, nonweightbearing left leg, other systems unremarkable. (Mary Adkins) GI/Abdomen GI/Abdominal Exam: Constipation GI/Abdomen Remarks Bowel regimin on board. (Mary Adkins) Musculoskeletal MS: Weakness, Stiffness (recent fx), Swelling (left lower leg), Discomfort/Pain (Mary Adkins) Integumentary Skin: Wounds Skin Remarks lt. leg cast on, no upper leg edema (Mary Adkins) Neurologic Neurologic Remarks Anxious, questionable mentation and orientation to current situation (Mary Adkins) Psychiatric Psychiatric: Agitation, Anxiety (Mary Adkins) Vitals/Results Intake & Output 03/07/17 03/07/17 03/08/17 15:00 23:00 07:00 Intake Total 960 ml 360 ml 240 ml Balance 960 ml 360 ml 240 ml Intake Oral 960 ml 360 ml 240 ml # Voids 3 3 3 # Bowel Movements 0 1 2 Vital Signs Vital Signs Date Time Temp Pulse Resp B/P Pulse Ox O2 Delivery O2 Flow Rate FiO2 03/08/17 08:00 97.2 70 20 117/79 96 03/08/17 00:43 96.5 68 16 114/70 96 03/07/17 20:55 96.8 67 17 136/78 96 03/07/17 18:59 Room Air 03/07/17 15:05 96.4 69 18 127/69 96 (Mary Adkins) Imaging Remarks Last Impressions Ankle X-Ray 02/27/17 0000 Signed Impressions: Service Date/Time: Monday, February 27, 2017 10:56 - CONCLUSION: Anatomic alignment. Yoni Ferreira MD FACR Lower Extremity CT 02/26/17 0000 Signed Impressions: Service Date/Time: Sunday, February 26, 2017 17:39 - CONCLUSION: Fracture of the distal tibia and fibula as described above. Yoni Ferreira MD FACR Foot X-Ray 02/26/17 0000 Signed Impressions: Service Date/Time: Sunday, February 26, 2017 15:49 - CONCLUSION: 1. Fractures through the distal tibial and fibular metaphyses. 2. Possible linear, nondisplaced fracture through the lateral base of the distal phalanx of the first ray Gamal Artis MD Chest X-Ray 02/26/17 0000 Signed Impressions: Service Date/Time: Sunday, February 26, 2017 17:51 - CONCLUSION: 1. No acute cardiopulmonary disease. 2. Degenerative changes, scoliosis and multilevel compression deformities involving the thoracic and upper lumbar spine. 3. Degenerative changes involving the shoulders bilaterally (right worse than left). Donta Raya MD ([place],Mary M. [employer]) Physical Exam General General Appearance: Well Nourished, No Acute Distress, Comfortable, Anxious ( [place],Mary M. [employer]) Eyes Eye Exam: Pupils Equal, Pupils Reactive ([place],Mary M. [employer]) Ears & Nose Ears & Nose Exam: Nasal Mucosa [place] (Jed,Mary M. [employer]) Throat Throat Exam: Oral Mucosa [place] & Moist (Jed,Mary M. [employer]) Neck Neck Exam: Neck Supple, Trachea Midline ([place],Mary M. [employer]) Pulmonary Resp Exam: Breath Sounds Equal, Poor Inspiratory Effort (low volumes, smoker) ( [place],Mary M. [employer]) Cardiology CV Exam: Regular (Jed,Mary M. [employer]) Gastrointestinal/Abdomen GI Exam: Soft, Non-Tender, Bowel Sounds Present, Non-Distended ([place],Mary M[employer]) Musculoskeletal MS Exam: Joints Intact MS Remarks lt. leg cast, elevated NWB, LL (Jed,Mary M. [employer]) Integumentary Skin Exam: Warm, Dry ([place],Mary M[employer]) Extremeties Extremities Exam: No Edema, Pedal Pulses Palpable, Trace Edema ([place],Mary M. [employer]) Neurologic Neuro Exam: Alert, Awake, Speech Clear, [employer] Coating Equal ([place],Mary M. [employer]) VTE Prophylaxis VTE Prophylaxis Meds: Lovenox ([place],Mary M. [employer]) Assessment/Plan Problem List: (1) Fracture of distal end of left tibia (2) Edema of left foot (3) Edema of left ankle (4) Fracture of distal fibula (5) History of CVA (cerebrovascular accident) (6) Hyponatremia (7) Depression (8) HTN (hypertension) (9) Acute renal injury (10) Major neurocognitive disorder Assessment/Plan S/P Left lower extremity open reduction and internal fixation of distal tibial pilon fracture with close reduction of distal fibula fracture 02/27 -Appreciate orthopedic , Ortho nonweightbearing left leg, stable for discharge no longer seeing patient Pain management -Lovenox for DVT prophylaxis -Physical therapy sees patient with the treatment regimen bowel regimen History of CVA, possible cognitive deficits related to CVA -Continue home medication, medical management Patient's mother is her acting spokesperson, plan is for rehabilitation, but no current facility to take her Anxiety and depression Continue with home medication, medical management and currently patient shows no sign of anxiety Discharge planning, SNF rehab, pending placement. Attempting to get in touch with Gamal, nurse practitioner for Dr. Prado. Wanting to find out how long patient will be nonweightbearing, and, follow up Dr. Prado is requesting. Case management on board, working through plan of care or her discharge Discussed with Dr. Benítez, seen on her behalf D/W Erica, charge nurse (Mary dAkins) Assessment/Plan patient seen and examined continue current care awaiting placement discussed with Mary NEWELL (Ursula Benítez MD) Problem Qualifiers (1) Fracture of distal end of left tibia: Qualified Code: S82.302A - Closed fracture of distal end of left tibia, unspecified fracture morphology, initial encounter (2) Fracture of distal fibula: Qualified Code: S82.832A - Closed fracture of distal end of left fibula, unspecified fracture morphology, initial encounter (3) Depression: Qualified Code: F32.9 - Depression, unspecified depression type (4) HTN (hypertension): Qualified Code: I10 - Essential hypertension Mary Adkins Mar 08, 2017 12:18 Ursula Benítez MD Mar 08, 2017 15:44
[2017-03-08] MEDS: ENOXAPARIN SODIUM 40 MG/0.4 ML SYRINGE SQ SCH (12:42)
[2017-03-08 16:00] VITALS: BP 126/68; PULSE 68; RESP 18; TEMP 97.7; O2SAT 96
[2017-03-08 20:00] VITALS: BP 144/88; PULSE 69; PULSE 70; RESP 17; TEMP 96.8; O2SAT 96
[2017-03-08] MEDS: ATORVASTATIN 10 MG TAB PO SCH (20:14)
[2017-03-09] VITALS (8 sets, daily range): BP systolic 114–163; BP diastolic 63–92; PULSE 63–79; RESP 16–18; TEMP 96–98.8; O2SAT 94–97
[2017-03-09] MEDS: ACETAMINOPHEN/HYDROcodone 325 MG/5 MG TAB PO PRN ×4 (00:32→20:43)
[2017-03-09] MEDS: LACTATED RINGER'S 1000 ML INJ 1,000 ML IV SCH (01:15)
[2017-03-09] MEDS: DEXT 5%-NACL 0.45% 1000 ML INJ 1,000 ML IV SCH ×3 (01:17→21:17)
[2017-03-09] MEDS: ALPRAZolam 1 MG TAB PO PRN ×3 (02:53→16:28)
[2017-03-09 08:23] LABS: BICARBONATE 30.9 MEQ/L (21.0-32.0)
[2017-03-09] MEDS: cloNIDine HCL 0.1 MG TAB PO SCH ×2 (09:00→20:43)
[2017-03-09] MEDS: ATENOLOL 100 MG TAB PO SCH ×3 (09:00→17:12)
[2017-03-09] MEDS: MULTIVITAMINS/MINERALS THERAPEUTIC TAB PO SCH (09:16)
[2017-03-09] MEDS: NICOTINE 21 MG/24 HR PATCH T-DERMAL SCH (09:16)
[2017-03-09] MEDS: CYCLOBENZAPRINE HCL 10 MG TAB PO SCH ×3 (09:17→17:12)
[2017-03-09] MEDS: DOCUSATE SODIUM 50 MG/SENNA 8.6 MG TAB PO SCH ×2 (09:17→20:43)
[2017-03-09] MEDS: GABAPENTIN 100 MG CAP PO SCH ×3 (09:18→17:12)
[2017-03-09] MEDS: MAGNESIUM HYDROXIDE SUSP 30 ML CUP PO SCH (09:18)
[2017-03-09] MEDS: ESCITALOPRAM OXALATE 10 MG TAB PO SCH (09:18)
[2017-03-09] MEDS: SODIUM CHLORIDE 0.9% FLUSH 10 ML FLUSH IV FLUSH SCH ×2 (09:25→20:44)
--- NOTE | 2017-03-09 10:30 | HHI.PR ---
Subjective Subjective Remarks Resting in bed Gets up out of bed in chair every day, PT involved Alert, cooperative Talkative Nonweightbearing, left leg per ortho (Mary Adkins) Review of Systems Constitutional Constitutional: Weakness Constitutional Remarks 10 point ROS done. Positive noted, pain management, nonweightbearing left leg, other systems unremarkable. (Mary Adkins) GI/Abdomen GI/Abdominal Exam: Constipation GI/Abdomen Remarks Bowel regimin on board. (Mary Adkins) Musculoskeletal MS: Weakness, Stiffness (recent fx), Swelling (left lower leg), Discomfort/Pain (Mary Adkins) Integumentary Skin: Wounds Skin Remarks lt. leg cast on, no upper leg edema (Mary Adkins) Neurologic Neurologic Remarks Anxious, questionable mentation and orientation to current situation (Mary Adkins) Psychiatric Psychiatric: Agitation, Anxiety (Mary Adkins) Vitals/Results Intake & Output 03/08/17 03/08/17 03/09/17 14:59 22:59 06:59 Intake Total 1800 ml 240 ml Output Total 1225 ml Balance 575 ml 240 ml Intake Oral 1800 ml 240 ml Output Urine Total 1225 ml # Voids 5 2 # Bowel Movements 0 0 Vital Signs Vital Signs Date Time Temp Pulse Resp B/P Pulse Ox O2 Delivery O2 Flow Rate FiO2 03/09/17 08:05 78 03/09/17 07:28 96.0 78 16 114/63 97 03/09/17 04:00 96.6 63 17 132/69 94 03/09/17 00:00 96.7 71 18 145/90 95 03/08/17 20:00 96.8 69 17 144/88 96 03/08/17 20:00 96 Room Air 03/08/17 20:00 70 03/08/17 16:00 97.7 68 18 126/68 96 03/08/17 12:00 98.1 72 18 124/76 98 (Mary Adkins) CBC/BMP: 03/09/17 0736 Lab Results Laboratory Tests Test 03/09/17 07:36 Sodium Level 133 MEQ/L Potassium Level 4.0 MEQ/L Chloride Level 94 MEQ/L Carbon Dioxide Level 30.9 MEQ/L Anion Gap 8 MEQ/L Blood Urea Nitrogen 6 MG/DL Creatinine 0.78 MG/DL Estimat Glomerular Filtration 76 ML/MIN Rate Random Glucose 106 MG/DL Calcium Level 9.0 MG/DL (JedMary M. [employer]) Physical Exam General General Appearance: Well Nourished, No Acute Distress, Comfortable, Anxious ( [place] [employer] AND [employer]) Eyes Eye Exam: Pupils Equal, Pupils Reactive (JedMary M. [employer] INS[employer]) Ears & Nose Ears & Nose Exam: Nasal Mucosa [place] (EjdMary M. [employer]AL INSPECTOR AND TESTER) Throat Throat Exam: Oral Mucosa [place] & Moist ([place] [employer] INS[employer] AND [employer]) Neck Neck Exam: Neck Supple, Trachea Midline (JedMary M. [employer]) Pulmonary Resp Exam: Breath Sounds Equal, Poor Inspiratory Effort (low volumes, smoker) ( [place],Mary M. [employer]) Cardiology CV Exam: Regular ([place] [employer] INSPECT[employer] AND TE[employer]) Gastrointestinal/Abdomen GI Exam: Soft, Non-Tender, Bowel Sounds Present, Non-Distended (JedMary M. [employer] INS[employer]) Musculoskeletal MS Exam: Joints Intact MS Remarks lt. leg cast, elevated NWB, LL ([place] [employer] INSPECTOR AND [employer]) Integumentary Skin Exam: Warm, Dry ([place],Mary M. [employer] INS[employer]) Extremeties Extremities Exam: No Edema, Pedal Pulses Palpable, Trace Edema ([place] [employer] INS[employer] AND [employer]) Neurologic Neuro Exam: Alert, Awake, Speech Clear, [employer] Equal ([place] M. [employer] INSPECT[employer] AND TESTER) VTE Prophylaxis VTE Prophylaxis Meds: Lovenox ([place],Mary M. [employer] INS[employer]) Assessment/Plan Problem List: (1) Fracture of distal end of left tibia (2) Edema of left foot (3) Edema of left ankle (4) Fracture of distal fibula (5) History of CVA (cerebrovascular accident) (6) Hyponatremia (7) Depression (8) HTN (hypertension) (9) Acute renal injury (10) Major neurocognitive disorder Assessment/Plan S/P Left lower extremity open reduction and internal fixation of distal tibial pilon fracture with close reduction of distal fibula fracture 02/27 -Appreciate orthopedic , Ortho nonweightbearing left leg, stable for discharge no longer seeing patient. Spoke with Gamal the BAR WELDER today with ortho. States patient will have to be nonweightbearing for 6-8 weeks. Pain management -Lovenox for DVT prophylaxis -Physical therapy sees patient with the treatment regimen bowel regimen, will give meds today if BM has been 3 days or more History of CVA, possible cognitive deficits related to CVA -Continue home medication, medical management Patient's mother is her acting spokesperson, plan is for rehabilitation, but no current facility to take her Anxiety and depression Continue with home medication, medical management. Anxious to get out of hospital, but still is requesting not to go to a rehabilitation. Discharge planning, SNF rehab, pending placement. Attempting to get in touch with Gamal, nurse practitioner for Dr. Prado. Wanting to find out how long patient will be nonweightbearing, and, follow up Dr. Prado is requesting. Case management on board, working through plan of care or her discharge Discussed with Dr. Benítez, seen on her behalf D/W Erica, charge nurse Discussed with case management (Mary Adkins) Assessment/Plan patient seen and examined still awaiting placement discussed with case management in detail discussed with Mary NEWELL (Ursula Benítez MD) Problem Qualifiers (1) Fracture of distal end of left tibia: Qualified Code: S82.302A - Closed fracture of distal end of left tibia, unspecified fracture morphology, initial encounter (2) Fracture of distal fibula: Qualified Code: S82.832A - Closed fracture of distal end of left fibula, unspecified fracture morphology, initial encounter (3) Depression: Qualified Code: F32.9 - Depression, unspecified depression type (4) HTN (hypertension): Qualified Code: I10 - Essential hypertension Mary Adkins Mar 09, 2017 10:30 Ursula Benítez MD Mar 09, 2017 13:41
[2017-03-09] MEDS: ENOXAPARIN SODIUM 40 MG/0.4 ML SYRINGE SQ SCH (13:20)
[2017-03-09] MEDS: SODIUM CHLOR 0.9% 1000 ML INJ 1,000 ML IV SCH (14:30)
[2017-03-09] MEDS: ATORVASTATIN 10 MG TAB PO SCH (20:43)
[2017-03-09] MEDS: NICOTINE 21 MG/24 HR PATCH T-DERMAL PRN (20:50)
[2017-03-09] MEDS: REMOVE OLD PATCH T-DERMAL SCH (20:50)
[2017-03-10] MEDS: ALPRAZolam 1 MG TAB PO PRN ×4 (00:59→18:19)
[2017-03-10] MEDS: LACTATED RINGER'S 1000 ML INJ 1,000 ML IV SCH (01:15)
[2017-03-10] MEDS: ACETAMINOPHEN/HYDROcodone 325 MG/5 MG TAB PO PRN ×4 (02:32→20:18)
[2017-03-10 04:10] VITALS: BP 134/81; PULSE 71; RESP 17; TEMP 98.2; O2SAT 97
[2017-03-10] MEDS: DEXT 5%-NACL 0.45% 1000 ML INJ 1,000 ML IV SCH ×2 (07:17→17:17)
[2017-03-10 08:03] VITALS: BP 126/71; PULSE 78; RESP 16; TEMP 97; O2SAT 99
[2017-03-10] MEDS: NICOTINE 21 MG/24 HR PATCH T-DERMAL SCH (08:03)
[2017-03-10] MEDS: REMOVE OLD PATCH T-DERMAL SCH (08:03)
[2017-03-10] MEDS: MAGNESIUM HYDROXIDE SUSP 30 ML CUP PO SCH (08:03)
[2017-03-10] MEDS: MULTIVITAMINS/MINERALS THERAPEUTIC TAB PO SCH (08:04)
[2017-03-10] MEDS: DOCUSATE SODIUM 50 MG/SENNA 8.6 MG TAB PO SCH ×2 (08:05→20:17)
[2017-03-10] MEDS: ESCITALOPRAM OXALATE 10 MG TAB PO SCH (08:05)
[2017-03-10] MEDS: ATENOLOL 100 MG TAB PO SCH ×3 (08:05→18:19)
[2017-03-10] MEDS: GABAPENTIN 100 MG CAP PO SCH ×3 (08:06→18:19)
[2017-03-10] MEDS: CYCLOBENZAPRINE HCL 10 MG TAB PO SCH ×3 (08:06→18:19)
[2017-03-10] MEDS: SODIUM CHLORIDE 0.9% FLUSH 10 ML FLUSH IV FLUSH SCH ×2 (09:00→20:18)
[2017-03-10] MEDS: cloNIDine HCL 0.1 MG TAB PO SCH ×2 (09:00→20:17)
[2017-03-10] MEDS: SODIUM CHLOR 0.9% 1000 ML INJ 1,000 ML IV SCH (10:30)
--- NOTE | 2017-03-10 11:32 | HHI.PR ---
Subjective Subjective Remarks Resting in bed Gets up out of bed in chair every day, PT involved Nonweightbearing, left leg per ortho, 6-8 weeks No acute anxiety noted Alert, cooperative for now Review of Systems Constitutional Constitutional: Weakness Constitutional Remarks 10 point ROS done. Positive noted, pain management, nonweightbearing left leg, other systems unremarkable. GI/Abdomen GI/Abdominal Exam: Constipation GI/Abdomen Remarks Bowel regimin on board. Musculoskeletal MS: Weakness, Stiffness (recent fx), Swelling (left lower leg), Discomfort/Pain Integumentary Skin: Wounds Skin Remarks lt. leg cast on, no upper leg edema, elevated Neurologic Neurologic Remarks Anxious, questionable mentation and orientation to current situation Psychiatric Psychiatric: Agitation, Anxiety Vitals/Results Intake & Output 03/09/17 03/09/17 03/10/17 15:00 23:00 07:00 Intake Total 1700 ml 660 ml Output Total 500 ml 4 ml Balance 1200 ml 656 ml Intake Oral 1700 ml 660 ml Output Urine Total 500 ml 4 ml # Voids 4 # Bowel Movements 1 0 Vital Signs Vital Signs Date Time Temp Pulse Resp B/P Pulse Ox O2 Delivery O2 Flow Rate FiO2 03/10/17 08:03 97.0 78 16 126/71 99 03/10/17 04:10 98.2 71 17 134/81 97 03/09/17 23:45 97.1 70 17 163/92 97 03/09/17 19:39 98.7 69 16 132/92 95 03/09/17 18:14 96 Room Air 03/09/17 18:12 96 Nasal Cannula 03/09/17 16:07 98.8 79 17 132/86 96 03/09/17 11:34 97.4 78 17 141/90 96 CBC/BMP: 03/09/17 0736 Imaging Remarks Last Impressions Ankle X-Ray 02/27/17 0000 Signed Impressions: Service Date/Time: Monday, February 27, 2017 10:56 - CONCLUSION: Anatomic alignment. Yoni Ferreira MD FACR Lower Extremity CT 02/26/17 0000 Signed Impressions: Service Date/Time: Sunday, February 26, 2017 17:39 - CONCLUSION: Fracture of the distal tibia and fibula as described above. Yoni Ferreira MD FACR Foot X-Ray 02/26/17 0000 Signed Impressions: Service Date/Time: Sunday, February 26, 2017 15:49 - CONCLUSION: 1. Fractures through the distal tibial and fibular metaphyses. 2. Possible linear, nondisplaced fracture through the lateral base of the distal phalanx of the first ray Gamal Artis MD Chest X-Ray 02/26/17 0000 Signed Impressions: Service Date/Time: Sunday, February 26, 2017 17:51 - CONCLUSION: 1. No acute cardiopulmonary disease. 2. Degenerative changes, scoliosis and multilevel compression deformities involving the thoracic and upper lumbar spine. 3. Degenerative changes involving the shoulders bilaterally (right worse than left). Donta Raya MD Physical Exam General General Appearance: Well Nourished, No Acute Distress, Comfortable, Anxious Eyes Eye Exam: Pupils Equal, Pupils Reactive Ears & Nose Ears & Nose Exam: Nasal Mucosa [place] Throat Throat Exam: Oral Mucosa [place] & Moist Neck Neck Exam: Neck Supple, Trachea Midline Pulmonary Resp Exam: Breath Sounds Equal, Poor Inspiratory Effort (low volumes, smoker) Cardiology CV Exam: Regular Gastrointestinal/Abdomen GI Exam: Soft, Non-Tender, Bowel Sounds Present, Non-Distended Musculoskeletal MS Exam: Joints Intact MS Remarks lt. leg cast, elevated NWB, LL Integumentary Skin Exam: Warm, Dry Extremeties Extremities Exam: No Edema, Pedal Pulses Palpable, Trace Edema Neurologic Neuro Exam: Alert, Awake, Speech Clear, Auto Rental Clerk Equal VTE Prophylaxis VTE Prophylaxis Meds: Lovenox Assessment/Plan Problem List: (1) Fracture of distal end of left tibia (2) Edema of left foot (3) Edema of left ankle (4) Fracture of distal fibula (5) History of CVA (cerebrovascular accident) (6) Hyponatremia (7) Depression (8) HTN (hypertension) (9) Acute renal injury (10) Major neurocognitive disorder Assessment/Plan S/P Left lower extremity open reduction and internal fixation of distal tibial pilon fracture with close reduction of distal fibula fracture 02/27 -Appreciate orthopedic , Ortho nonweightbearing left leg, stable for discharge . nonweightbearing for 6-8 weeks. Pain management -Lovenox for DVT prophylaxis -Physical therapy sees patient with the treatment regimen History of CVA, possible cognitive deficits related to CVA -Continue home medication, medical management Patient's mother is her acting spokesperson, plan is for rehabilitation, but no current facility to take her Patient is alert, answers questions appropriately, but does not always remember history. Forgets easily, chronic problems probably secondary to her CVA Anxiety and depression Continue with home medication, medical management. No acute anxiety noted. She will request medications as needed Discharge planning, SNF rehab, pending placement. Case management spoke with male friend yesterday on the phone. He is coming up today and would like to talk to case management and or physicians for update. Discussed with Dr. Benítez, seen on her behalf Spoke with case management Spoke with nurse Problem Qualifiers (1) Fracture of distal end of left tibia: Qualified Code: S82.302A - Closed fracture of distal end of left tibia, unspecified fracture morphology, initial encounter (2) Fracture of distal fibula: Qualified Code: S82.832A - Closed fracture of distal end of left fibula, unspecified fracture morphology, initial encounter (3) Depression: Qualified Code: F32.9 - Depression, unspecified depression type (4) HTN (hypertension): Qualified Code: I10 - Essential hypertension Mary Adkins Mar 10, 2017 11:32
[2017-03-10 11:33] VITALS: BP 124/78; PULSE 70; RESP 17; TEMP 99; O2SAT 95
[2017-03-10 15:23] VITALS: BP 156/89; PULSE 70; RESP 18; TEMP 99.1; O2SAT 97
[2017-03-10 19:45] VITALS: BP 144/87; PULSE 72; RESP 18; TEMP 98.9; O2SAT 96
[2017-03-10] MEDS: ATORVASTATIN 10 MG TAB PO SCH (20:16)
[2017-03-11] VITALS (7 sets, daily range): BP systolic 114–176; BP diastolic 76–98; PULSE 58–94; RESP 18–19; TEMP 96.4–99.2; O2SAT 94–98
[2017-03-11] MEDS: ALPRAZolam 1 MG TAB PO PRN ×4 (00:36→18:26)
[2017-03-11] MEDS: LACTATED RINGER'S 1000 ML INJ 1,000 ML IV SCH ×2 (01:15→19:49)
[2017-03-11] MEDS: DEXT 5%-NACL 0.45% 1000 ML INJ 1,000 ML IV SCH ×3 (03:17→19:49)
[2017-03-11] MEDS: ACETAMINOPHEN/HYDROcodone 325 MG/5 MG TAB PO PRN ×3 (03:59→16:21)
[2017-03-11] MEDS ORDERED: amLODIPine BESYLATE 5 MG TAB PO SCH (04:00)
[2017-03-11] MEDS: SODIUM CHLOR 0.9% 1000 ML INJ 1,000 ML IV SCH ×2 (06:30→19:49)
[2017-03-11] MEDS: cloNIDine HCL 0.1 MG TAB PO SCH ×2 (09:00→21:47)
[2017-03-11] MEDS: SODIUM CHLORIDE 0.9% FLUSH 10 ML FLUSH IV FLUSH SCH ×2 (09:00→21:00)
[2017-03-11] MEDS: DOCUSATE SODIUM 50 MG/SENNA 8.6 MG TAB PO SCH ×2 (09:08→21:47)
[2017-03-11] MEDS: MAGNESIUM HYDROXIDE SUSP 30 ML CUP PO SCH (09:08)
[2017-03-11] MEDS: amLODIPine BESYLATE 5 MG TAB PO SCH (09:09)
[2017-03-11] MEDS: MULTIVITAMINS/MINERALS THERAPEUTIC TAB PO SCH (09:09)
[2017-03-11] MEDS: GABAPENTIN 100 MG CAP PO SCH ×3 (09:09→19:30)
[2017-03-11] MEDS: ATENOLOL 100 MG TAB PO SCH ×3 (09:09→19:30)
[2017-03-11] MEDS: CYCLOBENZAPRINE HCL 10 MG TAB PO SCH ×3 (09:09→19:30)
[2017-03-11] MEDS: ESCITALOPRAM OXALATE 10 MG TAB PO SCH (09:09)
[2017-03-11] MEDS: NICOTINE 21 MG/24 HR PATCH T-DERMAL SCH (09:10)
--- NOTE | 2017-03-11 11:35 | HHI.PR ---
Subjective Subjective Remarks awake, oriented x 2 No fever Pain well managed No acute changes overnight Review of Systems Constitutional Constitutional Remarks 12 point ROS limited Vitals/Results Intake & Output 03/10/17 03/10/17 03/11/17 15:00 23:00 07:00 Intake Total 600 ml 480 ml 2100 ml Output Total 2600 ml Balance 600 ml 480 ml -500 ml Intake Oral 600 ml 480 ml 2100 ml Output Urine Total 2600 ml # Voids 3 2 # Bowel Movements 0 0 1 Vital Signs Vital Signs Date Time Temp Pulse Resp B/P Pulse Ox O2 Delivery O2 Flow Rate FiO2 03/11/17 08:00 96.4 72 18 114/78 98 03/11/17 04:45 98.6 58 19 148/76 95 03/11/17 00:00 98.4 69 18 176/96 97 03/10/17 19:45 98.9 72 18 144/87 96 03/10/17 15:23 99.1 70 18 156/89 97 CBC/BMP: 03/09/17 0736 Physical Exam General General Appearance: Well Nourished, No Acute Distress, Comfortable Eyes Eye Exam: Pupils Equal, Pupils Reactive Ears & Nose Ears & Nose Exam: Nasal Mucosa [place] Throat Throat Exam: Oral Mucosa [place] & Moist Neck Neck Exam: Neck Supple, Trachea Midline Pulmonary Resp Exam: Breath Sounds Equal, Poor Inspiratory Effort (low volumes, smoker) Cardiology CV Exam: Regular Gastrointestinal/Abdomen GI Exam: Soft, Non-Tender, Bowel Sounds Present, Non-Distended Musculoskeletal MS Exam: Joints Intact MS Remarks left leg with dressing, splint intact Integumentary Skin Exam: Warm, Dry Extremeties Extremities Exam: No Edema, Pedal Pulses Palpable, Trace Edema Neurologic Neuro Exam: Alert, Awake, Speech Clear, Poultry Farm Worker Equal VTE Prophylaxis VTE Prophylaxis Meds: Lovenox Assessment/Plan Problem List: (1) Fracture of distal end of left tibia (2) Edema of left foot (3) Edema of left ankle (4) Fracture of distal fibula (5) History of CVA (cerebrovascular accident) (6) Hyponatremia (7) Depression (8) HTN (hypertension) (9) Acute renal injury (10) Major neurocognitive disorder Assessment/Plan 67-year-old female who came to the emergency room complaining of left foot swelling and pain, questionable history of recent cellulitis. Denies any actual injury. Imaging studies completed, was noted with fracture of the distal tib and fib. Also positive for linear nondisplaced fracture to the lateral base of the distal phalanx of the first ray. Was evaluated by orthopedic surgeon S/P Left lower extremity open reduction and internal fixation of distal tibial pilon fracture with close reduction of distal fibula fracture 02/27 -Appreciate orthopedic input Continue with postoperative orthopedic care -Questionable history recent cellulitis, completed Ancef postoperatively -Pain management -Lovenox for DVT prophylaxis -Physical therapy per orthopedic recommendations Hyponatremia, etiology unclear-resolved sodium better Acute renal injury, possibly secondary to dehydration-improved Resolved Avoid nephrotoxic agent History of CVA -Continue home medication Hypertension, stable -Continue home medical Lipidemia, stable Continue with home medication Anxiety and depression Continue with home medication Cognitive deficits, possibly secondary to CVA which is decision making and subsequent placement. Patient refusing to go to SNF. Unable to go to [facility] due to not being able to meet her needs -appreciate psych input, pt. with poss. undiagnosed cognitive impairment most probably related with CVA highly suspected. Since the patient is unable to express the reason of her hospitalization, is unable to verbalize a clear understanding and appreciation of current medical problems, she has unrealistic expectations about her prognosis. Per psyche, she does not have decision- making capacity to participate in discharge planning at this moment. She can continue Lexapro 10 mg for depression. Agree 100% with the involvement of palliative care in this case to determining who will be the surrogated decision maker for the patient or health care by proxy. -Palliative care input appreciated. Palliative care spoke to pt's mother, she is proxy Patient has been cleared for discharge, placement has been an issue. Multiple facilities have been asked to evaluate patient and have denied her Boyfriend was going to take her home, however CM found out that he is homeless Patient will be transferred to [facility] while waiting for bed D/W RN D/W Dr. Day D/W pt. D/W CM This patient was seen by myself and Dr. Day, this note is written on his behalf Problem Qualifiers (1) Fracture of distal end of left tibia: Qualified Code: S82.302A - Closed fracture of distal end of left tibia, unspecified fracture morphology, initial encounter (2) Fracture of distal fibula: Qualified Code: S82.832A - Closed fracture of distal end of left fibula, unspecified fracture morphology, initial encounter (3) Depression: Qualified Code: F32.9 - Depression, unspecified depression type (4) HTN (hypertension): Qualified Code: I10 - Essential hypertension Mariaa Weeks [facility] Mar 11, 2017 11:35
[2017-03-11] MEDS: REMOVE OLD PATCH T-DERMAL SCH (21:00)
[2017-03-11] MEDS: ATORVASTATIN 10 MG TAB PO SCH (21:48)
[2017-03-12] MEDS: ACETAMINOPHEN/HYDROcodone 325 MG/5 MG TAB PO PRN ×3 (01:18→13:46)
[2017-03-12] MEDS: ALPRAZolam 1 MG TAB PO PRN ×4 (01:19→13:44)
[2017-03-12 08:21] VITALS: BP 133/78; PULSE 90; RESP 17; TEMP 97.6; O2SAT 95
--- NOTE | 2017-03-12 08:37 | HHI.PR ---
Subjective History of Present Illness Patient have drowsiness and difficult to woke up I cut down on pain medicine and Xanax d/w RN Devora no other issue. Review of Systems Constitutional Constitutional: Fatigue, Weakness Vitals/Results Intake & Output 03/11/17 03/11/17 03/12/17 15:00 23:00 07:00 Intake Total 840 ml 450 ml Balance 840 ml 450 ml Intake Oral 840 ml 450 ml # Voids 5 2 # Bowel Movements 0 0 Vital Signs Vital Signs Date Time Temp Pulse Resp B/P Pulse Ox O2 Delivery O2 Flow Rate FiO2 03/12/17 08:21 97.6 90 17 133/78 95 03/11/17 20:00 98.1 77 18 147/98 98 03/11/17 19:00 99.2 94 18 120/81 03/11/17 16:10 98.7 78 18 143/81 97 03/11/17 11:48 97.1 72 19 120/78 94 CBC/BMP: 03/09/17 0736 Physical Exam General General Appearance: Well Nourished, No Acute Distress, Comfortable Eyes Eye Exam: Pupils Equal, Pupils Reactive, Sclera White, Extraocular Movement Intact Ears & Nose Ears & Nose Exam: Nasal Mucosa [place] Throat Throat Exam: Oral Mucosa [place] & Moist, Oral Pharynx Normal Neck Neck Exam: Neck Supple, Trachea Midline Pulmonary Resp Exam: Breath Sounds Equal, Poor Inspiratory Effort (low volumes, smoker) Cardiology CV Exam: Regular Gastrointestinal/Abdomen GI Exam: Soft, Non-Tender, Bowel Sounds Present, Non-Distended Musculoskeletal MS Exam: Joints Intact Integumentary Skin Exam: Warm, Dry Extremeties Extremities Exam: No Edema, Pedal Pulses Palpable, Trace Edema Neurologic Neuro Exam: Alert, Awake, Speech Clear, Feed Handler Equal VTE Prophylaxis VTE Prophylaxis Meds: Lovenox Assessment/Plan Problem List: (1) Fracture of distal end of left tibia (2) Edema of left foot (3) Edema of left ankle (4) Fracture of distal fibula (5) History of CVA (cerebrovascular accident) (6) Hyponatremia (7) Depression (8) HTN (hypertension) (9) Acute renal injury (10) Major neurocognitive disorder Assessment/Plan 67-year-old female who came to the emergency room complaining of left foot swelling and pain, questionable history of recent cellulitis. Denies any actual injury. Imaging studies completed, was noted with fracture of the distal tib and fib. Also positive for linear nondisplaced fracture to the lateral base of the distal phalanx of the first ray. Was evaluated by orthopedic surgeon S/P Left lower extremity open reduction and internal fixation of distal tibial pilon fracture with close reduction of distal fibula fracture 02/27 -Appreciate orthopedic input Continue with postoperative orthopedic care -Questionable history recent cellulitis, completed Ancef postoperatively -Pain management -Lovenox for DVT prophylaxis -Physical therapy per orthopedic recommendations Hyponatremia, etiology unclear-resolved sodium better Acute renal injury, possibly secondary to dehydration-improved Resolved Avoid nephrotoxic agent History of CVA -Continue home medication Hypertension, stable -Continue home medical Lipidemia, stable Continue with home medication Anxiety and depression Continue with home medication Cognitive deficits, possibly secondary to CVA which is decision making and subsequent placement. Patient refusing to go to SNF. Unable to go to [facility] due to not being able to meet her needs -appreciate psych input, pt. with poss. undiagnosed cognitive impairment most probably related with CVA highly suspected. Since the patient is unable to express the reason of her hospitalization, is unable to verbalize a clear understanding and appreciation of current medical problems, she has unrealistic expectations about her prognosis. Per psyche, she does not have decision- making capacity to participate in discharge planning at this moment. She can continue Lexapro 10 mg for depression. Agree 100% with the involvement of palliative care in this case to determining who will be the surrogated decision maker for the patient or health care by proxy. -Palliative care input appreciated. Palliative care spoke to pt's mother, she is proxy Patient has been cleared for discharge, placement has been an issue. Multiple facilities have been asked to evaluate patient and have denied her Boyfriend was going to take her home, however CM found out that he is homeless Patient will be transferred to [facility] while waiting for bed Check CBC with diff CMP in AM. D/W RN D/W patient. Discussed Condition with: Patient Problem Qualifiers (1) Fracture of distal end of left tibia: Qualified Code: S82.302A - Closed fracture of distal end of left tibia, unspecified fracture morphology, initial encounter (2) Fracture of distal fibula: (3) Depression: Qualified Code: F32.9 - Depression, unspecified depression type (4) HTN (hypertension): Qualified Code: I10 - Essential hypertension Ahmed,Jatinder MD Mar 12, 2017 08:37
[2017-03-12] MEDS: MAGNESIUM HYDROXIDE SUSP 30 ML CUP PO SCH (08:48)
[2017-03-12] MEDS: NICOTINE 21 MG/24 HR PATCH T-DERMAL SCH (08:48)
[2017-03-12] MEDS: MULTIVITAMINS/MINERALS THERAPEUTIC TAB PO SCH (08:49)
[2017-03-12] MEDS: DOCUSATE SODIUM 50 MG/SENNA 8.6 MG TAB PO SCH ×2 (08:49→21:44)
[2017-03-12] MEDS: GABAPENTIN 100 MG CAP PO SCH ×3 (08:49→17:59)
[2017-03-12] MEDS: ATENOLOL 25 MG TAB PO SCH ×3 (08:49→17:57)
[2017-03-12] MEDS: cloNIDine HCL 0.1 MG TAB PO SCH ×2 (08:49→20:30)
[2017-03-12] MEDS: ESCITALOPRAM OXALATE 10 MG TAB PO SCH (08:50)
[2017-03-12] MEDS: CYCLOBENZAPRINE HCL 10 MG TAB PO SCH ×3 (08:50→17:59)
[2017-03-12] MEDS: amLODIPine BESYLATE 5 MG TAB PO SCH (08:50)
[2017-03-12] MEDS: SODIUM CHLORIDE 0.9% FLUSH 10 ML FLUSH IV FLUSH SCH ×2 (08:56→20:29)
[2017-03-12] MEDS: DEXT 5%-NACL 0.45% 1000 ML INJ 1,000 ML IV SCH (09:17)
[2017-03-12 20:00] VITALS: BP 115/81; PULSE 70; RESP 20; TEMP 98.2; O2SAT 95
[2017-03-12] MEDS: REMOVE OLD PATCH T-DERMAL SCH (21:00)
[2017-03-12] MEDS: ATORVASTATIN 10 MG TAB PO SCH (21:44)
[2017-03-12] MEDS ORDERED: ACETAMINOPHEN/HYDROcodone 325 MG/5 MG TAB PO SCH (22:00)
[2017-03-12] MEDS ORDERED: ALPRAZolam 1 MG TAB PO SCH (22:00)
[2017-03-12] MEDS: SODIUM CHLOR 0.9% 1000 ML INJ 1,000 ML IV SCH (22:30)
[2017-03-13] MEDS: LACTATED RINGER'S 1000 ML INJ 1,000 ML IV SCH (01:15)
[2017-03-13] MEDS: ACETAMINOPHEN/HYDROcodone 325 MG/5 MG TAB PO PRN ×3 (03:14→18:19)
[2017-03-13] MEDS: ALPRAZolam 1 MG TAB PO PRN ×3 (03:14→22:56)
[2017-03-13 07:10] LABS: AUTOMATED NEUTROPHIL # 7.4 TH/MM3 (1.8-7.7); BASOPHIL % 0.4 % (0.0-2.0); CHLORIDE 91 MEQ/L (98-107); EOSINOPHIL # 0.2 TH/MM3 (0-0.4); EOSINOPHIL % 2.1 % (0.0-4.0); HEMATOCRIT 38.9 % (35.0-46.0); HEMO FLAGS DIFF FINAL; LYMPH % 15.2 % (9.0-44.0); LYMPHOCYTE # 1.5 TH/MM3 (1.0-4.8); MEAN CELL VOLUME 89.3 FL (80.0-100.0); MEAN CORPUSCULAR HEMOGLOBIN 29.8 PG (27.0-34.0); MEAN CORPUSCULAR HGB CONC 33.3 % (32.0-36.0); MONO % 6.7 % (0.0-8.0); NEUT % 75.6 % (16.0-70.0); PLATELET COUNT 275 TH/MM3 (150-450); POTASSIUM 4.4 MEQ/L (3.5-5.1); RED BLOOD COUNT 4.36 MIL/MM3 (4.00-5.30); RED CELL DISTRIBUTION WIDTH 12.4 % (11.6-17.2); SODIUM (NA) 133 MEQ/L (136-145); WHITE BLOOD COUNT 9.8 TH/MM3 (4.0-11.0)
[2017-03-13 07:15] LABS: ANION GAP 10 MEQ/L (5-15); BICARBONATE 31.6 MEQ/L (21.0-32.0); BLOOD UREA NITROGEN 10 MG/DL (7-18)
[2017-03-13 07:18] LABS: ALT (GPT) 33 U/L (10-53); AST (GOT) 24 U/L (15-37); GLOMERULAR FILTRATION RATE 84 ML/MIN (>89)
[2017-03-13 07:19] LABS: TOTAL BILIRUBIN ADULT 0.4 MG/DL (0.2-1.0)
[2017-03-13 07:21] LABS: ALKALINE PHOSPHATASE 123 U/L (45-117)
[2017-03-13 08:00] VITALS: BP 129/85; PULSE 73; RESP 18; TEMP 95.5; O2SAT 94
[2017-03-13] MEDS: SODIUM CHLORIDE 0.9% FLUSH 10 ML FLUSH IV FLUSH SCH ×2 (09:00→21:00)
[2017-03-13] MEDS: cloNIDine HCL 0.1 MG TAB PO SCH ×3 (09:28→21:00)
[2017-03-13] MEDS: GABAPENTIN 100 MG CAP PO SCH ×3 (09:28→18:19)
[2017-03-13] MEDS: DOCUSATE SODIUM 50 MG/SENNA 8.6 MG TAB PO SCH ×2 (09:29→20:24)
[2017-03-13] MEDS: MULTIVITAMINS/MINERALS THERAPEUTIC TAB PO SCH (09:29)
[2017-03-13] MEDS: amLODIPine BESYLATE 5 MG TAB PO SCH (09:29)
[2017-03-13] MEDS: ATENOLOL 25 MG TAB PO SCH ×3 (09:29→18:19)
[2017-03-13] MEDS: CYCLOBENZAPRINE HCL 10 MG TAB PO SCH (09:29)
[2017-03-13] MEDS: ESCITALOPRAM OXALATE 10 MG TAB PO SCH (09:29)
[2017-03-13] MEDS: NICOTINE 21 MG/24 HR PATCH T-DERMAL SCH (09:30)
[2017-03-13] MEDS: MAGNESIUM HYDROXIDE SUSP 30 ML CUP PO SCH (09:44)
--- NOTE | 2017-03-13 09:45 | HHI.PR ---
Subjective History of Present Illness Patient feel better drowsiness and difficult to woke up ..better d/w RN Devora no other issue. mild low sodium will monitor. Review of Systems Constitutional Constitutional: Fatigue, Weakness Vitals/Results Intake & Output 03/12/17 03/12/17 03/13/17 15:00 23:00 07:00 Intake Total 0 ml 2740 ml 240 ml Balance 0 ml 2740 ml 240 ml Intake Oral 2740 ml 240 ml IV Total 0 ml # Voids 4 2 # Bowel Movements 1 1 Vital Signs Vital Signs Date Time Temp Pulse Resp B/P Pulse Ox O2 Delivery O2 Flow Rate FiO2 03/13/17 08:00 95.5 73 18 129/85 94 03/12/17 20:00 98.2 70 20 115/81 95 CBC/BMP: 03/13/17 0620 03/13/17 0620 Lab Results Laboratory Tests Test 03/13/17 06:20 White Blood Count 9.8 TH/MM3 Red Blood Count 4.36 MIL/MM3 Hemoglobin 13.0 GM/DL Hematocrit 38.9 % Mean Corpuscular Volume 89.3 FL Mean Corpuscular Hemoglobin 29.8 PG Mean Corpuscular Hemoglobin 33.3 % Concent Red Cell Distribution Width 12.4 % Platelet Count 275 TH/MM3 Mean Platelet Volume 8.0 FL Neutrophils (%) (Auto) 75.6 % Lymphocytes (%) (Auto) 15.2 % Monocytes (%) (Auto) 6.7 % Eosinophils (%) (Auto) 2.1 % Basophils (%) (Auto) 0.4 % Neutrophils # (Auto) 7.4 TH/MM3 Lymphocytes # (Auto) 1.5 TH/MM3 Monocytes # (Auto) 0.7 TH/MM3 Eosinophils # (Auto) 0.2 TH/MM3 Basophils # (Auto) 0.0 TH/MM3 CBC Comment DIFF FINAL Differential Comment Sodium Level 133 MEQ/L Potassium Level 4.4 MEQ/L Chloride Level 91 MEQ/L Carbon Dioxide Level 31.6 MEQ/L Anion Gap 10 MEQ/L Blood Urea Nitrogen 10 MG/DL Creatinine 0.72 MG/DL Estimat Glomerular Filtration 84 ML/MIN Rate Random Glucose 81 MG/DL Calcium Level 8.8 MG/DL Total Bilirubin 0.4 MG/DL Aspartate Amino Transf 24 U/L (AST/SGOT) Alanine Aminotransferase 33 U/L (ALT/SGPT) Alkaline Phosphatase 123 U/L Total Protein 7.3 GM/DL Albumin 3.2 GM/DL Physical Exam General General Appearance: Well Nourished, No Acute Distress, Comfortable Eyes Eye Exam: Pupils Equal, Pupils Reactive, Sclera White, Extraocular Movement Intact Ears & Nose Ears & Nose Exam: Nasal Mucosa [place] Throat Throat Exam: Oral Mucosa [place] & Moist, Oral Pharynx Normal Neck Neck Exam: Neck Supple, Trachea Midline Pulmonary Resp Exam: Breath Sounds Equal, Poor Inspiratory Effort (low volumes, smoker) Cardiology CV Exam: Regular Gastrointestinal/Abdomen GI Exam: Soft, Non-Tender, Bowel Sounds Present, Non-Distended Musculoskeletal MS Exam: Joints Intact Integumentary Skin Exam: Warm, Dry Extremeties Extremities Exam: No Edema, Pedal Pulses Palpable, Trace Edema Neurologic Neuro Exam: Alert, Awake, Speech Clear, Meeting/Event Planner Equal VTE Prophylaxis VTE Prophylaxis Meds: Lovenox Assessment/Plan Problem List: (1) Fracture of distal end of left tibia (2) Edema of left foot (3) Edema of left ankle (4) Fracture of distal fibula (5) History of CVA (cerebrovascular accident) (6) Hyponatremia (7) Depression (8) HTN (hypertension) (9) Acute renal injury (10) Major neurocognitive disorder Assessment/Plan 67-year-old female who came to the emergency room complaining of left foot swelling and pain, questionable history of recent cellulitis. Denies any actual injury. Imaging studies completed, was noted with fracture of the distal tib and fib. Also positive for linear nondisplaced fracture to the lateral base of the distal phalanx of the first ray. Was evaluated by orthopedic surgeon S/P Left lower extremity open reduction and internal fixation of distal tibial pilon fracture with close reduction of distal fibula fracture 02/27 -Appreciate orthopedic input Continue with postoperative orthopedic care -Questionable history recent cellulitis, completed Ancef postoperatively -Pain management -Lovenox for DVT prophylaxis -Physical therapy per orthopedic recommendations Hyponatremia, etiology unclear-resolved sodium better Acute renal injury, possibly secondary to dehydration-improved Resolved Avoid nephrotoxic agent History of CVA -Continue home medication Hypertension, stable -Continue home medical Lipidemia, stable Continue with home medication Anxiety and depression Continue with home medication Cognitive deficits, possibly secondary to CVA which is decision making and subsequent placement. Patient refusing to go to SNF. Unable to go to [facility] due to not being able to meet her needs -appreciate psych input, pt. with poss. undiagnosed cognitive impairment most probably related with CVA highly suspected. Since the patient is unable to express the reason of her hospitalization, is unable to verbalize a clear understanding and appreciation of current medical problems, she has unrealistic expectations about her prognosis. Per psyche, she does not have decision- making capacity to participate in discharge planning at this moment. She can continue Lexapro 10 mg for depression. Agree 100% with the involvement of palliative care in this case to determining who will be the surrogated decision maker for the patient or health care by proxy. -Palliative care input appreciated. Palliative care spoke to pt's mother, she is proxy Patient has been cleared for discharge, placement has been an issue. Multiple facilities have been asked to evaluate patient and have denied her Boyfriend was going to take her home, however CM found out that he is homeless Patient will be transferred to [facility] while waiting for bed Check CBC with diff CMP in AM. D/W RN D/W patient. Discussed Condition with: Patient Problem Qualifiers (1) Fracture of distal end of left tibia: (2) Fracture of distal fibula: (3) Depression: Qualified Code: F32.9 - Depression, unspecified depression type (4) HTN (hypertension): Qualified Code: I10 - Essential hypertension Jatinder Mata MD Mar 13, 2017 09:45
[2017-03-13 20:00] VITALS: BP 94/79; PULSE 68; RESP 16; TEMP 97.1; O2SAT 100
[2017-03-13] MEDS: ATORVASTATIN 10 MG TAB PO SCH (20:24)
[2017-03-13] MEDS: REMOVE OLD PATCH T-DERMAL SCH (20:59)
[2017-03-14] MEDS: LACTATED RINGER'S 1000 ML INJ 1,000 ML IV SCH (01:15)
[2017-03-14] MEDS: ACETAMINOPHEN/HYDROcodone 325 MG/5 MG TAB PO PRN ×4 (01:42→22:01)
[2017-03-14 08:00] VITALS: BP 121/77; PULSE 70; RESP 18; TEMP 97.7; O2SAT 98
[2017-03-14] MEDS: SODIUM CHLORIDE 0.9% FLUSH 10 ML FLUSH IV FLUSH SCH ×2 (09:00→20:10)
--- NOTE | 2017-03-14 09:46 | HHI.PR ---
Subjective History of Present Illness Patient feel better d/w RN Devora no other issue. mild low sodium will monitor. Review of Systems Constitutional Constitutional: Fatigue, Weakness Vitals/Results Intake & Output 03/13/17 03/13/17 03/14/17 15:00 23:00 07:00 Intake Total 720 ml 480 ml 480 ml Output Total 450 ml 1700 ml Balance 720 ml 30 ml -1220 ml Intake Oral 720 ml 480 ml 480 ml IV Total 0 ml Output Urine Total 450 ml 1700 ml # Voids 3 # Bowel Movements 1 1 0 Vital Signs Vital Signs Date Time Temp Pulse Resp B/P Pulse Ox O2 Delivery O2 Flow Rate FiO2 03/14/17 08:00 97.7 70 18 121/77 98 03/14/17 02:42 16 03/13/17 20:00 97.1 68 16 94/79 100 CBC/BMP: 03/13/17 0620 03/13/17 0620 Physical Exam General General Appearance: Well Nourished, No Acute Distress, Comfortable Eyes Eye Exam: Pupils Equal, Pupils Reactive, Sclera White, Extraocular Movement Intact Ears & Nose Ears & Nose Exam: Nasal Mucosa [place] Throat Throat Exam: Oral Mucosa [place] & Moist, Oral Pharynx Normal Neck Neck Exam: Neck Supple, Trachea Midline Pulmonary Resp Exam: Breath Sounds Equal, Poor Inspiratory Effort (low volumes, smoker) Cardiology CV Exam: Regular Gastrointestinal/Abdomen GI Exam: Soft, Non-Tender, Bowel Sounds Present, Non-Distended Musculoskeletal MS Exam: Joints Intact Integumentary Skin Exam: Warm, Dry Extremeties Extremities Exam: No Edema, Pedal Pulses Palpable, Trace Edema Neurologic Neuro Exam: Alert, Awake, Speech Clear, Post Graduate Internship Equal VTE Prophylaxis VTE Prophylaxis Meds: Lovenox Assessment/Plan Problem List: (1) Fracture of distal end of left tibia (2) Edema of left foot (3) Edema of left ankle (4) Fracture of distal fibula (5) History of CVA (cerebrovascular accident) (6) Hyponatremia (7) Depression (8) HTN (hypertension) (9) Acute renal injury (10) Major neurocognitive disorder Assessment/Plan 67-year-old female who came to the emergency room complaining of left foot swelling and pain, questionable history of recent cellulitis. Denies any actual injury. Imaging studies completed, was noted with fracture of the distal tib and fib. Also positive for linear nondisplaced fracture to the lateral base of the distal phalanx of the first ray. Was evaluated by orthopedic surgeon S/P Left lower extremity open reduction and internal fixation of distal tibial pilon fracture with close reduction of distal fibula fracture 02/27 -Appreciate orthopedic input Continue with postoperative orthopedic care -Questionable history recent cellulitis, completed Ancef postoperatively -Pain management -Lovenox for DVT prophylaxis -Physical therapy per orthopedic recommendations Hyponatremia, etiology unclear-resolved sodium better Acute renal injury, possibly secondary to dehydration-improved Resolved Avoid nephrotoxic agent History of CVA -Continue home medication Hypertension, stable -Continue home medical Lipidemia, stable Continue with home medication Anxiety and depression Continue with home medication Cognitive deficits, possibly secondary to CVA which is decision making and subsequent placement. Patient refusing to go to SNF. Unable to go to [facility] due to not being able to meet her needs -appreciate psych input, pt. with poss. undiagnosed cognitive impairment most probably related with CVA highly suspected. Since the patient is unable to express the reason of her hospitalization, is unable to verbalize a clear understanding and appreciation of current medical problems, she has unrealistic expectations about her prognosis. Per psyche, she does not have decision- making capacity to participate in discharge planning at this moment. She can continue Lexapro 10 mg for depression. Agree 100% with the involvement of palliative care in this case to determining who will be the surrogated decision maker for the patient or health care by proxy. -Palliative care input appreciated. Palliative care spoke to pt's mother, she is proxy Patient has been cleared for discharge, placement has been an issue. Multiple facilities have been asked to evaluate patient and have denied her Boyfriend was going to take her home, however CM found out that he is homeless Check CBC with diff CMP in AM. D/W RN D/W patient. Discussed Condition with: Patient Problem Qualifiers (1) Fracture of distal end of left tibia: (2) Fracture of distal fibula: (3) Depression: Qualified Code: F32.9 - Depression, unspecified depression type (4) HTN (hypertension): Qualified Code: I10 - Essential hypertension Jatinder Mata MD Mar 14, 2017 09:46
[2017-03-14 09:50] LABS: BASOPHIL % 0.2 % (0.0-2.0); EOSINOPHIL # 0.1 TH/MM3 (0-0.4); EOSINOPHIL % 2.1 % (0.0-4.0); HEMATOCRIT 40.8 % (35.0-46.0); HEMO FLAGS DIFF FINAL; MEAN CELL VOLUME 88.7 FL (80.0-100.0); MEAN CORPUSCULAR HGB CONC 32.7 % (32.0-36.0); MONO % 1.9 % (0.0-8.0); NEUT % 75.8 % (16.0-70.0); PLATELET COUNT 273 TH/MM3 (150-450); RED CELL DISTRIBUTION WIDTH 12.6 % (11.6-17.2); WHITE BLOOD COUNT 5.2 TH/MM3 (4.0-11.0)
[2017-03-14] MEDS: MAGNESIUM HYDROXIDE SUSP 30 ML CUP PO SCH (09:54)
[2017-03-14] MEDS: GABAPENTIN 100 MG CAP PO SCH ×3 (09:56→18:01)
[2017-03-14] MEDS: ESCITALOPRAM OXALATE 10 MG TAB PO SCH (09:56)
[2017-03-14] MEDS: MULTIVITAMINS/MINERALS THERAPEUTIC TAB PO SCH (09:56)
[2017-03-14] MEDS: amLODIPine BESYLATE 5 MG TAB PO SCH (09:56)
[2017-03-14] MEDS: ATENOLOL 25 MG TAB PO SCH ×3 (09:57→18:02)
[2017-03-14] MEDS: cloNIDine HCL 0.1 MG TAB PO SCH ×2 (09:57→20:16)
[2017-03-14] MEDS: DOCUSATE SODIUM 50 MG/SENNA 8.6 MG TAB PO SCH ×2 (09:57→20:17)
[2017-03-14 09:59] LABS: CHLORIDE 94 MEQ/L (98-107); POTASSIUM 3.9 MEQ/L (3.5-5.1); SODIUM (NA) 133 MEQ/L (136-145)
[2017-03-14] MEDS: NICOTINE 21 MG/24 HR PATCH T-DERMAL SCH (10:01)
[2017-03-14 10:04] LABS: ANION GAP 9 MEQ/L (5-15); BICARBONATE 29.8 MEQ/L (21.0-32.0); BLOOD UREA NITROGEN 9 MG/DL (7-18)
[2017-03-14 10:06] LABS: ALT (GPT) 28 U/L (10-53)
[2017-03-14 10:07] LABS: AST (GOT) 18 U/L (15-37); GLOMERULAR FILTRATION RATE 84 ML/MIN (>89)
[2017-03-14 10:09] LABS: ALKALINE PHOSPHATASE 125 U/L (45-117); TOTAL BILIRUBIN ADULT 0.3 MG/DL (0.2-1.0)
[2017-03-14] MEDS: ALPRAZolam 1 MG TAB PO PRN (18:01)
[2017-03-14 20:00] VITALS: BP 138/87; PULSE 70; RESP 20; TEMP 98.2; O2SAT 98
[2017-03-14] MEDS: ATORVASTATIN 10 MG TAB PO SCH (20:16)
[2017-03-14] MEDS: REMOVE OLD PATCH T-DERMAL SCH (20:20)
[2017-03-15] MEDS: LACTATED RINGER'S 1000 ML INJ 1,000 ML IV SCH (01:15)
[2017-03-15] MEDS: ALPRAZolam 1 MG TAB PO PRN ×4 (02:00→18:51)
[2017-03-15] MEDS: ACETAMINOPHEN/HYDROcodone 325 MG/5 MG TAB PO PRN ×3 (04:52→18:00)
[2017-03-15 05:19] LABS: CHLORIDE 96 MEQ/L (98-107); POTASSIUM 4.2 MEQ/L (3.5-5.1); SODIUM (NA) 135 MEQ/L (136-145)
[2017-03-15 05:20] LABS: AUTOMATED NEUTROPHIL # 3.8 TH/MM3 (1.8-7.7); BASOPHIL % 0.3 % (0.0-2.0); EOSINOPHIL # 0.2 TH/MM3 (0-0.4); EOSINOPHIL % 2.4 % (0.0-4.0); HEMATOCRIT 38.3 % (35.0-46.0); HEMO FLAGS DIFF FINAL; LYMPHOCYTE # 1.9 TH/MM3 (1.0-4.8); MEAN CORPUSCULAR HEMOGLOBIN 30.2 PG (27.0-34.0); MEAN CORPUSCULAR HGB CONC 33.9 % (32.0-36.0); MONO % 6.4 % (0.0-8.0); NEUT % 60.9 % (16.0-70.0); PLATELET COUNT 255 TH/MM3 (150-450); RED BLOOD COUNT 4.31 MIL/MM3 (4.00-5.30); RED CELL DISTRIBUTION WIDTH 12.6 % (11.6-17.2); WHITE BLOOD COUNT 6.3 TH/MM3 (4.0-11.0)
[2017-03-15 05:23] LABS: ANION GAP 10 MEQ/L (5-15); BICARBONATE 29.1 MEQ/L (21.0-32.0); BLOOD UREA NITROGEN 15 MG/DL (7-18)
[2017-03-15 05:26] LABS: ALT (GPT) 25 U/L (10-53); AST (GOT) 16 U/L (15-37); GLOMERULAR FILTRATION RATE 85 ML/MIN (>89)
[2017-03-15 05:27] LABS: TOTAL BILIRUBIN ADULT 0.3 MG/DL (0.2-1.0)
[2017-03-15 05:29] LABS: ALKALINE PHOSPHATASE 115 U/L (45-117)
[2017-03-15 08:00] VITALS: BP 131/83; PULSE 68; RESP 18; TEMP 98; O2SAT 97
--- NOTE | 2017-03-15 08:41 | HHI.PR ---
Subjective History of Present Illness Patient feel better d/w DAVID Pearl no other issue. mild low sodium will monitor...better. Review of Systems Constitutional Constitutional: Fatigue, Weakness Vitals/Results Intake & Output 03/14/17 03/14/17 03/15/17 15:00 23:00 07:00 Intake Total 600 ml 480 ml 240 ml Balance 600 ml 480 ml 240 ml Intake Oral 600 ml 480 ml 240 ml IV Total 0 ml # Voids 2 1 2 # Bowel Movements 0 0 0 Vital Signs Vital Signs Date Time Temp Pulse Resp B/P Pulse Ox O2 Delivery O2 Flow Rate FiO2 03/15/17 05:57 16 03/14/17 20:00 98.2 70 20 138/87 98 CBC/BMP: 03/15/17 0435 03/15/17 0435 Lab Results Laboratory Tests Test 03/14/17 03/15/17 09:30 04:35 White Blood Count 5.2 TH/MM3 6.3 TH/MM3 Red Blood Count 4.60 MIL/MM3 4.31 MIL/MM3 Hemoglobin 13.4 GM/DL 13.0 GM/DL Hematocrit 40.8 % 38.3 % Mean Corpuscular Volume 88.7 FL 89.0 FL Mean Corpuscular Hemoglobin 29.0 PG 30.2 PG Mean Corpuscular Hemoglobin 32.7 % 33.9 % Concent Red Cell Distribution Width 12.6 % 12.6 % Platelet Count 273 TH/MM3 255 TH/MM3 Mean Platelet Volume 7.7 FL 7.9 FL Neutrophils (%) (Auto) 75.8 % 60.9 % Lymphocytes (%) (Auto) 20.0 % 30.0 % Monocytes (%) (Auto) 1.9 % 6.4 % Eosinophils (%) (Auto) 2.1 % 2.4 % Basophils (%) (Auto) 0.2 % 0.3 % Neutrophils # (Auto) 4.0 TH/MM3 3.8 TH/MM3 Lymphocytes # (Auto) 1.0 TH/MM3 1.9 TH/MM3 Monocytes # (Auto) 0.1 TH/MM3 0.4 TH/MM3 Eosinophils # (Auto) 0.1 TH/MM3 0.2 TH/MM3 Basophils # (Auto) 0.0 TH/MM3 0.0 TH/MM3 CBC Comment DIFF FINAL DIFF FINAL Differential Comment Sodium Level 133 MEQ/L 135 MEQ/L Potassium Level 3.9 MEQ/L 4.2 MEQ/L Chloride Level 94 MEQ/L 96 MEQ/L Carbon Dioxide Level 29.8 MEQ/L 29.1 MEQ/L Anion Gap 9 MEQ/L 10 MEQ/L Blood Urea Nitrogen 9 MG/DL 15 MG/DL Creatinine 0.72 MG/DL 0.71 MG/DL Estimat Glomerular Filtration 84 ML/MIN 85 ML/MIN Rate Random Glucose 141 MG/DL 92 MG/DL Calcium Level 9.1 MG/DL 8.7 MG/DL Total Bilirubin 0.3 MG/DL 0.3 MG/DL Aspartate Amino Transf 18 U/L 16 U/L (AST/SGOT) Alanine Aminotransferase 28 U/L 25 U/L (ALT/SGPT) Alkaline Phosphatase 125 U/L 115 U/L Total Protein 7.5 GM/DL 7.1 GM/DL Albumin 3.4 GM/DL 3.1 GM/DL Physical Exam General General Appearance: Well Nourished, No Acute Distress, Comfortable Eyes Eye Exam: Pupils Equal, Pupils Reactive, Sclera White, Extraocular Movement Intact Ears & Nose Ears & Nose Exam: Nasal Mucosa [place] Throat Throat Exam: Oral Mucosa [place] & Moist, Oral Pharynx Normal Neck Neck Exam: Neck Supple, Trachea Midline Pulmonary Resp Exam: Breath Sounds Equal, Poor Inspiratory Effort (low volumes, smoker) Cardiology CV Exam: Regular Gastrointestinal/Abdomen GI Exam: Soft, Non-Tender, Bowel Sounds Present, Non-Distended Musculoskeletal MS Exam: Joints Intact Integumentary Skin Exam: Warm, Dry Extremeties Extremities Exam: No Edema, Pedal Pulses Palpable, Trace Edema Neurologic Neuro Exam: Alert, Awake, Speech Clear, Estimator Lumber Equal VTE Prophylaxis VTE Prophylaxis Meds: Lovenox Assessment/Plan Problem List: (1) Fracture of distal end of left tibia (2) Edema of left foot (3) Edema of left ankle (4) Fracture of distal fibula (5) History of CVA (cerebrovascular accident) (6) Hyponatremia (7) Depression (8) HTN (hypertension) (9) Acute renal injury (10) Major neurocognitive disorder Assessment/Plan 67-year-old female who came to the emergency room complaining of left foot swelling and pain, questionable history of recent cellulitis. Denies any actual injury. Imaging studies completed, was noted with fracture of the distal tib and fib. Also positive for linear nondisplaced fracture to the lateral base of the distal phalanx of the first ray. Was evaluated by orthopedic surgeon S/P Left lower extremity open reduction and internal fixation of distal tibial pilon fracture with close reduction of distal fibula fracture 02/27 -Appreciate orthopedic input Continue with postoperative orthopedic care -Questionable history recent cellulitis, completed Ancef postoperatively -Pain management -Lovenox for DVT prophylaxis -Physical therapy per orthopedic recommendations Hyponatremia, etiology unclear- sodium better Acute renal injury, possibly secondary to dehydration- Resolved Avoid nephrotoxic agent History of CVA -Continue home medication Hypertension, stable -Continue home medical Lipidemia, stable Continue with home medication Anxiety and depression Continue with home medication Cognitive deficits, possibly secondary to CVA which is decision making and subsequent placement. Patient refusing to go to SNF. [facility] to go to [facility] due to not being able to meet her needs -appreciate psych input, pt. with poss. undiagnosed cognitive impairment most probably related with CVA highly suspected. Since the patient is unable to express the reason of her hospitalization, is unable to verbalize a clear understanding and appreciation of current medical problems, she has unrealistic expectations about her prognosis. Per psyche, she does not have decision- making capacity to participate in discharge planning at this moment. She can continue Lexapro 10 mg for depression. Agree 100% with the involvement of palliative care in this case to determining who will be the surrogated decision maker for the patient or health care by proxy. -Palliative care input appreciated. Palliative care spoke to pt's mother, she is proxy Patient has been cleared for discharge, placement has been an issue. Multiple facilities have been asked to evaluate patient and have denied her Boyfriend was going to take her home, however CM found out that he is homeless Check CBC with diff CMP in AM. D/W RN D/W patient. Discussed Condition with: Patient Problem Qualifiers (1) Fracture of distal end of left tibia: (2) Fracture of distal fibula: (3) Depression: Qualified Code: F32.9 - Depression, unspecified depression type (4) HTN (hypertension): Qualified Code: I10 - Essential hypertension Jatinder Mata MD Mar 15, 2017 08:41
[2017-03-15] MEDS: SODIUM CHLORIDE 0.9% FLUSH 10 ML FLUSH IV FLUSH SCH ×2 (09:00→21:00)
[2017-03-15] MEDS: NICOTINE 21 MG/24 HR PATCH T-DERMAL SCH (09:33)
[2017-03-15] MEDS: ATENOLOL 25 MG TAB PO SCH ×3 (09:34→18:00)
[2017-03-15] MEDS: amLODIPine BESYLATE 5 MG TAB PO SCH (09:34)
[2017-03-15] MEDS: ESCITALOPRAM OXALATE 10 MG TAB PO SCH (09:34)
[2017-03-15] MEDS: cloNIDine HCL 0.1 MG TAB PO SCH ×2 (09:34→21:35)
[2017-03-15] MEDS: GABAPENTIN 100 MG CAP PO SCH ×3 (09:34→18:00)
[2017-03-15] MEDS: MAGNESIUM HYDROXIDE SUSP 30 ML CUP PO SCH (09:34)
[2017-03-15] MEDS: DOCUSATE SODIUM 50 MG/SENNA 8.6 MG TAB PO SCH ×2 (09:34→21:35)
[2017-03-15] MEDS: MULTIVITAMINS/MINERALS THERAPEUTIC TAB PO SCH (09:34)
[2017-03-15 20:00] VITALS: BP 137/84; PULSE 63; RESP 20; TEMP 97.4; O2SAT 96
[2017-03-15] MEDS: ATORVASTATIN 10 MG TAB PO SCH (21:35)
[2017-03-15] MEDS: REMOVE OLD PATCH T-DERMAL SCH (21:36)
[2017-03-16] MEDS: ACETAMINOPHEN/HYDROcodone 325 MG/5 MG TAB PO PRN ×4 (00:05→18:02)
[2017-03-16] MEDS: diphenhydrAMINE HCL 25 MG CAP PO PRN ×2 (00:05→20:30)
[2017-03-16] MEDS: LACTATED RINGER'S 1000 ML INJ 1,000 ML IV SCH (01:11)
[2017-03-16 05:14] LABS: AUTOMATED NEUTROPHIL # 3.6 TH/MM3 (1.8-7.7); BASOPHIL % 0.4 % (0.0-2.0); EOSINOPHIL # 0.1 TH/MM3 (0-0.4); EOSINOPHIL % 2.4 % (0.0-4.0); HEMATOCRIT 38.3 % (35.0-46.0); HEMO FLAGS DIFF FINAL; LYMPH % 33.5 % (9.0-44.0); MEAN CELL VOLUME 88.3 FL (80.0-100.0); MEAN CORPUSCULAR HEMOGLOBIN 29.2 PG (27.0-34.0); MONO % 4.8 % (0.0-8.0); NEUT % 58.9 % (16.0-70.0); PLATELET COUNT 287 TH/MM3 (150-450); RED BLOOD COUNT 4.34 MIL/MM3 (4.00-5.30); RED CELL DISTRIBUTION WIDTH 12.2 % (11.6-17.2)
[2017-03-16 05:22] LABS: CHLORIDE 93 MEQ/L (98-107); POTASSIUM 3.9 MEQ/L (3.5-5.1); SODIUM (NA) 133 MEQ/L (136-145)
[2017-03-16 05:27] LABS: ANION GAP 11 MEQ/L (5-15); BICARBONATE 29.1 MEQ/L (21.0-32.0); BLOOD UREA NITROGEN 16 MG/DL (7-18)
[2017-03-16 05:30] LABS: ALT (GPT) 25 U/L (10-53); AST (GOT) 16 U/L (15-37); GLOMERULAR FILTRATION RATE 88 ML/MIN (>89)
[2017-03-16 05:32] LABS: ALKALINE PHOSPHATASE 122 U/L (45-117); TOTAL BILIRUBIN ADULT 0.3 MG/DL (0.2-1.0)
[2017-03-16] MEDS: ALPRAZolam 1 MG TAB PO PRN ×3 (06:51→18:01)
[2017-03-16 08:00] VITALS: BP 121/83; PULSE 61; RESP 18; TEMP 96.8; O2SAT 98
[2017-03-16] MEDS: SODIUM CHLORIDE 0.9% FLUSH 10 ML FLUSH IV FLUSH SCH ×3 (09:00→21:00)
[2017-03-16] MEDS: GABAPENTIN 100 MG CAP PO SCH ×3 (09:45→17:50)
[2017-03-16] MEDS: ESCITALOPRAM OXALATE 10 MG TAB PO SCH (09:45)
[2017-03-16] MEDS: DOCUSATE SODIUM 50 MG/SENNA 8.6 MG TAB PO SCH ×2 (09:45→20:30)
[2017-03-16] MEDS: ATENOLOL 25 MG TAB PO SCH ×3 (09:45→17:51)
[2017-03-16] MEDS: MULTIVITAMINS/MINERALS THERAPEUTIC TAB PO SCH (09:45)
[2017-03-16] MEDS: cloNIDine HCL 0.1 MG TAB PO SCH ×2 (09:46→20:30)
[2017-03-16] MEDS: MAGNESIUM HYDROXIDE SUSP 30 ML CUP PO SCH (09:46)
[2017-03-16] MEDS: NICOTINE 21 MG/24 HR PATCH T-DERMAL SCH (09:47)
[2017-03-16] MEDS: amLODIPine BESYLATE 5 MG TAB PO SCH (09:47)
[2017-03-16 12:15] VITALS: BP 115/82; PULSE 62; RESP 18
[2017-03-16 17:24] VITALS: BP 137/92; PULSE 64; RESP 18
[2017-03-16 20:00] VITALS: BP 122/89; PULSE 62; RESP 20; TEMP 97.7; O2SAT 98
[2017-03-16] MEDS: ATORVASTATIN 10 MG TAB PO SCH (20:30)
[2017-03-16] MEDS: REMOVE OLD PATCH T-DERMAL SCH (20:31)
[2017-03-17] MEDS: ALPRAZolam 1 MG TAB PO PRN ×4 (00:03→21:35)
[2017-03-17] MEDS: ACETAMINOPHEN/HYDROcodone 325 MG/5 MG TAB PO PRN ×4 (00:04→20:21)
[2017-03-17] MEDS: LACTATED RINGER'S 1000 ML INJ 1,000 ML IV SCH (01:15)
[2017-03-17 05:09] LABS: AUTOMATED NEUTROPHIL # 4.6 TH/MM3 (1.8-7.7); BASOPHIL % 0.4 % (0.0-2.0); EOSINOPHIL # 0.2 TH/MM3 (0-0.4); EOSINOPHIL % 2.4 % (0.0-4.0); HEMO FLAGS DIFF FINAL; LYMPH % 30.1 % (9.0-44.0); LYMPHOCYTE # 2.2 TH/MM3 (1.0-4.8); MEAN CELL VOLUME 87.6 FL (80.0-100.0); MEAN CORPUSCULAR HEMOGLOBIN 29.9 PG (27.0-34.0); MEAN CORPUSCULAR HGB CONC 34.1 % (32.0-36.0); MONO % 4.9 % (0.0-8.0); NEUT % 62.2 % (16.0-70.0); PLATELET COUNT 311 TH/MM3 (150-450); RED BLOOD COUNT 4.34 MIL/MM3 (4.00-5.30); RED CELL DISTRIBUTION WIDTH 11.6 % (11.6-17.2); WHITE BLOOD COUNT 7.4 TH/MM3 (4.0-11.0)
[2017-03-17 05:25] LABS: CHLORIDE 98 MEQ/L (98-107); POTASSIUM 4.1 MEQ/L (3.5-5.1); SODIUM (NA) 134 MEQ/L (136-145)
[2017-03-17 05:29] LABS: ANION GAP 9 MEQ/L (5-15); BICARBONATE 27.5 MEQ/L (21.0-32.0); BLOOD UREA NITROGEN 17 MG/DL (7-18)
[2017-03-17 05:32] LABS: ALT (GPT) 29 U/L (10-53); AST (GOT) 17 U/L (15-37); GLOMERULAR FILTRATION RATE 79 ML/MIN (>89)
[2017-03-17 05:34] LABS: TOTAL BILIRUBIN ADULT 0.4 MG/DL (0.2-1.0)
[2017-03-17 05:35] LABS: ALKALINE PHOSPHATASE 133 U/L (45-117)
[2017-03-17 08:00] VITALS: BP 99/67; PULSE 60; RESP 18; TEMP 97.6; O2SAT 100
--- NOTE | 2017-03-17 08:23 | HHI.PR ---
Subjective History of Present Illness Patient feel better no other issue. mild low sodium will monitor...better. waiting for placement. Review of Systems Constitutional Constitutional: Fatigue, Weakness Vitals/Results Intake & Output 03/16/17 03/16/17 03/17/17 15:00 23:00 07:00 Intake Total 240 ml 960 ml 360 ml Output Total 1 ml Balance 240 ml 959 ml 360 ml Intake Oral 240 ml 960 ml 360 ml Stool Total 1 ml # Voids 7 3 # Bowel Movements 1 Vital Signs Vital Signs Date Time Temp Pulse Resp B/P Pulse Ox O2 Delivery O2 Flow Rate FiO2 03/16/17 20:00 97.7 62 20 122/89 98 03/16/17 18:49 18 03/16/17 17:24 64 18 137/92 03/16/17 12:15 62 18 115/82 CBC/BMP: 03/17/17 0425 03/17/17 0425 Lab Results Laboratory Tests Test 03/17/17 04:25 White Blood Count 7.4 TH/MM3 Red Blood Count 4.34 MIL/MM3 Hemoglobin 13.0 GM/DL Hematocrit 38.0 % Mean Corpuscular Volume 87.6 FL Mean Corpuscular Hemoglobin 29.9 PG Mean Corpuscular Hemoglobin 34.1 % Concent Red Cell Distribution Width 11.6 % Platelet Count 311 TH/MM3 Mean Platelet Volume 8.0 FL Neutrophils (%) (Auto) 62.2 % Lymphocytes (%) (Auto) 30.1 % Monocytes (%) (Auto) 4.9 % Eosinophils (%) (Auto) 2.4 % Basophils (%) (Auto) 0.4 % Neutrophils # (Auto) 4.6 TH/MM3 Lymphocytes # (Auto) 2.2 TH/MM3 Monocytes # (Auto) 0.4 TH/MM3 Eosinophils # (Auto) 0.2 TH/MM3 Basophils # (Auto) 0.0 TH/MM3 CBC Comment DIFF FINAL Differential Comment Sodium Level 134 MEQ/L Potassium Level 4.1 MEQ/L Chloride Level 98 MEQ/L Carbon Dioxide Level 27.5 MEQ/L Anion Gap 9 MEQ/L Blood Urea Nitrogen 17 MG/DL Creatinine 0.76 MG/DL Estimat Glomerular Filtration 79 ML/MIN Rate Random Glucose 87 MG/DL Calcium Level 8.8 MG/DL Total Bilirubin 0.4 MG/DL Aspartate Amino Transf 17 U/L (AST/SGOT) Alanine Aminotransferase 29 U/L (ALT/SGPT) Alkaline Phosphatase 133 U/L Total Protein 7.4 GM/DL Albumin 3.4 GM/DL Physical Exam General General Appearance: Well Nourished, No Acute Distress, Comfortable Eyes Eye Exam: Pupils Equal, Pupils Reactive, Sclera White, Extraocular Movement Intact Ears & Nose Ears & Nose Exam: Nasal Mucosa [place] Throat Throat Exam: Oral Mucosa [place] & Moist, Oral Pharynx Normal Neck Neck Exam: Neck Supple, Trachea Midline Pulmonary Resp Exam: Breath Sounds Equal, Poor Inspiratory Effort (low volumes, smoker) Cardiology CV Exam: Regular Gastrointestinal/Abdomen GI Exam: Soft, Non-Tender, Bowel Sounds Present, Non-Distended Musculoskeletal MS Exam: Joints Intact Integumentary Skin Exam: Warm, Dry Extremeties Extremities Exam: No Edema, Pedal Pulses Palpable, Trace Edema Neurologic Neuro Exam: Alert, Awake, Speech Clear, Activity Specialist Equal VTE Prophylaxis VTE Prophylaxis Meds: Lovenox Assessment/Plan Problem List: (1) Fracture of distal end of left tibia (2) Edema of left foot (3) Edema of left ankle (4) Fracture of distal fibula (5) History of CVA (cerebrovascular accident) (6) Hyponatremia (7) Depression (8) HTN (hypertension) (9) Acute renal injury (10) Major neurocognitive disorder Assessment/Plan 67-year-old female who came to the emergency room complaining of left foot swelling and pain, questionable history of recent cellulitis. Denies any actual injury. Imaging studies completed, was noted with fracture of the distal tib and fib. Also positive for linear nondisplaced fracture to the lateral base of the distal phalanx of the first ray. Was evaluated by orthopedic surgeon S/P Left lower extremity open reduction and internal fixation of distal tibial pilon fracture with close reduction of distal fibula fracture 02/27/17 -Appreciate orthopedic input Continue with postoperative orthopedic care -Questionable history recent cellulitis, completed Ancef postoperatively -Pain management -Lovenox for DVT prophylaxis -Physical therapy per orthopedic recommendations Hyponatremia, etiology unclear- sodium better Acute renal injury, possibly secondary to dehydration- Resolved Avoid nephrotoxic agent History of CVA -Continue home medication Hypertension, stable -Continue home medical Lipidemia, stable Continue with home medication Anxiety and depression Continue with home medication Cognitive deficits, possibly secondary to CVA which is decision making and subsequent placement. Patient refusing to go to SNF. Unable to go to [facility] due to not being able to meet her needs -appreciate psych input, pt. with poss. undiagnosed cognitive impairment most probably related with CVA highly suspected. Since the patient is unable to express the reason of her hospitalization, is unable to verbalize a clear understanding and appreciation of current medical problems, she has unrealistic expectations about her prognosis. Per psyche, she does not have decision- making capacity to participate in discharge planning at this moment. She can continue Lexapro 10 mg for depression. Agree 100% with the involvement of palliative care in this case to determining who will be the surrogated decision maker for the patient or health care by proxy. -Palliative care input appreciated. Palliative care spoke to pt's mother, she is proxy Patient has been cleared for discharge, placement has been an issue. Multiple facilities have been asked to evaluate patient and have denied her Boyfriend was going to take her home, however CM found out that he is homeless Check CBC with diff CMP in AM. D/W patient. Discussed Condition with: Patient Problem Qualifiers (1) Fracture of distal end of left tibia: (2) Fracture of distal fibula: (3) Depression: Qualified Code: F32.9 - Depression, unspecified depression type (4) HTN (hypertension): Qualified Code: I10 - Essential hypertension Jatinder Mata MD Mar 17, 2017 08:23
[2017-03-17] MEDS: GABAPENTIN 100 MG CAP PO SCH ×3 (08:32→17:12)
[2017-03-17] MEDS: NICOTINE 21 MG/24 HR PATCH T-DERMAL SCH (08:33)
[2017-03-17] MEDS: DOCUSATE SODIUM 50 MG/SENNA 8.6 MG TAB PO SCH ×2 (08:33→20:17)
[2017-03-17] MEDS: MAGNESIUM HYDROXIDE SUSP 30 ML CUP PO SCH (08:33)
[2017-03-17] MEDS: ESCITALOPRAM OXALATE 10 MG TAB PO SCH (08:33)
[2017-03-17] MEDS: MULTIVITAMINS/MINERALS THERAPEUTIC TAB PO SCH (08:33)
[2017-03-17] MEDS: SODIUM CHLORIDE 0.9% FLUSH 10 ML FLUSH IV FLUSH SCH ×2 (08:39→20:35)
[2017-03-17] MEDS: cloNIDine HCL 0.1 MG TAB PO SCH ×2 (08:41→20:17)
[2017-03-17 09:27] VITALS: BP 120/81; PULSE 66; RESP 18; TEMP 97.8
[2017-03-17] MEDS: amLODIPine BESYLATE 5 MG TAB PO SCH (09:28)
[2017-03-17] MEDS: ATENOLOL 25 MG TAB PO SCH ×3 (09:28→17:12)
[2017-03-17 12:00] VITALS: BP 108/81; PULSE 69; RESP 18
[2017-03-17 20:00] VITALS: BP 180/101; PULSE 67; RESP 20; TEMP 97.2; O2SAT 97
[2017-03-17] MEDS: ATORVASTATIN 10 MG TAB PO SCH (20:17)
[2017-03-17] MEDS: REMOVE OLD PATCH T-DERMAL SCH (20:18)
[2017-03-18] MEDS: LACTATED RINGER'S 1000 ML INJ 1,000 ML IV SCH (01:15)
[2017-03-18 06:28] LABS: AUTOMATED NEUTROPHIL # 4.4 TH/MM3 (1.8-7.7); BASOPHIL % 0.5 % (0.0-2.0); EOSINOPHIL # 0.2 TH/MM3 (0-0.4); EOSINOPHIL % 2.4 % (0.0-4.0); HEMATOCRIT 39.5 % (35.0-46.0); HEMO FLAGS DIFF FINAL; LYMPH % 25.6 % (9.0-44.0); LYMPHOCYTE # 1.7 TH/MM3 (1.0-4.8); MEAN CELL VOLUME 88.1 FL (80.0-100.0); MEAN CORPUSCULAR HEMOGLOBIN 29.6 PG (27.0-34.0); MEAN CORPUSCULAR HGB CONC 33.5 % (32.0-36.0); MONO % 6.8 % (0.0-8.0); NEUT % 64.7 % (16.0-70.0); PLATELET COUNT 332 TH/MM3 (150-450); RED BLOOD COUNT 4.48 MIL/MM3 (4.00-5.30); RED CELL DISTRIBUTION WIDTH 11.8 % (11.6-17.2); WHITE BLOOD COUNT 6.8 TH/MM3 (4.0-11.0)
[2017-03-18 06:39] LABS: CHLORIDE 99 MEQ/L (98-107); SODIUM (NA) 135 MEQ/L (136-145)
[2017-03-18 06:44] LABS: ANION GAP 11 MEQ/L (5-15); BICARBONATE 25.4 MEQ/L (21.0-32.0)
[2017-03-18 06:45] LABS: BLOOD UREA NITROGEN 13 MG/DL (7-18)
[2017-03-18 06:47] LABS: ALT (GPT) 29 U/L (10-53); AST (GOT) 17 U/L (15-37); GLOMERULAR FILTRATION RATE 91 ML/MIN (>89)
[2017-03-18 06:49] LABS: TOTAL BILIRUBIN ADULT 0.4 MG/DL (0.2-1.0)
[2017-03-18 06:50] LABS: ALKALINE PHOSPHATASE 130 U/L (45-117)
[2017-03-18 08:00] VITALS: BP 125/85; PULSE 72; RESP 18; TEMP 97.6; O2SAT 97
[2017-03-18] MEDS: SODIUM CHLORIDE 0.9% FLUSH 10 ML FLUSH IV FLUSH SCH ×2 (09:00→20:58)
[2017-03-18] MEDS: MAGNESIUM HYDROXIDE SUSP 30 ML CUP PO SCH (09:00)
[2017-03-18] MEDS: MULTIVITAMINS/MINERALS THERAPEUTIC TAB PO SCH (09:02)
[2017-03-18] MEDS: NICOTINE 21 MG/24 HR PATCH T-DERMAL SCH (09:02)
[2017-03-18] MEDS: DOCUSATE SODIUM 50 MG/SENNA 8.6 MG TAB PO SCH ×2 (09:02→20:28)
[2017-03-18] MEDS: ATENOLOL 25 MG TAB PO SCH ×3 (09:02→16:12)
[2017-03-18] MEDS: ESCITALOPRAM OXALATE 10 MG TAB PO SCH (09:02)
[2017-03-18] MEDS: cloNIDine HCL 0.1 MG TAB PO SCH ×2 (09:02→20:28)
[2017-03-18] MEDS: GABAPENTIN 100 MG CAP PO SCH ×3 (09:03→16:12)
[2017-03-18] MEDS: amLODIPine BESYLATE 5 MG TAB PO SCH (09:03)
[2017-03-18] MEDS: ACETAMINOPHEN/HYDROcodone 325 MG/5 MG TAB PO PRN ×3 (09:03→22:57)
--- NOTE | 2017-03-18 09:17 | HHI.PR ---
Subjective History of Present Illness Patient feel better no other issue. mild low sodium will monitor...better. waiting for placement. d/w RN Niyah. Review of Systems Constitutional Constitutional: Fatigue, Weakness Vitals/Results Intake & Output 03/17/17 03/17/17 03/18/17 15:00 23:00 07:00 Intake Total 780 ml 240 ml 240 ml Balance 780 ml 240 ml 240 ml Intake Oral 780 ml 240 ml 240 ml # Voids 3 2 2 # Bowel Movements 0 Vital Signs Vital Signs Date Time Temp Pulse Resp B/P Pulse Ox O2 Delivery O2 Flow Rate FiO2 03/18/17 08:00 97.6 72 18 125/85 97 03/17/17 21:21 16 03/17/17 20:00 97.2 67 20 180/101 97 03/17/17 12:00 69 18 108/81 03/17/17 09:27 97.8 66 18 120/81 CBC/BMP: 03/18/17 0550 03/18/17 0550 Lab Results Laboratory Tests Test 03/18/17 05:50 White Blood Count 6.8 TH/MM3 Red Blood Count 4.48 MIL/MM3 Hemoglobin 13.2 GM/DL Hematocrit 39.5 % Mean Corpuscular Volume 88.1 FL Mean Corpuscular Hemoglobin 29.6 PG Mean Corpuscular Hemoglobin 33.5 % Concent Red Cell Distribution Width 11.8 % Platelet Count 332 TH/MM3 Mean Platelet Volume 8.0 FL Neutrophils (%) (Auto) 64.7 % Lymphocytes (%) (Auto) 25.6 % Monocytes (%) (Auto) 6.8 % Eosinophils (%) (Auto) 2.4 % Basophils (%) (Auto) 0.5 % Neutrophils # (Auto) 4.4 TH/MM3 Lymphocytes # (Auto) 1.7 TH/MM3 Monocytes # (Auto) 0.5 TH/MM3 Eosinophils # (Auto) 0.2 TH/MM3 Basophils # (Auto) 0.0 TH/MM3 CBC Comment DIFF FINAL Differential Comment Sodium Level 135 MEQ/L Potassium Level 4.0 MEQ/L Chloride Level 99 MEQ/L Carbon Dioxide Level 25.4 MEQ/L Anion Gap 11 MEQ/L Blood Urea Nitrogen 13 MG/DL Creatinine 0.67 MG/DL Estimat Glomerular Filtration 91 ML/MIN Rate Random Glucose 94 MG/DL Calcium Level 9.0 MG/DL Total Bilirubin 0.4 MG/DL Aspartate Amino Transf 17 U/L (AST/SGOT) Alanine Aminotransferase 29 U/L (ALT/SGPT) Alkaline Phosphatase 130 U/L Total Protein 7.5 GM/DL Albumin 3.5 GM/DL Physical Exam General General Appearance: Well Nourished, No Acute Distress, Comfortable Eyes Eye Exam: Pupils Equal, Pupils Reactive, Sclera White, Extraocular Movement Intact Ears & Nose Ears & Nose Exam: Nasal Mucosa [place] Throat Throat Exam: Oral Mucosa [place] & Moist, Oral Pharynx Normal Neck Neck Exam: Neck Supple, Trachea Midline Pulmonary Resp Exam: Breath Sounds Equal, Poor Inspiratory Effort (low volumes, smoker) Cardiology CV Exam: Regular Gastrointestinal/Abdomen GI Exam: Soft, Non-Tender, Bowel Sounds Present, Non-Distended Musculoskeletal MS Exam: Joints Intact Integumentary Skin Exam: Warm, Dry Extremeties Extremities Exam: No Edema, Pedal Pulses Palpable, Trace Edema Neurologic Neuro Exam: Alert, Awake, Speech Clear, Camp Manager Equal VTE Prophylaxis VTE Prophylaxis Meds: Lovenox Assessment/Plan Problem List: (1) Fracture of distal end of left tibia (2) Edema of left foot (3) Edema of left ankle (4) Fracture of distal fibula (5) History of CVA (cerebrovascular accident) (6) Hyponatremia (7) Depression (8) HTN (hypertension) (9) Acute renal injury (10) Major neurocognitive disorder Assessment/Plan 67-year-old female who came to the emergency room complaining of left foot swelling and pain, questionable history of recent cellulitis. Denies any actual injury. Imaging studies completed, was noted with fracture of the distal tib and fib. Also positive for linear nondisplaced fracture to the lateral base of the distal phalanx of the first ray. Was evaluated by orthopedic surgeon S/P Left lower extremity open reduction and internal fixation of distal tibial pilon fracture with close reduction of distal fibula fracture 02/27/17 -Appreciate orthopedic input Continue with postoperative orthopedic care -Questionable history recent cellulitis, completed Ancef postoperatively -Pain management -Lovenox for DVT prophylaxis -Physical therapy per orthopedic recommendations Hyponatremia, etiology unclear- sodium better Acute renal injury, possibly secondary to dehydration- Resolved Avoid nephrotoxic agent History of CVA -Continue home medication Hypertension, stable -Continue home medical Lipidemia, stable Continue with home medication Anxiety and depression Continue with home medication Cognitive deficits, possibly secondary to CVA which is decision making and subsequent placement. Patient refusing to go to SNF. Unable to go to [facility] due to not being able to meet her needs -appreciate psych input, pt. with poss. undiagnosed cognitive impairment most probably related with CVA highly suspected. Since the patient is unable to express the reason of her hospitalization, is unable to verbalize a clear understanding and appreciation of current medical problems, she has unrealistic expectations about her prognosis. Per psyche, she does not have decision- making capacity to participate in discharge planning at this moment. She can continue Lexapro 10 mg for depression. Agree 100% with the involvement of palliative care in this case to determining who will be the surrogated decision maker for the patient or health care by proxy. -Palliative care input appreciated. Palliative care spoke to pt's mother, she is proxy Patient has been cleared for discharge, placement has been an issue. Multiple facilities have been asked to evaluate patient and have denied her Boyfriend was going to take her home, however CM found out that he is homeless Check CBC with diff CMP in AM. D/W patient. Problem Qualifiers (1) Fracture of distal end of left tibia: (2) Fracture of distal fibula: (3) Depression: Qualified Code: F32.9 - Depression, unspecified depression type (4) HTN (hypertension): Qualified Code: I10 - Essential hypertension Jatinder Mata MD Mar 18, 2017 09:17
[2017-03-18] MEDS: ALPRAZolam 1 MG TAB PO PRN ×3 (10:07→22:12)
[2017-03-18 20:00] VITALS: BP 162/107; PULSE 68; RESP 21; TEMP 95.6; O2SAT 100
[2017-03-18] MEDS: ATORVASTATIN 10 MG TAB PO SCH (20:28)
[2017-03-18] MEDS: REMOVE OLD PATCH T-DERMAL SCH (21:00)
[2017-03-19] MEDS: LACTATED RINGER'S 1000 ML INJ 1,000 ML IV SCH (01:15)
[2017-03-19 06:02] LABS: AUTOMATED NEUTROPHIL # 4.1 TH/MM3 (1.8-7.7); BASOPHIL % 0.3 % (0.0-2.0); EOSINOPHIL # 0.2 TH/MM3 (0-0.4); EOSINOPHIL % 2.3 % (0.0-4.0); HEMATOCRIT 39.7 % (35.0-46.0); HEMO FLAGS DIFF FINAL; LYMPH % 34.8 % (9.0-44.0); LYMPHOCYTE # 2.6 TH/MM3 (1.0-4.8); MEAN CELL VOLUME 88.2 FL (80.0-100.0); MEAN CORPUSCULAR HEMOGLOBIN 29.6 PG (27.0-34.0); MEAN CORPUSCULAR HGB CONC 33.6 % (32.0-36.0); MONO % 6.8 % (0.0-8.0); NEUT % 55.8 % (16.0-70.0); PLATELET COUNT 336 TH/MM3 (150-450); RED CELL DISTRIBUTION WIDTH 11.9 % (11.6-17.2); WHITE BLOOD COUNT 7.4 TH/MM3 (4.0-11.0)
[2017-03-19] MEDS: ALPRAZolam 1 MG TAB PO PRN ×3 (06:02→19:02)
[2017-03-19 06:15] LABS: CHLORIDE 99 MEQ/L (98-107); POTASSIUM 3.8 MEQ/L (3.5-5.1); SODIUM (NA) 134 MEQ/L (136-145)
[2017-03-19 06:19] LABS: ANION GAP 7 MEQ/L (5-15); BICARBONATE 27.8 MEQ/L (21.0-32.0); BLOOD UREA NITROGEN 11 MG/DL (7-18)
[2017-03-19 06:22] LABS: ALT (GPT) 28 U/L (10-53); AST (GOT) 16 U/L (15-37); GLOMERULAR FILTRATION RATE 93 ML/MIN (>89)
[2017-03-19 06:23] LABS: TOTAL BILIRUBIN ADULT 0.4 MG/DL (0.2-1.0)
[2017-03-19 06:25] LABS: ALKALINE PHOSPHATASE 129 U/L (45-117)
[2017-03-19 08:00] VITALS: BP 120/91; PULSE 71; RESP 18; TEMP 96.3; O2SAT 97
--- NOTE | 2017-03-19 08:47 | HHI.PR ---
Subjective History of Present Illness Patient feel better no other issue. mild low sodium will monitor...better. waiting for placement. d/w DAVID Page Review of Systems Constitutional Constitutional: Fatigue, Weakness Vitals/Results Intake & Output 03/18/17 03/18/17 03/19/17 15:00 23:00 07:00 Intake Total 680 ml 720 ml 480 ml Output Total 600 ml 900 ml Balance 680 ml 120 ml -420 ml Intake Oral 680 ml 720 ml 480 ml Output Urine Total 600 ml 900 ml # Voids 3 # Bowel Movements 1 0 0 Vital Signs Vital Signs Date Time Temp Pulse Resp B/P Pulse Ox O2 Delivery O2 Flow Rate FiO2 03/18/17 23:57 16 03/18/17 20:00 95.6 68 21 162/107 100 CBC/BMP: 03/19/17 0545 03/19/17 0545 Lab Results Laboratory Tests Test 03/19/17 05:45 White Blood Count 7.4 TH/MM3 Red Blood Count 4.50 MIL/MM3 Hemoglobin 13.3 GM/DL Hematocrit 39.7 % Mean Corpuscular Volume 88.2 FL Mean Corpuscular Hemoglobin 29.6 PG Mean Corpuscular Hemoglobin 33.6 % Concent Red Cell Distribution Width 11.9 % Platelet Count 336 TH/MM3 Mean Platelet Volume 8.1 FL Neutrophils (%) (Auto) 55.8 % Lymphocytes (%) (Auto) 34.8 % Monocytes (%) (Auto) 6.8 % Eosinophils (%) (Auto) 2.3 % Basophils (%) (Auto) 0.3 % Neutrophils # (Auto) 4.1 TH/MM3 Lymphocytes # (Auto) 2.6 TH/MM3 Monocytes # (Auto) 0.5 TH/MM3 Eosinophils # (Auto) 0.2 TH/MM3 Basophils # (Auto) 0.0 TH/MM3 CBC Comment DIFF FINAL Differential Comment Sodium Level 134 MEQ/L Potassium Level 3.8 MEQ/L Chloride Level 99 MEQ/L Carbon Dioxide Level 27.8 MEQ/L Anion Gap 7 MEQ/L Blood Urea Nitrogen 11 MG/DL Creatinine 0.66 MG/DL Estimat Glomerular Filtration 93 ML/MIN Rate Random Glucose 85 MG/DL Calcium Level 8.7 MG/DL Total Bilirubin 0.4 MG/DL Aspartate Amino Transf 16 U/L (AST/SGOT) Alanine Aminotransferase 28 U/L (ALT/SGPT) Alkaline Phosphatase 129 U/L Total Protein 7.5 GM/DL Albumin 3.5 GM/DL Physical Exam General General Appearance: Well Nourished, No Acute Distress, Comfortable Eyes Eye Exam: Pupils Equal, Pupils Reactive, Sclera White, Extraocular Movement Intact Ears & Nose Ears & Nose Exam: Nasal Mucosa [place] Throat Throat Exam: Oral Mucosa [place] & Moist, Oral Pharynx Normal Neck Neck Exam: Neck Supple, Trachea Midline Pulmonary Resp Exam: Breath Sounds Equal, Poor Inspiratory Effort (low volumes, smoker) Cardiology CV Exam: Regular Gastrointestinal/Abdomen GI Exam: Soft, Non-Tender, Bowel Sounds Present, Non-Distended Musculoskeletal MS Exam: Joints Intact Integumentary Skin Exam: Warm, Dry Extremeties Extremities Exam: No Edema, Pedal Pulses Palpable, Trace Edema Neurologic Neuro Exam: Alert, Awake, Speech Clear, Account Analyst Equal VTE Prophylaxis VTE Prophylaxis Meds: Lovenox Assessment/Plan Problem List: (1) Fracture of distal end of left tibia (2) Edema of left foot (3) Edema of left ankle (4) Fracture of distal fibula (5) History of CVA (cerebrovascular accident) (6) Hyponatremia (7) Depression (8) HTN (hypertension) (9) Acute renal injury (10) Major neurocognitive disorder Assessment/Plan 67-year-old female who came to the emergency room complaining of left foot swelling and pain, questionable history of recent cellulitis. Denies any actual injury. Imaging studies completed, was noted with fracture of the distal tib and fib. Also positive for linear nondisplaced fracture to the lateral base of the distal phalanx of the first ray. Was evaluated by orthopedic surgeon S/P Left lower extremity open reduction and internal fixation of distal tibial pilon fracture with close reduction of distal fibula fracture 02/27/17 -Appreciate orthopedic input Continue with postoperative orthopedic care -Questionable history recent cellulitis, completed Ancef postoperatively -Pain management -Lovenox for DVT prophylaxis -Physical therapy per orthopedic recommendations Hyponatremia, etiology unclear- sodium better Acute renal injury, possibly secondary to dehydration- Resolved Avoid nephrotoxic agent History of CVA -Continue home medication Hypertension, stable -Continue home medical Lipidemia, stable Continue with home medication Anxiety and depression Continue with home medication Cognitive deficits, possibly secondary to CVA which is decision making and subsequent placement. Patient refusing to go to SNF. Unable to go to [facility] due to not being able to meet her needs -appreciate psych input, pt. with poss. undiagnosed cognitive impairment most probably related with CVA highly suspected. Since the patient is unable to express the reason of her hospitalization, is unable to verbalize a clear understanding and appreciation of current medical problems, she has unrealistic expectations about her prognosis. Per psyche, she does not have decision- making capacity to participate in discharge planning at this moment. She can continue Lexapro 10 mg for depression. Agree 100% with the involvement of palliative care in this case to determining who will be the surrogated decision maker for the patient or health care by proxy. -Palliative care input appreciated. Palliative care spoke to pt's mother, she is proxy Patient has been cleared for discharge, placement has been an issue. Multiple facilities have been asked to evaluate patient and have denied her Boyfriend was going to take her home, however CM found out that he is homeless Check CBC with diff CMP in AM. D/W patient. Problem Qualifiers (1) Fracture of distal end of left tibia: (2) Fracture of distal fibula: (3) Depression: Qualified Code: F32.9 - Depression, unspecified depression type (4) HTN (hypertension): Qualified Code: I10 - Essential hypertension Jatinder Mata MD Mar 19, 2017 08:47
[2017-03-19] MEDS: SODIUM CHLORIDE 0.9% FLUSH 10 ML FLUSH IV FLUSH SCH ×2 (09:00→21:00)
[2017-03-19] MEDS: MULTIVITAMINS/MINERALS THERAPEUTIC TAB PO SCH (09:04)
[2017-03-19] MEDS: MAGNESIUM HYDROXIDE SUSP 30 ML CUP PO SCH (09:04)
[2017-03-19] MEDS: cloNIDine HCL 0.1 MG TAB PO SCH ×2 (09:04→21:25)
[2017-03-19] MEDS: ESCITALOPRAM OXALATE 10 MG TAB PO SCH (09:04)
[2017-03-19] MEDS: GABAPENTIN 100 MG CAP PO SCH ×3 (09:05→18:41)
[2017-03-19] MEDS: ACETAMINOPHEN/HYDROcodone 325 MG/5 MG TAB PO PRN ×3 (09:05→21:26)
[2017-03-19] MEDS: ATENOLOL 25 MG TAB PO SCH ×3 (09:05→18:41)
[2017-03-19] MEDS: amLODIPine BESYLATE 5 MG TAB PO SCH (09:05)
[2017-03-19] MEDS: DOCUSATE SODIUM 50 MG/SENNA 8.6 MG TAB PO SCH ×2 (09:06→21:25)
[2017-03-19] MEDS: NICOTINE 21 MG/24 HR PATCH T-DERMAL SCH (09:06)
--- NOTE | 2017-03-19 16:46 | PD.ORT.PN ---
Objective Vitals Vital Signs Date Time Temp Pulse Resp B/P Pulse Ox O2 Delivery O2 Flow Rate FiO2 03/19/17 16:10 18 03/19/17 08:00 96.3 71 18 120/91 97 03/18/17 20:00 95.6 68 21 162/107 100 I/O 03/18/17 03/18/17 03/18/17 03/19/17 03/19/17 03/19/17 07:00 15:00 23:00 07:00 15:00 23:00 Intake Total 240 ml 680 ml 720 ml 480 ml 360 ml Output Total 600 ml 900 ml Balance 240 ml 680 ml 120 ml -420 ml 360 ml Intake Oral 240 ml 680 ml 720 ml 480 ml 360 ml Output Urine Total 600 ml 900 ml # Voids 2 3 # Bowel Movements 1 0 0 Result Diagram: 03/19/17 0545 03/19/17 0545 Procedures Left ankle ORIF Assessment & Plan Assessment and Plan Approx 3 weeks s/p: Left ankle ORIF (patient not seen in person today) 1. NWB on LLE The patient was transferred to [facility] [place] [facility]. I talked the nurse today and the patient is still painful. I recommenced a repeat x-ray (ordered), also I advised the nurse to assess the wound and if it looks good to go ahead and remove the sutures and apply steri-strips. I also gave an order for them to apply a fx boot. I recommend to coordinate this with the electronic calibration technician. f/u after the patient has been discharged from the hospital. We anticipate between 6-12 weeks of non-weight bearing from the time of surgery. If the patient is still in the hospital in three weeks, please call us. Jean-Claude Michel MD Mar 19, 2017 16:46
--- NOTE | 2017-03-19 18:31 | RADHPO ---
EXAM DATE/TIME: 03/19/2017 18:12 [facility] COMPARISON: ANKLE LEFT COMPLETE ([id number]), February 26, 2017, 15:49. ANKLE LEFT COMPLETE ([id number]), February 27, 2017, 10:56. INDICATIONS : Left ankle pain. MEDICAL HISTORY : Left ankle fracture SURGICAL HISTORY : ORIF left ankle ENCOUNTER: Subsequent ACUITY: 3 weeks PAIN SCORE: 3/10 LOCATION: Left ankle FINDINGS: Three view exam was performed of the left ankle. Patient has a cast. Plate and screws along the dista l tibia. Distal fibular fracture noted. Anatomic alignment. CONCLUSION: Internal fixation distal tibia. Fibular fracture also again seen. Felix Jaramillo MD on March 19, 2017 at 18:28 Board Certified Radiologist. This report was verified electronically.
[2017-03-19 20:00] VITALS: BP 142/101; PULSE 68; RESP 16; TEMP 96.6; O2SAT 99
[2017-03-19] MEDS: REMOVE OLD PATCH T-DERMAL SCH (21:00)
[2017-03-19] MEDS: ATORVASTATIN 10 MG TAB PO SCH (21:25)
[2017-03-20] MEDS: ALPRAZolam 1 MG TAB PO PRN ×4 (01:03→20:03)
[2017-03-20] MEDS: LACTATED RINGER'S 1000 ML INJ 1,000 ML IV SCH (01:04)
[2017-03-20 08:00] VITALS: BP 129/83; PULSE 65; RESP 20; TEMP 97.2; O2SAT 98
[2017-03-20 08:45] LABS: AUTOMATED NEUTROPHIL # 4.7 TH/MM3 (1.8-7.7); BASOPHIL # 0.1 TH/MM3 (0-0.2); BASOPHIL % 0.8 % (0.0-2.0); EOSINOPHIL # 0.1 TH/MM3 (0-0.4); EOSINOPHIL % 2.1 % (0.0-4.0); HEMATOCRIT 43.1 % (35.0-46.0); HEMO FLAGS DIFF FINAL; LYMPH % 24.5 % (9.0-44.0); LYMPHOCYTE # 1.7 TH/MM3 (1.0-4.8); MEAN CELL VOLUME 87.5 FL (80.0-100.0); MEAN CORPUSCULAR HEMOGLOBIN 29.2 PG (27.0-34.0); MEAN CORPUSCULAR HGB CONC 33.4 % (32.0-36.0); MONO % 6.4 % (0.0-8.0); NEUT % 66.2 % (16.0-70.0); PLATELET COUNT 411 TH/MM3 (150-450); RED BLOOD COUNT 4.92 MIL/MM3 (4.00-5.30); RED CELL DISTRIBUTION WIDTH 12.3 % (11.6-17.2); WHITE BLOOD COUNT 7.1 TH/MM3 (4.0-11.0)
[2017-03-20] MEDS: SODIUM CHLORIDE 0.9% FLUSH 10 ML FLUSH IV FLUSH SCH ×2 (08:51→21:00)
[2017-03-20] MEDS: MAGNESIUM HYDROXIDE SUSP 30 ML CUP PO SCH (08:51)
[2017-03-20] MEDS: DOCUSATE SODIUM 50 MG/SENNA 8.6 MG TAB PO SCH ×2 (08:52→20:03)
[2017-03-20] MEDS: ESCITALOPRAM OXALATE 10 MG TAB PO SCH (08:52)
[2017-03-20] MEDS: GABAPENTIN 100 MG CAP PO SCH ×3 (08:52→17:51)
[2017-03-20] MEDS: amLODIPine BESYLATE 5 MG TAB PO SCH (08:52)
[2017-03-20 08:53] LABS: CHLORIDE 97 MEQ/L (98-107); POTASSIUM 4.2 MEQ/L (3.5-5.1); SODIUM (NA) 134 MEQ/L (136-145)
[2017-03-20] MEDS: ATENOLOL 25 MG TAB PO SCH ×3 (08:53→17:51)
[2017-03-20] MEDS: MULTIVITAMINS/MINERALS THERAPEUTIC TAB PO SCH (08:53)
[2017-03-20] MEDS: cloNIDine HCL 0.1 MG TAB PO SCH ×2 (08:53→20:03)
[2017-03-20] MEDS: ACETAMINOPHEN/HYDROcodone 325 MG/5 MG TAB PO PRN ×3 (08:53→21:20)
[2017-03-20] MEDS: NICOTINE 21 MG/24 HR PATCH T-DERMAL SCH (08:53)
[2017-03-20 09:06] LABS: ALKALINE PHOSPHATASE 140 U/L (45-117); ALT (GPT) 30 U/L (10-53); ANION GAP 7 MEQ/L (5-15); AST (GOT) 16 U/L (15-37); BICARBONATE 30.1 MEQ/L (21.0-32.0); BLOOD UREA NITROGEN 10 MG/DL (7-18); GLOMERULAR FILTRATION RATE 82 ML/MIN (>89); TOTAL BILIRUBIN ADULT 0.6 MG/DL (0.2-1.0)
--- NOTE | 2017-03-20 11:28 | HHI.PR ---
Subjective History of Present Illness Patient feel better no other issue. mild low sodium will monitor. 134 today....better. waiting for placement. Review of Systems Constitutional Constitutional: Fatigue, Weakness Vitals/Results Intake & Output 03/19/17 03/19/17 03/20/17 15:00 23:00 07:00 Intake Total 360 ml 1320 ml 480 ml Output Total 1400 ml 400 ml Balance 360 ml -80 ml 80 ml Intake Oral 360 ml 1320 ml 480 ml Output Urine Total 1400 ml 400 ml # Voids 4 # Bowel Movements 0 0 Vital Signs Vital Signs Date Time Temp Pulse Resp B/P Pulse Ox O2 Delivery O2 Flow Rate FiO2 03/20/17 09:53 18 03/20/17 08:00 97.2 65 20 129/83 98 03/19/17 20:00 96.6 68 16 142/101 99 CBC/BMP: 03/20/17 0801 03/20/17 0801 Lab Results Laboratory Tests Test 03/20/17 08:01 White Blood Count 7.1 TH/MM3 Red Blood Count 4.92 MIL/MM3 Hemoglobin 14.4 GM/DL Hematocrit 43.1 % Mean Corpuscular Volume 87.5 FL Mean Corpuscular Hemoglobin 29.2 PG Mean Corpuscular Hemoglobin 33.4 % Concent Red Cell Distribution Width 12.3 % Platelet Count 411 TH/MM3 Mean Platelet Volume 8.1 FL Neutrophils (%) (Auto) 66.2 % Lymphocytes (%) (Auto) 24.5 % Monocytes (%) (Auto) 6.4 % Eosinophils (%) (Auto) 2.1 % Basophils (%) (Auto) 0.8 % Neutrophils # (Auto) 4.7 TH/MM3 Lymphocytes # (Auto) 1.7 TH/MM3 Monocytes # (Auto) 0.5 TH/MM3 Eosinophils # (Auto) 0.1 TH/MM3 Basophils # (Auto) 0.1 TH/MM3 CBC Comment DIFF FINAL Differential Comment Sodium Level 134 MEQ/L Potassium Level 4.2 MEQ/L Chloride Level 97 MEQ/L Carbon Dioxide Level 30.1 MEQ/L Anion Gap 7 MEQ/L Blood Urea Nitrogen 10 MG/DL Creatinine 0.73 MG/DL Estimat Glomerular Filtration 82 ML/MIN Rate Random Glucose 91 MG/DL Calcium Level 9.5 MG/DL Total Bilirubin 0.6 MG/DL Aspartate Amino Transf 16 U/L (AST/SGOT) Alanine Aminotransferase 30 U/L (ALT/SGPT) Alkaline Phosphatase 140 U/L Total Protein 8.2 GM/DL Albumin 3.8 GM/DL Physical Exam General General Appearance: Well Nourished, No Acute Distress, Comfortable Eyes Eye Exam: Pupils Equal, Pupils Reactive, Sclera White, Extraocular Movement Intact Ears & Nose Ears & Nose Exam: Nasal Mucosa [place] Throat Throat Exam: Oral Mucosa [place] & Moist, Oral Pharynx Normal Neck Neck Exam: Neck Supple, Trachea Midline Pulmonary Resp Exam: Breath Sounds Equal, Poor Inspiratory Effort (low volumes, smoker) Cardiology CV Exam: Regular Gastrointestinal/Abdomen GI Exam: Soft, Non-Tender, Bowel Sounds Present, Non-Distended Musculoskeletal MS Exam: Joints Intact Integumentary Skin Exam: Warm, Dry Extremeties Extremities Exam: No Edema, Pedal Pulses Palpable, Trace Edema Neurologic Neuro Exam: Alert, Awake, Speech Clear, Sewing Machine Bobbin Winder Equal VTE Prophylaxis VTE Prophylaxis Meds: Lovenox Assessment/Plan Problem List: (1) Fracture of distal end of left tibia (2) Edema of left foot (3) Edema of left ankle (4) Fracture of distal fibula (5) History of CVA (cerebrovascular accident) (6) Hyponatremia (7) Depression (8) HTN (hypertension) (9) Acute renal injury (10) Major neurocognitive disorder Assessment/Plan 67-year-old female who came to the emergency room complaining of left foot swelling and pain, questionable history of recent cellulitis. Denies any actual injury. Imaging studies completed, was noted with fracture of the distal tib and fib. Also positive for linear nondisplaced fracture to the lateral base of the distal phalanx of the first ray. Was evaluated by orthopedic surgeon S/P Left lower extremity open reduction and internal fixation of distal tibial pilon fracture with close reduction of distal fibula fracture 02/27/17 -Appreciate orthopedic input Continue with postoperative orthopedic care -Questionable history recent cellulitis, completed Ancef postoperatively -Pain management -Lovenox for DVT prophylaxis -Physical therapy per orthopedic recommendations Hyponatremia, etiology unclear- sodium better Acute renal injury, possibly secondary to dehydration- Resolved Avoid nephrotoxic agent History of CVA -Continue home medication Hypertension, stable -Continue home medical Lipidemia, stable Continue with home medication Anxiety and depression Continue with home medication Cognitive deficits, possibly secondary to CVA which is decision making and subsequent placement. Patient refusing to go to SNF. Unable to go to [facility] due to not being able to meet her needs -appreciate psych input, pt. with poss. undiagnosed cognitive impairment most probably related with CVA highly suspected. Since the patient is unable to express the reason of her hospitalization, is unable to verbalize a clear understanding and appreciation of current medical problems, she has unrealistic expectations about her prognosis. Per psyche, she does not have decision- making capacity to participate in discharge planning at this moment. She can continue Lexapro 10 mg for depression. Agree 100% with the involvement of palliative care in this case to determining who will be the surrogated decision maker for the patient or health care by proxy. -Palliative care input appreciated. Palliative care spoke to pt's mother, she is proxy Patient has been cleared for discharge, placement has been an issue. Multiple facilities have been asked to evaluate patient and have denied her Boyfriend was going to take her home, however CM found out that he is homeless Check CBC with diff CMP in AM. D/W patient. Problem Qualifiers (1) Fracture of distal end of left tibia: (2) Fracture of distal fibula: (3) Depression: Qualified Code: F32.9 - Depression, unspecified depression type (4) HTN (hypertension): Qualified Code: I10 - Essential hypertension Jatinder Mata MD Mar 20, 2017 11:28
[2017-03-20 20:00] VITALS: BP 156/101; PULSE 68; RESP 18; TEMP 97.8; O2SAT 99
[2017-03-20] MEDS: ATORVASTATIN 10 MG TAB PO SCH (20:03)
[2017-03-20] MEDS: REMOVE OLD PATCH T-DERMAL SCH (21:00)
[2017-03-20 22:00] VITALS: BP 140/90; PULSE 71; RESP 18; O2SAT 99
[2017-03-21] MEDS: LACTATED RINGER'S 1000 ML INJ 1,000 ML IV SCH ×2 (01:15→20:42)
[2017-03-21] MEDS: ALPRAZolam 1 MG TAB PO PRN ×3 (06:23→18:38)
[2017-03-21] MEDS: ACETAMINOPHEN/HYDROcodone 325 MG/5 MG TAB PO PRN ×3 (07:42→20:38)
[2017-03-21 08:00] VITALS: BP 131/90; PULSE 62; RESP 19; TEMP 97.6; O2SAT 96
[2017-03-21 08:49] LABS: AUTOMATED NEUTROPHIL # 3.8 TH/MM3 (1.8-7.7); BASOPHIL % 0.3 % (0.0-2.0); EOSINOPHIL # 0.2 TH/MM3 (0-0.4); EOSINOPHIL % 2.8 % (0.0-4.0); HEMATOCRIT 40.5 % (35.0-46.0); HEMO FLAGS DIFF FINAL; LYMPH % 27.2 % (9.0-44.0); LYMPHOCYTE # 1.6 TH/MM3 (1.0-4.8); MEAN CELL VOLUME 87.9 FL (80.0-100.0); MEAN CORPUSCULAR HEMOGLOBIN 29.8 PG (27.0-34.0); MEAN CORPUSCULAR HGB CONC 33.9 % (32.0-36.0); MONO % 7.3 % (0.0-8.0); NEUT % 62.4 % (16.0-70.0); PLATELET COUNT 389 TH/MM3 (150-450); RED BLOOD COUNT 4.61 MIL/MM3 (4.00-5.30)
[2017-03-21 08:57] LABS: CHLORIDE 95 MEQ/L (98-107); POTASSIUM 4.7 MEQ/L (3.5-5.1); SODIUM (NA) 133 MEQ/L (136-145)
[2017-03-21] MEDS: SODIUM CHLORIDE 0.9% FLUSH 10 ML FLUSH IV FLUSH SCH ×2 (09:00→20:07)
[2017-03-21 09:02] LABS: ANION GAP 8 MEQ/L (5-15); BICARBONATE 30.1 MEQ/L (21.0-32.0)
[2017-03-21 09:03] LABS: BLOOD UREA NITROGEN 11 MG/DL (7-18)
[2017-03-21 09:05] LABS: ALT (GPT) 28 U/L (10-53); AST (GOT) 17 U/L (15-37)
[2017-03-21 09:06] LABS: GLOMERULAR FILTRATION RATE 78 ML/MIN (>89)
[2017-03-21 09:07] LABS: TOTAL BILIRUBIN ADULT 0.5 MG/DL (0.2-1.0)
[2017-03-21 09:08] LABS: ALKALINE PHOSPHATASE 139 U/L (45-117)
[2017-03-21] MEDS: MAGNESIUM HYDROXIDE SUSP 30 ML CUP PO SCH (09:52)
[2017-03-21] MEDS: ATENOLOL 25 MG TAB PO SCH ×2 (09:53→13:55)
[2017-03-21] MEDS: NICOTINE 21 MG/24 HR PATCH T-DERMAL SCH (09:53)
[2017-03-21] MEDS: GABAPENTIN 100 MG CAP PO SCH ×3 (09:54→18:37)
[2017-03-21] MEDS: DOCUSATE SODIUM 50 MG/SENNA 8.6 MG TAB PO SCH ×2 (09:54→20:38)
[2017-03-21] MEDS: ESCITALOPRAM OXALATE 10 MG TAB PO SCH (09:54)
[2017-03-21] MEDS: cloNIDine HCL 0.1 MG TAB PO SCH ×2 (09:54→20:37)
[2017-03-21] MEDS: MULTIVITAMINS/MINERALS THERAPEUTIC TAB PO SCH (09:54)
[2017-03-21] MEDS: amLODIPine BESYLATE 5 MG TAB PO SCH (09:54)
[2017-03-21] MEDS ORDERED: PILL SPLITTER OTHER PRN (10:30)
[2017-03-21] MEDS: ATENOLOL 50 MG TAB PO SCH (18:40)
[2017-03-21 20:00] VITALS: BP 148/95; PULSE 62; RESP 19; TEMP 97.9; O2SAT 100
[2017-03-21] MEDS: ATORVASTATIN 10 MG TAB PO SCH (20:37)
[2017-03-21] MEDS: REMOVE OLD PATCH T-DERMAL SCH (20:38)
[2017-03-22] MEDS: ALPRAZolam 1 MG TAB PO PRN ×4 (00:45→18:29)
[2017-03-22] MEDS: ACETAMINOPHEN/HYDROcodone 325 MG/5 MG TAB PO PRN ×3 (07:08→18:29)
[2017-03-22 08:00] VITALS: BP 125/90; PULSE 64; RESP 20; TEMP 98.6; O2SAT 100
--- NOTE | 2017-03-22 08:39 | HHI.PR ---
Subjective History of Present Illness Patient seen on 03/21/17 Patient feel better no other issue. mild low sodium will monitor. 134 today....better. waiting for placement. Review of Systems Constitutional Constitutional: Fatigue, Weakness Vitals/Results Intake & Output 03/21/17 03/21/17 03/22/17 15:00 23:00 07:00 Intake Total 840 ml Balance 840 ml Intake Oral 840 ml # Voids 4 2 # Bowel Movements 0 Vital Signs Vital Signs Date Time Temp Pulse Resp B/P Pulse Ox O2 Delivery O2 Flow Rate FiO2 03/21/17 20:00 97.9 62 19 148/95 100 03/21/17 14:55 18 CBC/BMP: 03/21/17 0811 03/21/17 0811 Physical Exam General General Appearance: Well Nourished, No Acute Distress, Comfortable Eyes Eye Exam: Pupils Equal, Pupils Reactive, Sclera White, Extraocular Movement Intact Ears & Nose Ears & Nose Exam: Nasal Mucosa [place] Throat Throat Exam: Oral Mucosa [place] & Moist, Oral Pharynx Normal Neck Neck Exam: Neck Supple, Trachea Midline Pulmonary Resp Exam: Breath Sounds Equal, Poor Inspiratory Effort (low volumes, smoker) Cardiology CV Exam: Regular Gastrointestinal/Abdomen GI Exam: Soft, Non-Tender, Bowel Sounds Present, Non-Distended Musculoskeletal MS Exam: Joints Intact Integumentary Skin Exam: Warm, Dry Extremeties Extremities Exam: No Edema, Pedal Pulses Palpable, Trace Edema Neurologic Neuro Exam: Alert, Awake, Speech Clear, Dispatcher Radioactive Waste Disposal Equal VTE Prophylaxis VTE Prophylaxis Meds: Lovenox Assessment/Plan Problem List: (1) Fracture of distal end of left tibia (2) Edema of left foot (3) Edema of left ankle (4) Fracture of distal fibula (5) History of CVA (cerebrovascular accident) (6) Hyponatremia (7) Depression (8) HTN (hypertension) (9) Acute renal injury (10) Major neurocognitive disorder Assessment/Plan 67-year-old female who came to the emergency room complaining of left foot swelling and pain, questionable history of recent cellulitis. Denies any actual injury. Imaging studies completed, was noted with fracture of the distal tib and fib. Also positive for linear nondisplaced fracture to the lateral base of the distal phalanx of the first ray. Was evaluated by orthopedic surgeon S/P Left lower extremity open reduction and internal fixation of distal tibial pilon fracture with close reduction of distal fibula fracture 02/27/17 -Appreciate orthopedic input Continue with postoperative orthopedic care -Questionable history recent cellulitis, completed Ancef postoperatively -Pain management -Lovenox for DVT prophylaxis -Physical therapy per orthopedic recommendations Hyponatremia, etiology unclear- sodium better Acute renal injury, possibly secondary to dehydration- Resolved Avoid nephrotoxic agent History of CVA -Continue home medication Hypertension, stable -Continue home medical Lipidemia, stable Continue with home medication Anxiety and depression Continue with home medication Cognitive deficits, possibly secondary to CVA which is decision making and subsequent placement. Patient refusing to go to SNF. Unable to go to [facility] due to not being able to meet her needs -appreciate psych input, pt. with poss. undiagnosed cognitive impairment most probably related with CVA highly suspected. Since the patient is unable to express the reason of her hospitalization, is unable to verbalize a clear understanding and appreciation of current medical problems, she has unrealistic expectations about her prognosis. Per psyche, she does not have decision- making capacity to participate in discharge planning at this moment. She can continue Lexapro 10 mg for depression. Agree 100% with the involvement of palliative care in this case to determining who will be the surrogated decision maker for the patient or health care by proxy. -Palliative care input appreciated. Palliative care spoke to pt's mother, she is proxy Patient has been cleared for discharge, placement has been an issue. Multiple facilities have been asked to evaluate patient and have denied her Boyfriend was going to take her home, however CM found out that he is homeless Check CBC with diff CMP in AM. D/W patient. Problem Qualifiers (1) Fracture of distal end of left tibia: (2) Fracture of distal fibula: (3) Depression: Qualified Code: F32.9 - Depression, unspecified depression type (4) HTN (hypertension): Qualified Code: I10 - Essential hypertension Jatinder Mata MD Mar 22, 2017 08:39
[2017-03-22] MEDS: NICOTINE 21 MG/24 HR PATCH T-DERMAL SCH (08:40)
[2017-03-22] MEDS: cloNIDine HCL 0.1 MG TAB PO SCH ×2 (08:41→21:17)
[2017-03-22] MEDS: REMOVE OLD PATCH T-DERMAL SCH (08:41)
[2017-03-22] MEDS: MAGNESIUM HYDROXIDE SUSP 30 ML CUP PO SCH (08:42)
[2017-03-22] MEDS: ATENOLOL 50 MG TAB PO SCH ×3 (08:42→17:07)
[2017-03-22] MEDS: diphenhydrAMINE HCL 25 MG CAP PO PRN (08:42)
[2017-03-22] MEDS: amLODIPine BESYLATE 5 MG TAB PO SCH (08:42)
[2017-03-22] MEDS: ESCITALOPRAM OXALATE 10 MG TAB PO SCH (08:42)
[2017-03-22] MEDS: MULTIVITAMINS/MINERALS THERAPEUTIC TAB PO SCH (08:42)
[2017-03-22] MEDS: SODIUM CHLORIDE 0.9% FLUSH 10 ML FLUSH IV FLUSH SCH ×2 (08:44→21:00)
[2017-03-22] MEDS: DOCUSATE SODIUM 50 MG/SENNA 8.6 MG TAB PO SCH ×2 (11:38→21:17)
[2017-03-22] MEDS: GABAPENTIN 100 MG CAP PO SCH ×3 (11:39→17:07)
[2017-03-22 19:00] VITALS: BP 108/80; PULSE 63; RESP 16; TEMP 95.7; O2SAT 100
[2017-03-22 21:15] VITALS: BP 138/91
[2017-03-22] MEDS: ATORVASTATIN 10 MG TAB PO SCH (21:17)
[2017-03-23] MEDS: ALPRAZolam 1 MG TAB PO PRN ×4 (00:33→20:24)
[2017-03-23] MEDS: ACETAMINOPHEN/HYDROcodone 325 MG/5 MG TAB PO PRN ×4 (00:33→21:33)
[2017-03-23] MEDS: LACTATED RINGER'S 1000 ML INJ 1,000 ML IV SCH (01:15)
[2017-03-23] MEDS: MAGNESIUM HYDROXIDE SUSP 30 ML CUP PO SCH (07:54)
[2017-03-23] MEDS: ATENOLOL 50 MG TAB PO SCH ×3 (07:54→17:16)
[2017-03-23] MEDS: NICOTINE 21 MG/24 HR PATCH T-DERMAL SCH (07:55)
[2017-03-23] MEDS: DOCUSATE SODIUM 50 MG/SENNA 8.6 MG TAB PO SCH ×2 (07:55→20:23)
[2017-03-23] MEDS: ESCITALOPRAM OXALATE 10 MG TAB PO SCH (07:55)
[2017-03-23] MEDS: amLODIPine BESYLATE 5 MG TAB PO SCH (07:55)
[2017-03-23] MEDS: MULTIVITAMINS/MINERALS THERAPEUTIC TAB PO SCH (07:55)
[2017-03-23] MEDS: GABAPENTIN 100 MG CAP PO SCH ×3 (07:55→17:16)
[2017-03-23] MEDS: cloNIDine HCL 0.1 MG TAB PO SCH ×2 (07:56→20:24)
[2017-03-23] MEDS: SODIUM CHLORIDE 0.9% FLUSH 10 ML FLUSH IV FLUSH SCH ×2 (07:58→20:27)
[2017-03-23 08:00] VITALS: BP 126/85; PULSE 65; RESP 16; TEMP 96.7; O2SAT 97
--- NOTE | 2017-03-23 09:34 | HHI.PR ---
Subjective History of Present Illness Patient feel better no other issue. mild low sodium will monitor. 133 today.... waiting for placement. Review of Systems Constitutional Constitutional: Fatigue, Weakness Vitals/Results Intake & Output 03/22/17 03/22/17 03/23/17 15:00 23:00 07:00 Intake Total 480 ml 720 ml 480 ml Output Total 900 ml 800 ml Balance 480 ml -180 ml -320 ml Intake Oral 480 ml 720 ml 480 ml Output Urine Total 900 ml 800 ml # Voids 1 # Bowel Movements 0 0 1 Vital Signs Vital Signs Date Time Temp Pulse Resp B/P Pulse Ox O2 Delivery O2 Flow Rate FiO2 03/23/17 08:00 96.7 65 16 126/85 97 03/22/17 21:15 138/91 03/22/17 19:00 95.7 63 16 108/80 100 03/22/17 13:53 20 CBC/BMP: 03/21/17 0811 03/21/17 0811 Physical Exam General General Appearance: Well Nourished, No Acute Distress, Comfortable Eyes Eye Exam: Pupils Equal, Pupils Reactive, Sclera White, Extraocular Movement Intact Ears & Nose Ears & Nose Exam: Nasal Mucosa [place] Throat Throat Exam: Oral Mucosa [place] & Moist, Oral Pharynx Normal Neck Neck Exam: Neck Supple, Trachea Midline Pulmonary Resp Exam: Breath Sounds Equal, Poor Inspiratory Effort (low volumes, smoker) Cardiology CV Exam: Regular Gastrointestinal/Abdomen GI Exam: Soft, Non-Tender, Bowel Sounds Present, Non-Distended Musculoskeletal MS Exam: Joints Intact Integumentary Skin Exam: Warm, Dry Extremeties Extremities Exam: No Edema, Pedal Pulses Palpable, Trace Edema Neurologic Neuro Exam: Alert, Awake, Speech Clear, Business Department Chair Equal VTE Prophylaxis VTE Prophylaxis Meds: Lovenox Assessment/Plan Problem List: (1) Fracture of distal end of left tibia (2) Edema of left foot (3) Edema of left ankle (4) Fracture of distal fibula (5) History of CVA (cerebrovascular accident) (6) Hyponatremia (7) Depression (8) HTN (hypertension) (9) Acute renal injury (10) Major neurocognitive disorder Assessment/Plan 67-year-old female who came to the emergency room complaining of left foot swelling and pain, questionable history of recent cellulitis. Denies any actual injury. Imaging studies completed, was noted with fracture of the distal tib and fib. Also positive for linear nondisplaced fracture to the lateral base of the distal phalanx of the first ray. Was evaluated by orthopedic surgeon S/P Left lower extremity open reduction and internal fixation of distal tibial pilon fracture with close reduction of distal fibula fracture 02/27/17 -Appreciate orthopedic input Continue with postoperative orthopedic care -Questionable history recent cellulitis, completed Ancef postoperatively -Pain management -Lovenox for DVT prophylaxis -Physical therapy per orthopedic recommendations Hyponatremia, etiology unclear- sodium better Acute renal injury, possibly secondary to dehydration- Resolved Avoid nephrotoxic agent History of CVA -Continue home medication Hypertension, stable -Continue home medical Lipidemia, stable Continue with home medication Anxiety and depression Continue with home medication Cognitive deficits, possibly secondary to CVA which is decision making and subsequent placement. Patient refusing to go to SNF. Unable to go to [facility] due to not being able to meet her needs -appreciate psych input, pt. with poss. undiagnosed cognitive impairment most probably related with CVA highly suspected. Since the patient is unable to express the reason of her hospitalization, is unable to verbalize a clear understanding and appreciation of current medical problems, she has unrealistic expectations about her prognosis. Per psyche, she does not have decision- making capacity to participate in discharge planning at this moment. She can continue Lexapro 10 mg for depression. Agree 100% with the involvement of palliative care in this case to determining who will be the surrogated decision maker for the patient or health care by proxy. -Palliative care input appreciated. Palliative care spoke to pt's mother, she is proxy Patient has been cleared for discharge, placement has been an issue. Multiple facilities have been asked to evaluate patient and have denied her Boyfriend was going to take her home, however CM found out that he is homeless Check CBC with diff CMP in AM. D/W patient. Discussed Condition with: Patient Problem Qualifiers (1) Fracture of distal end of left tibia: (2) Fracture of distal fibula: (3) Depression: Qualified Code: F32.9 - Depression, unspecified depression type (4) HTN (hypertension): Qualified Code: I10 - Essential hypertension Jatinder Mata MD Mar 23, 2017 09:33
[2017-03-23 20:00] VITALS: BP 137/92; PULSE 57; RESP 18; TEMP 98.3; O2SAT 97
[2017-03-23] MEDS: ATORVASTATIN 10 MG TAB PO SCH (20:23)
[2017-03-23] MEDS: REMOVE OLD PATCH T-DERMAL SCH (20:24)
[2017-03-24] MEDS: LACTATED RINGER'S 1000 ML INJ 1,000 ML IV SCH (00:32)
[2017-03-24] MEDS: ALPRAZolam 1 MG TAB PO PRN ×4 (02:40→22:34)
[2017-03-24] MEDS: ACETAMINOPHEN/HYDROcodone 325 MG/5 MG TAB PO PRN ×4 (03:52→22:34)
[2017-03-24] MEDS: DOCUSATE SODIUM 50 MG/SENNA 8.6 MG TAB PO SCH ×2 (07:52→21:45)
[2017-03-24] MEDS: ATENOLOL 50 MG TAB PO SCH ×3 (07:53→16:30)
[2017-03-24] MEDS: amLODIPine BESYLATE 5 MG TAB PO SCH (07:53)
[2017-03-24] MEDS: ESCITALOPRAM OXALATE 10 MG TAB PO SCH (07:53)
[2017-03-24] MEDS: MULTIVITAMINS/MINERALS THERAPEUTIC TAB PO SCH (07:53)
[2017-03-24] MEDS: NICOTINE 21 MG/24 HR PATCH T-DERMAL SCH (07:53)
[2017-03-24] MEDS: GABAPENTIN 100 MG CAP PO SCH ×3 (07:53→16:30)
[2017-03-24] MEDS: MAGNESIUM HYDROXIDE SUSP 30 ML CUP PO SCH (07:53)
[2017-03-24] MEDS: cloNIDine HCL 0.1 MG TAB PO SCH ×2 (07:53→21:45)
[2017-03-24] MEDS: SODIUM CHLORIDE 0.9% FLUSH 10 ML FLUSH IV FLUSH SCH ×2 (07:54→21:00)
[2017-03-24 08:00] VITALS: BP 128/88; PULSE 62; RESP 18; TEMP 96.7; O2SAT 96
--- NOTE | 2017-03-24 18:50 | HHI.PR ---
Subjective History of Present Illness Patient feel better no other issue. .... waiting for placement. Review of Systems Constitutional Constitutional: Fatigue, Weakness Vitals/Results Intake & Output 03/23/17 03/23/17 03/24/17 15:00 23:00 07:00 Intake Total 690 ml 720 ml 560 ml Output Total 800 ml 500 ml Balance 690 ml -80 ml 60 ml Intake Oral 690 ml 720 ml 560 ml Output Urine Total 800 ml 500 ml # Voids 3 # Bowel Movements 0 0 0 Vital Signs Vital Signs Date Time Temp Pulse Resp B/P Pulse Ox O2 Delivery O2 Flow Rate FiO2 03/24/17 08:00 96.7 62 18 128/88 96 03/24/17 04:52 16 03/23/17 20:00 98.3 57 18 137/92 97 CBC/BMP: 03/21/17 0811 03/21/17 0811 Physical Exam General General Appearance: Well Nourished, No Acute Distress, Comfortable Eyes Eye Exam: Pupils Equal, Pupils Reactive, Sclera White, Extraocular Movement Intact Ears & Nose Ears & Nose Exam: Nasal Mucosa [place] Throat Throat Exam: Oral Mucosa [place] & Moist, Oral Pharynx Normal Neck Neck Exam: Neck Supple, Trachea Midline Pulmonary Resp Exam: Breath Sounds Equal, Poor Inspiratory Effort (low volumes, smoker) Cardiology CV Exam: Regular Gastrointestinal/Abdomen GI Exam: Soft, Non-Tender, Bowel Sounds Present, Non-Distended Musculoskeletal MS Exam: Joints Intact Integumentary Skin Exam: Warm, Dry Extremeties Extremities Exam: No Edema, Pedal Pulses Palpable, Trace Edema Neurologic Neuro Exam: Alert, Awake, Speech Clear, Safety Technician Equal VTE Prophylaxis VTE Prophylaxis Meds: Lovenox Assessment/Plan Problem List: (1) Fracture of distal end of left tibia (2) Edema of left foot (3) Edema of left ankle (4) Fracture of distal fibula (5) History of CVA (cerebrovascular accident) (6) Hyponatremia (7) Depression (8) HTN (hypertension) (9) Acute renal injury (10) Major neurocognitive disorder Assessment/Plan 67-year-old female who came to the emergency room complaining of left foot swelling and pain, questionable history of recent cellulitis. Denies any actual injury. Imaging studies completed, was noted with fracture of the distal tib and fib. Also positive for linear nondisplaced fracture to the lateral base of the distal phalanx of the first ray. Was evaluated by orthopedic surgeon S/P Left lower extremity open reduction and internal fixation of distal tibial pilon fracture with close reduction of distal fibula fracture 02/27/17 -Appreciate orthopedic input Continue with postoperative orthopedic care -Questionable history recent cellulitis, completed Ancef postoperatively -Pain management -Lovenox for DVT prophylaxis -Physical therapy per orthopedic recommendations Hyponatremia, etiology unclear- sodium better Acute renal injury, possibly secondary to dehydration- Resolved Avoid nephrotoxic agent History of CVA -Continue home medication Hypertension, stable -Continue home medical Lipidemia, stable Continue with home medication Anxiety and depression Continue with home medication Cognitive deficits, possibly secondary to CVA which is decision making and subsequent placement. Patient refusing to go to SNF. [facility] go to [facility] due to not being able to meet her needs -appreciate psych input, pt. with poss. undiagnosed cognitive impairment most probably related with CVA highly suspected. Since the patient is unable to express the reason of her hospitalization, is unable to verbalize a clear understanding and appreciation of current medical problems, she has unrealistic expectations about her prognosis. Per psyche, she does not have decision- making capacity to participate in discharge planning at this moment. She can continue Lexapro 10 mg for depression. Agree 100% with the involvement of palliative care in this case to determining who will be the surrogated decision maker for the patient or health care by proxy. -Palliative care input appreciated. Palliative care spoke to pt's mother, she is proxy Patient has been cleared for discharge, placement has been an issue. Multiple facilities have been asked to evaluate patient and have denied her Boyfriend was going to take her home, however CM found out that he is homeless Check CBC with diff CMP in AM. D/W patient. Problem Qualifiers (1) Fracture of distal end of left tibia: (2) Fracture of distal fibula: (3) Depression: Qualified Code: F32.9 - Depression, unspecified depression type (4) HTN (hypertension): Qualified Code: I10 - Essential hypertension Jatinder Mata MD Mar 24, 2017 18:49 Jatinder Mata MD Mar 24, 2017 18:49
[2017-03-24 20:00] VITALS: BP 139/88; PULSE 58; RESP 20; TEMP 96.9; O2SAT 96
[2017-03-24] MEDS: REMOVE OLD PATCH T-DERMAL SCH (21:00)
[2017-03-24] MEDS: ATORVASTATIN 10 MG TAB PO SCH (21:45)
[2017-03-25] MEDS: LACTATED RINGER'S 1000 ML INJ 1,000 ML IV SCH ×2 (01:15→19:43)
[2017-03-25] MEDS: ALPRAZolam 1 MG TAB PO PRN ×3 (06:36→18:23)
[2017-03-25] MEDS: ACETAMINOPHEN/HYDROcodone 325 MG/5 MG TAB PO PRN ×3 (06:36→18:23)
[2017-03-25] MEDS: MAGNESIUM HYDROXIDE SUSP 30 ML CUP PO SCH (08:27)
[2017-03-25] MEDS: DOCUSATE SODIUM 50 MG/SENNA 8.6 MG TAB PO SCH ×2 (08:27→21:23)
[2017-03-25] MEDS: amLODIPine BESYLATE 5 MG TAB PO SCH (08:27)
[2017-03-25] MEDS: MULTIVITAMINS/MINERALS THERAPEUTIC TAB PO SCH (08:27)
[2017-03-25] MEDS: ESCITALOPRAM OXALATE 10 MG TAB PO SCH (08:27)
[2017-03-25] MEDS: ATENOLOL 50 MG TAB PO SCH ×3 (08:28→16:57)
[2017-03-25] MEDS: cloNIDine HCL 0.1 MG TAB PO SCH ×2 (08:28→21:23)
[2017-03-25] MEDS: GABAPENTIN 100 MG CAP PO SCH ×3 (08:28→16:57)
[2017-03-25] MEDS: NICOTINE 21 MG/24 HR PATCH T-DERMAL SCH (08:28)
[2017-03-25] MEDS: SODIUM CHLORIDE 0.9% FLUSH 10 ML FLUSH IV FLUSH SCH ×2 (08:29→19:42)
[2017-03-25 09:37] VITALS: BP 120/81; PULSE 58; RESP 15; TEMP 96.9; O2SAT 95
[2017-03-25 20:00] VITALS: BP 151/86; PULSE 54; RESP 20; TEMP 97.5; O2SAT 97
[2017-03-25] MEDS: REMOVE OLD PATCH T-DERMAL SCH (21:00)
[2017-03-25] MEDS: ATORVASTATIN 10 MG TAB PO SCH (21:23)
--- NOTE | 2017-03-25 22:33 | HHI.PR ---
Subjective History of Present Illness Patient feel better no other issue. .. waiting for placement. Review of Systems Constitutional Constitutional: Fatigue, Weakness Vitals/Results Intake & Output 03/24/17 03/24/17 03/25/17 15:00 23:00 07:00 Intake Total 780 ml 240 ml 290 ml Balance 780 ml 240 ml 290 ml Intake Oral 780 ml 240 ml 290 ml # Voids 2 1 2 # Bowel Movements 0 0 0 Vital Signs Vital Signs Date Time Temp Pulse Resp B/P Pulse Ox O2 Delivery O2 Flow Rate FiO2 03/25/17 19:23 18 03/25/17 09:37 96.9 58 15 120/81 95 CBC/BMP: 03/21/17 0811 03/21/17 0811 Physical Exam General General Appearance: Well Nourished, No Acute Distress, Comfortable Eyes Eye Exam: Pupils Equal, Pupils Reactive, Sclera White, Extraocular Movement Intact Ears & Nose Ears & Nose Exam: Nasal Mucosa [place] Throat Throat Exam: Oral Mucosa [place] & Moist, Oral Pharynx Normal Neck Neck Exam: Neck Supple, Trachea Midline Pulmonary Resp Exam: Breath Sounds Equal, Poor Inspiratory Effort (low volumes, smoker) Cardiology CV Exam: Regular Gastrointestinal/Abdomen GI Exam: Soft, Non-Tender, Bowel Sounds Present, Non-Distended Musculoskeletal MS Exam: Joints Intact Integumentary Skin Exam: Warm, Dry Extremeties Extremities Exam: No Edema, Pedal Pulses Palpable, Trace Edema Neurologic Neuro Exam: Alert, Awake, Speech Clear, Chicken Cutter Equal VTE Prophylaxis VTE Prophylaxis Meds: Lovenox Assessment/Plan Problem List: (1) Fracture of distal end of left tibia (2) Edema of left foot (3) Edema of left ankle (4) Fracture of distal fibula (5) History of CVA (cerebrovascular accident) (6) Hyponatremia (7) Depression (8) HTN (hypertension) (9) Acute renal injury (10) Major neurocognitive disorder Assessment/Plan 67-year-old female who came to the emergency room complaining of left foot swelling and pain, questionable history of recent cellulitis. Denies any actual injury. Imaging studies completed, was noted with fracture of the distal tib and fib. Also positive for linear nondisplaced fracture to the lateral base of the distal phalanx of the first ray. Was evaluated by orthopedic surgeon S/P Left lower extremity open reduction and internal fixation of distal tibial pilon fracture with close reduction of distal fibula fracture 02/27/17 -Appreciate orthopedic input Continue with postoperative orthopedic care -Questionable history recent cellulitis, completed Ancef postoperatively -Pain management -Lovenox for DVT prophylaxis -Physical therapy per orthopedic recommendations Hyponatremia, etiology unclear- sodium better Acute renal injury, possibly secondary to dehydration- Resolved Avoid nephrotoxic agent History of CVA -Continue home medication Hypertension, stable -Continue home medical Lipidemia, stable Continue with home medication Anxiety and depression Continue with home medication Cognitive deficits, possibly secondary to CVA which is decision making and subsequent placement. Patient refusing to go to SNF. Unable to go to [facility] due to not being able to meet her needs -appreciate psych input, pt. with poss. undiagnosed cognitive impairment most probably related with CVA highly suspected. Since the patient is unable to express the reason of her hospitalization, is unable to verbalize a clear understanding and appreciation of current medical problems, she has unrealistic expectations about her prognosis. Per psyche, she does not have decision- making capacity to participate in discharge planning at this moment. She can continue Lexapro 10 mg for depression. Agree 100% with the involvement of palliative care in this case to determining who will be the surrogated decision maker for the patient or health care by proxy. -Palliative care input appreciated. Palliative care spoke to pt's mother, she is proxy Patient has been cleared for discharge, placement has been an issue. Multiple facilities have been asked to evaluate patient and have denied her Boyfriend was going to take her home, however CM found out that he is homeless D/W patient. Discussed Condition with: Patient Problem Qualifiers (1) Fracture of distal end of left tibia: (2) Fracture of distal fibula: (3) Depression: Qualified Code: F32.9 - Depression, unspecified depression type (4) HTN (hypertension): Qualified Code: I10 - Essential hypertension Jatinder Mata MD Mar 25, 2017 22:33
[2017-03-26] MEDS: ACETAMINOPHEN/HYDROcodone 325 MG/5 MG TAB PO PRN ×4 (00:25→20:20)
[2017-03-26] MEDS: ALPRAZolam 1 MG TAB PO PRN ×4 (00:25→20:20)
[2017-03-26 08:00] VITALS: BP 134/90; PULSE 54; RESP 20; TEMP 96.3; O2SAT 100
[2017-03-26 08:14] LABS: AUTOMATED NEUTROPHIL # 4.1 TH/MM3 (1.8-7.7); BASOPHIL % 0.6 % (0.0-2.0); EOSINOPHIL # 0.2 TH/MM3 (0-0.4); EOSINOPHIL % 2.3 % (0.0-4.0); HEMATOCRIT 39.6 % (35.0-46.0); HEMO FLAGS DIFF FINAL; LYMPH % 29.2 % (9.0-44.0); MEAN CELL VOLUME 88.3 FL (80.0-100.0); MEAN CORPUSCULAR HEMOGLOBIN 29.6 PG (27.0-34.0); MEAN CORPUSCULAR HGB CONC 33.5 % (32.0-36.0); MONO % 6.2 % (0.0-8.0); NEUT % 61.7 % (16.0-70.0); PLATELET COUNT 359 TH/MM3 (150-450); RED BLOOD COUNT 4.49 MIL/MM3 (4.00-5.30); RED CELL DISTRIBUTION WIDTH 12.3 % (11.6-17.2); WHITE BLOOD COUNT 6.7 TH/MM3 (4.0-11.0)
[2017-03-26 08:15] LABS: CHLORIDE 95 MEQ/L (98-107); POTASSIUM 3.6 MEQ/L (3.5-5.1); SODIUM (NA) 135 MEQ/L (136-145)
[2017-03-26 08:21] LABS: ANION GAP 7 MEQ/L (5-15); BICARBONATE 32.8 MEQ/L (21.0-32.0); BLOOD UREA NITROGEN 6 MG/DL (7-18)
[2017-03-26 08:24] LABS: ALT (GPT) 27 U/L (10-53); AST (GOT) 17 U/L (15-37); GLOMERULAR FILTRATION RATE 75 ML/MIN (>89)
[2017-03-26 08:25] LABS: TOTAL BILIRUBIN ADULT 0.3 MG/DL (0.2-1.0)
[2017-03-26 08:27] LABS: ALKALINE PHOSPHATASE 124 U/L (45-117)
--- NOTE | 2017-03-26 08:29 | HHI.PR ---
Subjective History of Present Illness Patient feel better no other issue. waiting for placement. Review of Systems Constitutional Constitutional: Fatigue, Weakness Vitals/Results Intake & Output 03/25/17 03/25/17 03/26/17 15:00 23:00 07:00 Intake Total 100 ml 1640 ml 90 ml Balance 100 ml 1640 ml 90 ml Intake Oral 100 ml 1640 ml 90 ml # Voids 6 1 # Bowel Movements 0 0 Vital Signs Vital Signs Date Time Temp Pulse Resp B/P Pulse Ox O2 Delivery O2 Flow Rate FiO2 03/26/17 08:00 96.3 54 20 134/90 100 03/25/17 20:00 97.5 54 20 151/86 97 03/25/17 19:23 18 03/25/17 09:37 96.9 58 15 120/81 95 CBC/BMP: 03/26/17 0730 03/26/17 0730 Lab Results Laboratory Tests Test 03/26/17 07:30 White Blood Count 6.7 TH/MM3 Red Blood Count 4.49 MIL/MM3 Hemoglobin 13.3 GM/DL Hematocrit 39.6 % Mean Corpuscular Volume 88.3 FL Mean Corpuscular Hemoglobin 29.6 PG Mean Corpuscular Hemoglobin 33.5 % Concent Red Cell Distribution Width 12.3 % Platelet Count 359 TH/MM3 Mean Platelet Volume 8.1 FL Neutrophils (%) (Auto) 61.7 % Lymphocytes (%) (Auto) 29.2 % Monocytes (%) (Auto) 6.2 % Eosinophils (%) (Auto) 2.3 % Basophils (%) (Auto) 0.6 % Neutrophils # (Auto) 4.1 TH/MM3 Lymphocytes # (Auto) 2.0 TH/MM3 Monocytes # (Auto) 0.4 TH/MM3 Eosinophils # (Auto) 0.2 TH/MM3 Basophils # (Auto) 0.0 TH/MM3 CBC Comment DIFF FINAL Differential Comment Sodium Level 135 MEQ/L Potassium Level 3.6 MEQ/L Chloride Level 95 MEQ/L Carbon Dioxide Level 32.8 MEQ/L Anion Gap 7 MEQ/L Blood Urea Nitrogen 6 MG/DL Creatinine 0.79 MG/DL Estimat Glomerular Filtration 75 ML/MIN Rate Random Glucose 83 MG/DL Calcium Level 9.0 MG/DL Total Bilirubin 0.3 MG/DL Aspartate Amino Transf 17 U/L (AST/SGOT) Alanine Aminotransferase 27 U/L (ALT/SGPT) Alkaline Phosphatase 124 U/L Total Protein 7.6 GM/DL Albumin 3.7 GM/DL Physical Exam General General Appearance: Well Nourished, No Acute Distress, Comfortable Eyes Eye Exam: Pupils Equal, Pupils Reactive, Sclera White, Extraocular Movement Intact Ears & Nose Ears & Nose Exam: Nasal Mucosa [place] Throat Throat Exam: Oral Mucosa [place] & Moist, Oral Pharynx Normal Neck Neck Exam: Neck Supple, Trachea Midline Pulmonary Resp Exam: Breath Sounds Equal, Poor Inspiratory Effort (low volumes, smoker) Cardiology CV Exam: Regular Gastrointestinal/Abdomen GI Exam: Soft, Non-Tender, Bowel Sounds Present, Non-Distended Musculoskeletal MS Exam: Joints Intact Integumentary Skin Exam: Warm, Dry Extremeties Extremities Exam: No Edema, Pedal Pulses Palpable, Trace Edema Neurologic Neuro Exam: Alert, Awake, Speech Clear, Digital Color Press Operator Equal VTE Prophylaxis VTE Prophylaxis Meds: Lovenox Assessment/Plan Problem List: (1) Fracture of distal end of left tibia (2) Edema of left foot (3) Edema of left ankle (4) Fracture of distal fibula (5) History of CVA (cerebrovascular accident) (6) Hyponatremia (7) Depression (8) HTN (hypertension) (9) Acute renal injury (10) Major neurocognitive disorder Assessment/Plan 67-year-old female who came to the emergency room complaining of left foot swelling and pain, questionable history of recent cellulitis. Denies any actual injury. Imaging studies completed, was noted with fracture of the distal tib and fib. Also positive for linear nondisplaced fracture to the lateral base of the distal phalanx of the first ray. Was evaluated by orthopedic surgeon S/P Left lower extremity open reduction and internal fixation of distal tibial pilon fracture with close reduction of distal fibula fracture 02/27/17 -Appreciate orthopedic input Continue with postoperative orthopedic care -Questionable history recent cellulitis, completed Ancef postoperatively -Pain management -Lovenox for DVT prophylaxis -Physical therapy per orthopedic recommendations Hyponatremia, etiology unclear- sodium better Acute renal injury, possibly secondary to dehydration- Resolved Avoid nephrotoxic agent History of CVA -Continue home medication Hypertension, stable -Continue home medical Lipidemia, stable Continue with home medication Anxiety and depression Continue with home medication Cognitive deficits, possibly secondary to CVA which is decision making and subsequent placement. Patient refusing to go to SNF. Unable to go to [facility] due to not being able to meet her needs -appreciate psych input, pt. with poss. undiagnosed cognitive impairment most probably related with CVA highly suspected. Since the patient is unable to express the reason of her hospitalization, is unable to verbalize a clear understanding and appreciation of current medical problems, she has unrealistic expectations about her prognosis. Per psyche, she does not have decision- making capacity to participate in discharge planning at this moment. She can continue Lexapro 10 mg for depression. Agree 100% with the involvement of palliative care in this case to determining who will be the surrogated decision maker for the patient or health care by proxy. -Palliative care input appreciated. Palliative care spoke to pt's mother, she is proxy Patient has been cleared for discharge, placement has been an issue. Multiple facilities have been asked to evaluate patient and have denied her Boyfriend was going to take her home, however CM found out that he is homeless Check CBC with diff CMP in AM. D/W patient. Problem Qualifiers (1) Fracture of distal end of left tibia: (2) Fracture of distal fibula: (3) Depression: Qualified Code: F32.9 - Depression, unspecified depression type (4) HTN (hypertension): Qualified Code: I10 - Essential hypertension Jatinder Mata MD Mar 26, 2017 08:29 Jatinder Mata MD Mar 26, 2017 08:29
[2017-03-26] MEDS: SODIUM CHLORIDE 0.9% FLUSH 10 ML FLUSH IV FLUSH SCH ×2 (09:00→21:00)
[2017-03-26] MEDS: REMOVE OLD PATCH T-DERMAL SCH (09:07)
[2017-03-26] MEDS: NICOTINE 21 MG/24 HR PATCH T-DERMAL SCH (09:07)
[2017-03-26] MEDS: ESCITALOPRAM OXALATE 10 MG TAB PO SCH (09:07)
[2017-03-26] MEDS: ATENOLOL 50 MG TAB PO SCH ×3 (09:08→18:01)
[2017-03-26] MEDS: DOCUSATE SODIUM 50 MG/SENNA 8.6 MG TAB PO SCH ×2 (09:08→20:22)
[2017-03-26] MEDS: GABAPENTIN 100 MG CAP PO SCH ×3 (09:08→18:01)
[2017-03-26] MEDS: amLODIPine BESYLATE 5 MG TAB PO SCH (09:08)
[2017-03-26] MEDS: cloNIDine HCL 0.1 MG TAB PO SCH ×2 (09:08→20:19)
[2017-03-26] MEDS: MULTIVITAMINS/MINERALS THERAPEUTIC TAB PO SCH (09:08)
[2017-03-26] MEDS: MAGNESIUM HYDROXIDE SUSP 30 ML CUP PO SCH (09:10)
[2017-03-26 20:00] VITALS: BP 166/100; PULSE 62; RESP 19; TEMP 97.8; O2SAT 99
[2017-03-26] MEDS: ATORVASTATIN 10 MG TAB PO SCH (20:19)
[2017-03-26] MEDS: diphenhydrAMINE HCL 25 MG CAP PO PRN (20:22)
[2017-03-27] MEDS: ALPRAZolam 1 MG TAB PO PRN ×4 (03:12→22:43)
[2017-03-27] MEDS: ACETAMINOPHEN/HYDROcodone 325 MG/5 MG TAB PO PRN ×4 (03:12→22:43)
[2017-03-27] MEDS: diphenhydrAMINE HCL 25 MG CAP PO PRN ×2 (03:12→22:42)
--- NOTE | 2017-03-27 06:49 | HHI.PR ---
Subjective History of Present Illness Patient feel better no other issue. still waiting for placement. Review of Systems Constitutional Constitutional: Fatigue, Weakness Vitals/Results Intake & Output 03/26/17 03/26/17 03/27/17 15:00 23:00 07:00 Intake Total 1110 ml 360 ml 240 ml Balance 1110 ml 360 ml 240 ml Intake Oral 1110 ml 360 ml 240 ml # Voids 4 2 3 # Bowel Movements 4 1 Vital Signs Vital Signs Date Time Temp Pulse Resp B/P Pulse Ox O2 Delivery O2 Flow Rate FiO2 03/26/17 20:00 97.8 62 19 166/100 99 03/26/17 08:00 96.3 54 20 134/90 100 CBC/BMP: 03/26/17 0730 03/26/17 0730 Lab Results Laboratory Tests Test 03/26/17 07:30 White Blood Count 6.7 TH/MM3 Red Blood Count 4.49 MIL/MM3 Hemoglobin 13.3 GM/DL Hematocrit 39.6 % Mean Corpuscular Volume 88.3 FL Mean Corpuscular Hemoglobin 29.6 PG Mean Corpuscular Hemoglobin 33.5 % Concent Red Cell Distribution Width 12.3 % Platelet Count 359 TH/MM3 Mean Platelet Volume 8.1 FL Neutrophils (%) (Auto) 61.7 % Lymphocytes (%) (Auto) 29.2 % Monocytes (%) (Auto) 6.2 % Eosinophils (%) (Auto) 2.3 % Basophils (%) (Auto) 0.6 % Neutrophils # (Auto) 4.1 TH/MM3 Lymphocytes # (Auto) 2.0 TH/MM3 Monocytes # (Auto) 0.4 TH/MM3 Eosinophils # (Auto) 0.2 TH/MM3 Basophils # (Auto) 0.0 TH/MM3 CBC Comment DIFF FINAL Differential Comment Sodium Level 135 MEQ/L Potassium Level 3.6 MEQ/L Chloride Level 95 MEQ/L Carbon Dioxide Level 32.8 MEQ/L Anion Gap 7 MEQ/L Blood Urea Nitrogen 6 MG/DL Creatinine 0.79 MG/DL Estimat Glomerular Filtration 75 ML/MIN Rate Random Glucose 83 MG/DL Calcium Level 9.0 MG/DL Total Bilirubin 0.3 MG/DL Aspartate Amino Transf 17 U/L (AST/SGOT) Alanine Aminotransferase 27 U/L (ALT/SGPT) Alkaline Phosphatase 124 U/L Total Protein 7.6 GM/DL Albumin 3.7 GM/DL Physical Exam General General Appearance: Well Nourished, No Acute Distress, Comfortable Eyes Eye Exam: Pupils Equal, Pupils Reactive, Sclera White, Extraocular Movement Intact Ears & Nose Ears & Nose Exam: Nasal Mucosa [place] Throat Throat Exam: Oral Mucosa [place] & Moist, Oral Pharynx Normal Neck Neck Exam: Neck Supple, Trachea Midline Pulmonary Resp Exam: Breath Sounds Equal, Poor Inspiratory Effort (low volumes, smoker) Cardiology CV Exam: Regular Gastrointestinal/Abdomen GI Exam: Soft, Non-Tender, Bowel Sounds Present, Non-Distended Musculoskeletal MS Exam: Joints Intact Integumentary Skin Exam: Warm, Dry Extremeties Extremities Exam: No Edema, Pedal Pulses Palpable, Trace Edema Neurologic Neuro Exam: Alert, Awake, Speech Clear, Franchise Field Consultant Equal VTE Prophylaxis VTE Prophylaxis Meds: Lovenox Assessment/Plan Problem List: (1) Fracture of distal end of left tibia (2) Edema of left foot (3) Edema of left ankle (4) Fracture of distal fibula (5) History of CVA (cerebrovascular accident) (6) Hyponatremia (7) Depression (8) HTN (hypertension) (9) Acute renal injury (10) Major neurocognitive disorder Assessment/Plan 67-year-old female who came to the emergency room complaining of left foot swelling and pain, questionable history of recent cellulitis. Denies any actual injury. Imaging studies completed, was noted with fracture of the distal tib and fib. Also positive for linear nondisplaced fracture to the lateral base of the distal phalanx of the first ray. Was evaluated by orthopedic surgeon S/P Left lower extremity open reduction and internal fixation of distal tibial pilon fracture with close reduction of distal fibula fracture 02/27/17 -Appreciate orthopedic input Continue with postoperative orthopedic care -Questionable history recent cellulitis, completed Ancef postoperatively -Pain management -Lovenox for DVT prophylaxis -Physical therapy per orthopedic recommendations Hyponatremia, etiology unclear- sodium better Acute renal injury, possibly secondary to dehydration- Resolved Avoid nephrotoxic agent History of CVA -Continue home medication Hypertension, stable -Continue home medical Lipidemia, stable Continue with home medication Anxiety and depression Continue with home medication Cognitive deficits, possibly secondary to CVA which is decision making and subsequent placement. Patient refusing to go to SNF. Unable to go to [facility] due to not being able to meet her needs -appreciate psych input, pt. with poss. undiagnosed cognitive impairment most probably related with CVA highly suspected. Since the patient is unable to express the reason of her hospitalization, is unable to verbalize a clear understanding and appreciation of current medical problems, she has unrealistic expectations about her prognosis. Per psyche, she does not have decision- making capacity to participate in discharge planning at this moment. She can continue Lexapro 10 mg for depression. Agree 100% with the involvement of palliative care in this case to determining who will be the surrogated decision maker for the patient or health care by proxy. -Palliative care input appreciated. Palliative care spoke to pt's mother, she is proxy Patient has been cleared for discharge, placement has been an issue. Multiple facilities have been asked to evaluate patient and have denied her Boyfriend was going to take her home, however CM found out that he is homeless D/W patient. Discussed Condition with: Patient Problem Qualifiers (1) Fracture of distal end of left tibia: (2) Fracture of distal fibula: (3) Depression: Qualified Code: F32.9 - Depression, unspecified depression type (4) HTN (hypertension): Qualified Code: I10 - Essential hypertension Jatinder Mata MD Mar 27, 2017 06:49
[2017-03-27 08:00] VITALS: BP 143/92; PULSE 54; RESP 17; TEMP 95.7; O2SAT 97
[2017-03-27] MEDS: MAGNESIUM HYDROXIDE SUSP 30 ML CUP PO SCH (09:00)
[2017-03-27] MEDS: SODIUM CHLORIDE 0.9% FLUSH 10 ML FLUSH IV FLUSH SCH ×2 (09:00→21:00)
[2017-03-27] MEDS: DOCUSATE SODIUM 50 MG/SENNA 8.6 MG TAB PO SCH ×2 (09:00→22:43)
[2017-03-27] MEDS: cloNIDine HCL 0.1 MG TAB PO SCH ×2 (09:41→22:43)
[2017-03-27] MEDS: ESCITALOPRAM OXALATE 10 MG TAB PO SCH (09:41)
[2017-03-27] MEDS: GABAPENTIN 100 MG CAP PO SCH ×3 (09:45→18:00)
[2017-03-27] MEDS: amLODIPine BESYLATE 5 MG TAB PO SCH (09:45)
[2017-03-27] MEDS: ATENOLOL 50 MG TAB PO SCH ×3 (09:46→18:00)
[2017-03-27] MEDS: NICOTINE 21 MG/24 HR PATCH T-DERMAL SCH (09:48)
[2017-03-27] MEDS: MULTIVITAMINS/MINERALS THERAPEUTIC TAB PO SCH (10:39)
[2017-03-27 20:00] VITALS: BP 142/97; PULSE 54; RESP 16; TEMP 96.9; O2SAT 97
[2017-03-27] MEDS: REMOVE OLD PATCH T-DERMAL SCH (21:00)
[2017-03-27] MEDS: ATORVASTATIN 10 MG TAB PO SCH (22:43)
[2017-03-28] MEDS: ACETAMINOPHEN/HYDROcodone 325 MG/5 MG TAB PO PRN ×3 (07:07→21:33)
[2017-03-28] MEDS: ALPRAZolam 1 MG TAB PO PRN ×3 (07:07→21:33)
--- NOTE | 2017-03-28 07:24 | HHI.PR ---
Subjective History of Present Illness Patient feel better no other issue. still waiting for placement. c/o rash on right axilla start Nystatin cream TID. D/W RN Tiffani. Review of Systems Constitutional Constitutional: Fatigue, Weakness Vitals/Results Intake & Output 03/27/17 03/27/17 03/28/17 15:00 23:00 07:00 Intake Total 690 ml 720 ml 420 ml Output Total 1500 ml 450 ml Balance 690 ml -780 ml -30 ml Intake Oral 690 ml 720 ml 420 ml Output Urine Total 1500 ml 450 ml # Voids 3 # Bowel Movements 0 0 0 Vital Signs Vital Signs Date Time Temp Pulse Resp B/P Pulse Ox O2 Delivery O2 Flow Rate FiO2 03/27/17 20:00 96.9 54 16 142/97 97 03/27/17 08:00 95.7 54 17 143/92 97 CBC/BMP: 03/26/17 0730 03/26/17 0730 Physical Exam General General Appearance: Well Nourished, No Acute Distress, Comfortable Eyes Eye Exam: Pupils Equal, Pupils Reactive, Sclera White, Extraocular Movement Intact Ears & Nose Ears & Nose Exam: Nasal Mucosa [place] Throat Throat Exam: Oral Mucosa [place] & Moist, Oral Pharynx Normal Neck Neck Exam: Neck Supple, Trachea Midline Pulmonary Resp Exam: Breath Sounds Equal, Poor Inspiratory Effort (low volumes, smoker) Cardiology CV Exam: Regular Gastrointestinal/Abdomen GI Exam: Soft, Non-Tender, Bowel Sounds Present, Non-Distended Musculoskeletal MS Exam: Joints Intact Integumentary Skin Exam: Warm, Dry Extremeties Extremities Exam: No Edema, Pedal Pulses Palpable, Trace Edema Neurologic Neuro Exam: Alert, Awake, Speech Clear, Tree Climber Equal VTE Prophylaxis VTE Prophylaxis Meds: Lovenox Assessment/Plan Problem List: (1) Fracture of distal end of left tibia (2) Edema of left foot (3) Edema of left ankle (4) Fracture of distal fibula (5) History of CVA (cerebrovascular accident) (6) Hyponatremia (7) Depression (8) HTN (hypertension) (9) Acute renal injury (10) Major neurocognitive disorder Assessment/Plan 67-year-old female who came to the emergency room complaining of left foot swelling and pain, questionable history of recent cellulitis. Denies any actual injury. Imaging studies completed, was noted with fracture of the distal tib and fib. Also positive for linear nondisplaced fracture to the lateral base of the distal phalanx of the first ray. Was evaluated by orthopedic surgeon S/P Left lower extremity open reduction and internal fixation of distal tibial pilon fracture with close reduction of distal fibula fracture 02/27/17 -Appreciate orthopedic input Continue with postoperative orthopedic care -Questionable history recent cellulitis, completed Ancef postoperatively -Pain management -Lovenox for DVT prophylaxis -Physical therapy per orthopedic recommendations Hyponatremia, etiology unclear- sodium better Acute renal injury, possibly secondary to dehydration- Resolved Avoid nephrotoxic agent History of CVA -Continue home medication Hypertension, stable -Continue home medical Lipidemia, stable Continue with home medication Anxiety and depression Continue with home medication Rash on right axilla start Nystatin cream TID. Cognitive deficits, possibly secondary to CVA which is decision making and subsequent placement. Patient refusing to go to SNF. [facility] to go to [facility] due to not being able to meet her needs -appreciate psych input, pt. with poss. undiagnosed cognitive impairment most probably related with CVA highly suspected. Since the patient is unable to express the reason of her hospitalization, is unable to verbalize a clear understanding and appreciation of current medical problems, she has unrealistic expectations about her prognosis. Per psyche, she does not have decision- making capacity to participate in discharge planning at this moment. She can continue Lexapro 10 mg for depression. Agree 100% with the involvement of palliative care in this case to determining who will be the surrogated decision maker for the patient or health care by proxy. -Palliative care input appreciated. Palliative care spoke to pt's mother, she is proxy Patient has been cleared for discharge, placement has been an issue. Multiple facilities have been asked to evaluate patient and have denied her Boyfriend was going to take her home, however CM found out that he is homeless D/W patient. Discussed Condition with: Patient Problem Qualifiers (1) Fracture of distal end of left tibia: (2) Fracture of distal fibula: (3) Depression: Qualified Code: F32.9 - Depression, unspecified depression type (4) HTN (hypertension): Qualified Code: I10 - Essential hypertension Jatinder Mata MD Mar 28, 2017 07:24
[2017-03-28 08:00] VITALS: BP 131/76; PULSE 54; RESP 18; TEMP 96.6; O2SAT 97
[2017-03-28] MEDS: SODIUM CHLORIDE 0.9% FLUSH 10 ML FLUSH IV FLUSH SCH ×2 (09:00→21:00)
[2017-03-28] MEDS: MAGNESIUM HYDROXIDE SUSP 30 ML CUP PO SCH (09:00)
[2017-03-28] MEDS: GABAPENTIN 100 MG CAP PO SCH ×3 (10:03→18:16)
[2017-03-28] MEDS: MULTIVITAMINS/MINERALS THERAPEUTIC TAB PO SCH (10:04)
[2017-03-28] MEDS: NICOTINE 21 MG/24 HR PATCH T-DERMAL SCH (10:04)
[2017-03-28] MEDS: amLODIPine BESYLATE 5 MG TAB PO SCH (10:04)
[2017-03-28] MEDS: cloNIDine HCL 0.1 MG TAB PO SCH ×2 (10:05→21:32)
[2017-03-28] MEDS: ATENOLOL 50 MG TAB PO SCH ×3 (10:05→18:16)
[2017-03-28] MEDS: ESCITALOPRAM OXALATE 10 MG TAB PO SCH (10:06)
[2017-03-28] MEDS: DOCUSATE SODIUM 50 MG/SENNA 8.6 MG TAB PO SCH ×2 (10:06→21:32)
[2017-03-28] MEDS: NYSTATIN 100,000 UNIT/GM CREAM 15 GM TOPICAL SCH ×3 (13:00→18:18)
[2017-03-28 20:00] VITALS: BP 139/82; PULSE 53; RESP 16; TEMP 98.6; O2SAT 100
[2017-03-28] MEDS: ATORVASTATIN 10 MG TAB PO SCH (21:32)
[2017-03-28] MEDS: diphenhydrAMINE HCL 25 MG CAP PO PRN (23:07)
[2017-03-29] MEDS: ACETAMINOPHEN/HYDROcodone 325 MG/5 MG TAB PO PRN ×4 (05:12→23:17)
[2017-03-29] MEDS: ALPRAZolam 1 MG TAB PO PRN ×4 (05:12→23:16)
[2017-03-29 08:00] VITALS: BP 144/88; PULSE 50; RESP 17; TEMP 98; O2SAT 96
--- NOTE | 2017-03-29 08:17 | HHI.PR ---
Subjective History of Present Illness Patient feel better no other issue. still waiting for placement. c/o rash on right axilla on Nystatin cream TID. D/W fund manager Chirstiane working on discharge planning. Review of Systems Constitutional Constitutional: Fatigue, Weakness Vitals/Results Intake & Output 03/28/17 03/28/17 03/29/17 15:00 23:00 07:00 Intake Total 690 ml 720 ml Output Total 800 ml Balance 690 ml -80 ml Intake Oral 690 ml 720 ml IV Total 0 ml Output Urine Total 800 ml # Voids 2 # Bowel Movements 0 0 Vital Signs Vital Signs Date Time Temp Pulse Resp B/P Pulse Ox O2 Delivery O2 Flow Rate FiO2 03/28/17 20:00 98.6 53 16 139/82 100 CBC/BMP: 03/26/17 0730 03/26/17 0730 Physical Exam General General Appearance: Well Nourished, No Acute Distress, Comfortable Eyes Eye Exam: Pupils Equal, Pupils Reactive, Sclera White, Extraocular Movement Intact Ears & Nose Ears & Nose Exam: Nasal Mucosa [place] Throat Throat Exam: Oral Mucosa [place] & Moist, Oral Pharynx Normal Neck Neck Exam: Neck Supple, Trachea Midline Pulmonary Resp Exam: Breath Sounds Equal, Poor Inspiratory Effort (low volumes, smoker) Cardiology CV Exam: Regular Gastrointestinal/Abdomen GI Exam: Soft, Non-Tender, Bowel Sounds Present, Non-Distended Musculoskeletal MS Exam: Joints Intact Integumentary Skin Exam: Warm, Dry Extremeties Extremities Exam: No Edema, Pedal Pulses Palpable, Trace Edema Neurologic Neuro Exam: Alert, Awake, Speech Clear, Time Study Technician Equal VTE Prophylaxis VTE Prophylaxis Meds: Lovenox Assessment/Plan Problem List: (1) Fracture of distal end of left tibia (2) Edema of left foot (3) Edema of left ankle (4) Fracture of distal fibula (5) History of CVA (cerebrovascular accident) (6) Hyponatremia (7) Depression (8) HTN (hypertension) (9) Acute renal injury (10) Major neurocognitive disorder Assessment/Plan 67-year-old female who came to the emergency room complaining of left foot swelling and pain, questionable history of recent cellulitis. Denies any actual injury. Imaging studies completed, was noted with fracture of the distal tib and fib. Also positive for linear nondisplaced fracture to the lateral base of the distal phalanx of the first ray. Was evaluated by orthopedic surgeon S/P Left lower extremity open reduction and internal fixation of distal tibial pilon fracture with close reduction of distal fibula fracture 02/27/17 -Appreciate orthopedic input Continue with postoperative orthopedic care -Questionable history recent cellulitis, completed Ancef postoperatively -Pain management -Lovenox for DVT prophylaxis -Physical therapy per orthopedic recommendations Hyponatremia, etiology unclear- sodium better Acute renal injury, possibly secondary to dehydration- Resolved Avoid nephrotoxic agent History of CVA -Continue home medication Hypertension, stable -Continue home medical Lipidemia, stable Continue with home medication Anxiety and depression Continue with home medication Rash on right axilla on Nystatin cream TID. Cognitive deficits, possibly secondary to CVA which is decision making and subsequent placement. Patient refusing to go to SNF. Unable to go to [facility] due to not being able to meet her needs -appreciate psych input, pt. with poss. undiagnosed cognitive impairment most probably related with CVA highly suspected. Since the patient is unable to express the reason of her hospitalization, is unable to verbalize a clear understanding and appreciation of current medical problems, she has unrealistic expectations about her prognosis. Per psyche, she does not have decision- making capacity to participate in discharge planning at this moment. She can continue Lexapro 10 mg for depression. Agree 100% with the involvement of palliative care in this case to determining who will be the surrogated decision maker for the patient or health care by proxy. -Palliative care input appreciated. Palliative care spoke to pt's mother, she is proxy Patient has been cleared for discharge, placement has been an issue. Multiple facilities have been asked to evaluate patient and have denied her Boyfriend was going to take her home, however CM found out that he is homeless D/W patient. D/W fund manager Christiane working on discharge planning. Discussed Condition with: Patient Problem Qualifiers (1) Fracture of distal end of left tibia: (2) Fracture of distal fibula: (3) Depression: Qualified Code: F32.9 - Depression, unspecified depression type (4) HTN (hypertension): Qualified Code: I10 - Essential hypertension Jatinder Mata MD March 29, 2017 08:17
[2017-03-29] MEDS: amLODIPine BESYLATE 5 MG TAB PO SCH (09:00)
[2017-03-29] MEDS: SODIUM CHLORIDE 0.9% FLUSH 10 ML FLUSH IV FLUSH SCH ×2 (09:00→21:00)
[2017-03-29] MEDS: NICOTINE 21 MG/24 HR PATCH T-DERMAL SCH (10:08)
[2017-03-29] MEDS: ATENOLOL 50 MG TAB PO SCH ×3 (10:08→17:29)
[2017-03-29] MEDS: GABAPENTIN 100 MG CAP PO SCH ×3 (10:08→17:29)
[2017-03-29] MEDS: cloNIDine HCL 0.1 MG TAB PO SCH ×2 (10:09→23:16)
[2017-03-29] MEDS: ESCITALOPRAM OXALATE 10 MG TAB PO SCH (10:09)
[2017-03-29] MEDS: DOCUSATE SODIUM 50 MG/SENNA 8.6 MG TAB PO SCH ×2 (10:09→23:16)
[2017-03-29] MEDS: MULTIVITAMINS/MINERALS THERAPEUTIC TAB PO SCH (10:09)
[2017-03-29] MEDS: MAGNESIUM HYDROXIDE SUSP 30 ML CUP PO SCH (10:10)
[2017-03-29] MEDS: NYSTATIN 100,000 UNIT/GM CREAM 15 GM TOPICAL SCH ×3 (10:12→17:30)
[2017-03-29 20:00] VITALS: BP 145/88; PULSE 56; RESP 18; TEMP 97.4; O2SAT 99
[2017-03-29] MEDS: ATORVASTATIN 10 MG TAB PO SCH (23:16)
[2017-03-29] MEDS: diphenhydrAMINE HCL 25 MG CAP PO PRN (23:16)
[2017-03-30] MEDS: ALPRAZolam 1 MG TAB PO PRN ×3 (06:04→18:09)
[2017-03-30] MEDS: ACETAMINOPHEN/HYDROcodone 325 MG/5 MG TAB PO PRN ×3 (06:05→18:09)
[2017-03-30 08:00] VITALS: BP 135/91; PULSE 81; RESP 20; TEMP 96.6; O2SAT 100
[2017-03-30] MEDS: MAGNESIUM HYDROXIDE SUSP 30 ML CUP PO SCH (08:25)
[2017-03-30] MEDS: NICOTINE 21 MG/24 HR PATCH T-DERMAL SCH (08:25)
[2017-03-30] MEDS: amLODIPine BESYLATE 5 MG TAB PO SCH (08:25)
[2017-03-30] MEDS: DOCUSATE SODIUM 50 MG/SENNA 8.6 MG TAB PO SCH (08:25)
[2017-03-30] MEDS: GABAPENTIN 100 MG CAP PO SCH ×3 (08:25→18:09)
[2017-03-30] MEDS: ATENOLOL 50 MG TAB PO SCH ×3 (08:25→18:08)
[2017-03-30] MEDS: MULTIVITAMINS/MINERALS THERAPEUTIC TAB PO SCH (08:25)
[2017-03-30] MEDS: ESCITALOPRAM OXALATE 10 MG TAB PO SCH (08:26)
[2017-03-30] MEDS: NYSTATIN 100,000 UNIT/GM CREAM 15 GM TOPICAL SCH ×3 (08:26→18:00)
[2017-03-30] MEDS: cloNIDine HCL 0.1 MG TAB PO SCH (08:26)
[2017-03-30] MEDS: SODIUM CHLORIDE 0.9% FLUSH 10 ML FLUSH IV FLUSH SCH (08:26)
--- NOTE | 2017-03-30 13:52 | HHI.PYPN ---
Subjective Remarks Patient was seen for psychiatric reevaluation today, patient is found pleasantly chatting with sitter, she reports being in a good mood, she denies depressive symptoms, she denies anhedonia, she denies anxiety, she denies suicidal or homicidal ideation, she denies visual and auditory hallucinations. Patient explains that yesterday she was upset because the doctor told her that she was about to leave the hospital, minutes later told that she could not live the hospital. "I was mad, very upset, became agitated, I am not usually like that I hope you understand.". Patient explains that she wants to leave the hospital, her check from [facility] will be out 4 March and then she will be able to pay hotel for 3 weeks while her daughter comes out of penitentiary. Patient says that she is aware of how important is to continue taking her medications and follow medical recommendations, but she doesn't see the benefit of staying in the hospital. She says that if she has to stay to her today's more she will, but she really wants to leave the hospital. Patient is fully oriented 3, Mini- Mental state was performed, she is scored 28/30. Patient is able to verbalize a clear choice of leaving the hospital, with a good understanding of medical situations and understanding of consequences of leaving the hospital AMA and no following recommendations. As per nurses, patient has been calm, cooperative, with the exception of yesterday when she was agitated and hostile. Review of Systems Constitutional: DENIES: Diaphoretic episodes, Fatigue, Fever, Weight gain, Weight loss, Chills, Dizziness, Change in appetite, Night Sweats Eyes: DENIES: Blurred vision, Diplopia, Eye inflammation, Eye pain, Vision loss , Photosensitivity, Double Vision Ears, nose, mouth, throat: DENIES: Tinnitus, Hearing loss, Vertigo, Nasal discharge, Oral lesions, Throat pain, Hoarseness, Ear Pain, Running Nose, Epistaxis, Sinus Pain, Toothache, Odynophagia Gastrointestinal: DENIES: Abdominal pain, Black stools, Bloody stools, Constipation, Diarrhea, Nausea, Vomiting, Difficulty Swallowing, Anorexia Musculoskeletal: DENIES: Joint pain, Muscle aches, Stiffness, Joint Swelling, Back pain, Neck pain Integumentary: DENIES: Abnormal pigmentation, Pruritus, Rash, Nail changes, Breast masses, Breast skin changes, Nipple discharge Hematologic/lymphatic: DENIES: Bruising, Lymphadenopathy Immunologic/allergic: DENIES: Eczema, Urticaria Neurologic: DENIES: Abnormal gait, Headache, Localized weakness, Paresthesias, Seizures, Speech Problems, Tremor, Poor Balance Psychiatric: DENIES: Anxiety, Confusion, Mood changes, Depression, Hallucinations, Agitation, Suicidal Ideation, Homicidal Ideation, Delusions Objective Alert: Yes [place]: Person, Place, Date, Situation Mood: Calm Affect: Appropriate Memory Intact: Immediate, Recent, Remote Hallucinations: Other (she denies) Delusions: No Delusion Type: Other (none elicited) Suicidal: Ideation (she denies) Homicidal: Ideation (she denies) Insight/Judgment Good Vitals/IOs Vital Signs Date Time Temp Pulse Resp B/P Pulse Ox O2 Delivery O2 Flow Rate FiO2 03/30/17 08:00 96.6 81 20 135/91 100 Intake and Output 03/29/17 03/29/17 03/30/17 08:00 16:00 00:00 Intake Total 720 ml 240 ml Output Total 800 ml Balance -80 ml 240 ml Assessment & Plan Problem List: (1) Major neurocognitive disorder Assessment & Plan: At the moment of the evaluation the patient does not present any significant, concerning, and acute symptom apology of objective depression, anxiety, emmy or psychosis. She is fully oriented 3, Mini-Mental state is 28 of 30. Patient does not need any immediate psychiatric intervention. There is no psychiatric indication to discharge the patient back to the community. I feel that the patient at this moment has mental capacity to participate in her discharge plan. Continue Cipro 10 mg for depression. Extensive support, motivation psycho education provided. Can discontinue sitter. ICD Code: F03.90 Assessment & Plan Estimated LOS: days Justification for Cont. Inpt. Patient does not meet criteria for second admission at this moment. Jimy Arredondo MD March 30, 2017 13:52
--- NOTE | 2017-03-30 16:24 | HHI.PR ---
Subjective History of Present Illness Patient feel better no other issue. still waiting for placement. c/o rash on right axilla on Nystatin cream TID. D/W medical manager Christiane working on discharge planning. Review of Systems Constitutional Constitutional: Fatigue, Weakness Vitals/Results Intake & Output 03/29/17 03/29/17 03/30/17 15:00 23:00 07:00 Intake Total 240 ml 420 ml Balance 240 ml 420 ml Intake Oral 240 ml 420 ml # Voids 2 2 # Bowel Movements 0 0 Vital Signs Vital Signs Date Time Temp Pulse Resp B/P Pulse Ox O2 Delivery O2 Flow Rate FiO2 03/30/17 08:00 96.6 81 20 135/91 100 03/29/17 20:00 97.4 56 18 145/88 99 CBC/BMP: 03/26/17 0730 03/26/17 0730 Physical Exam General General Appearance: Well Nourished, No Acute Distress, Comfortable Eyes Eye Exam: Pupils Equal, Pupils Reactive, Sclera White, Extraocular Movement Intact Ears & Nose Ears & Nose Exam: Nasal Mucosa [place] Throat Throat Exam: Oral Mucosa [place] & Moist, Oral Pharynx Normal Neck Neck Exam: Neck Supple, Trachea Midline Pulmonary Resp Exam: Breath Sounds Equal, Poor Inspiratory Effort (low volumes, smoker) Cardiology CV Exam: Regular Gastrointestinal/Abdomen GI Exam: Soft, Non-Tender, Bowel Sounds Present, Non-Distended Musculoskeletal MS Exam: Joints Intact Integumentary Skin Exam: Warm, Dry Extremeties Extremities Exam: No Edema, Pedal Pulses Palpable, Trace Edema Neurologic Neuro Exam: Alert, Awake, Speech Clear, Dry Box Operator Equal VTE Prophylaxis VTE Prophylaxis Meds: Lovenox Assessment/Plan Problem List: (1) Fracture of distal end of left tibia (2) Edema of left foot (3) Edema of left ankle (4) Fracture of distal fibula (5) History of CVA (cerebrovascular accident) (6) Hyponatremia (7) Depression (8) HTN (hypertension) (9) Acute renal injury (10) Major neurocognitive disorder Assessment/Plan 67-year-old female who came to the emergency room complaining of left foot swelling and pain, questionable history of recent cellulitis. Denies any actual injury. Imaging studies completed, was noted with fracture of the distal tib and fib. Also positive for linear nondisplaced fracture to the lateral base of the distal phalanx of the first ray. Was evaluated by orthopedic surgeon S/P Left lower extremity open reduction and internal fixation of distal tibial pilon fracture with close reduction of distal fibula fracture 02/27/17 -Appreciate orthopedic input Continue with postoperative orthopedic care -Questionable history recent cellulitis, completed Ancef postoperatively -Pain management -Lovenox for DVT prophylaxis -Physical therapy per orthopedic recommendations Hyponatremia, etiology unclear- sodium better Acute renal injury, possibly secondary to dehydration- Resolved Avoid nephrotoxic agent History of CVA -Continue home medication Hypertension, stable -Continue home medical Lipidemia, stable Continue with home medication Anxiety and depression Continue with home medication Rash on right axilla on Nystatin cream TID. Cognitive deficits, possibly secondary to CVA which is decision making and subsequent placement. Patient refusing to go to SNF. Unable to go to [facility] due to not being able to meet her needs -appreciate psych input, pt. with poss. undiagnosed cognitive impairment most probably related with CVA highly suspected. Since the patient is unable to express the reason of her hospitalization, is unable to verbalize a clear understanding and appreciation of current medical problems, she has unrealistic expectations about her prognosis. Per psyche, she does not have decision- making capacity to participate in discharge planning at this moment. She can continue Lexapro 10 mg for depression. Agree 100% with the involvement of palliative care in this case to determining who will be the surrogated decision maker for the patient or health care by proxy. -Palliative care input appreciated. Palliative care spoke to pt's mother, she is proxy Patient has been cleared for discharge, placement has been an issue. Multiple facilities have been asked to evaluate patient and have denied her Boyfriend was going to take her home, however CM found out that he is homeless D/W patient. Patient got second evaluation by Psychiatrist on 03/29/17 per psychiatrist At the moment of the evaluation the patient does not present any significant, concerning, and acute symptom apology of objective depression, anxiety, emmy or psychosis. She is fully oriented 3, Mini-Mental state is 28 of 30. Patient does not need any immediate psychiatric intervention. There is no psychiatric indication to discharge the patient back to the community. I feel that the patient at this moment has mental capacity to participate in her discharge plan. Continue Cipro 10 mg for depression. Extensive support, motivation psycho education provided. Can discontinue sitter. ok to dc home today. f/u with PCP/ Psychiatrist / Orthopedic 1 week Discussed Condition with: Patient Problem Qualifiers (1) Fracture of distal end of left tibia: (2) Fracture of distal fibula: (3) Depression: Qualified Code: F32.9 - Depression, unspecified depression type (4) HTN (hypertension): Qualified Code: I10 - Essential hypertension Jatinder Mata MD March 30, 2017 16:24
--- NOTE | 2017-03-31 11:00 | MD ---
cc: GRACIELA VELOZ MD ADMISSION DATE: 02/26/2017 DISCHARGE DATE: 03/30/2017 ADDENDUM I am dictating an addendum for the discharge summary. Please see the discharge summary dictated on 03/05/2017 Mariaa Desi. The patient was transferred to [facility] and stayed on the fifth floor because of the patient's need to go to a [facility] care facility. The patient was not able to make any decisions per psychiatry. The patient stayed there and the patient wants to go home. Psych reconsulted and they evaluated the patient and found out that the patient is mentally capable of making decisions. The patient does not present any significant concerning or acute symptomatology for objective depression, anxiety, emmy or psychosis, past psychoanalysis she is fully oriented x3. A mini-mental status 28-30. The patient does not need any immediate psychiatric intervention. There is no psychiatric indication to discharge the patient back to the community. I feel that the patient at this moment has a mental capacity to anticipate discharge plan and is okay to discharge the patient home. The patient was discharged home. Graciela Veloz MD EA/DUSTIN /4:34 PM /10:48 AM
== END 2017-03-30 15:00 | disposition home or self-care (01) | DRG 493 ==
LOC: NETRI 13:10 → NEDA 17:33 → N06B 21:16 → PH5A 03-11 20:54
PROVIDERS: ADMIT Family Medicine; ATTEND Family Medicine
PROC: 0QSK04Z Reposition Left Fibula with Internal Fixation Device, Open Approach (ICD-10-PCS; 2017-02-27)
PROC: 0QSH04Z Reposition Left Tibia with Internal Fixation Device, Open Approach (ICD-10-PCS; principal; 2017-02-27 09:35)
DX: S82.872A Displaced pilon fracture of left tibia, initial encounter for closed fracture (principal); E87.1 Hypo-osmolality and hyponatremia; N17.9 Acute kidney failure, unspecified; F01.50 Vascular dementia, unspecified severity, without behavioral disturbance, psychotic disturbance, mood disturbance, and anxiety; L03.116 Cellulitis of left lower limb; I10 Essential (primary) hypertension; S82.832A Other fracture of upper and lower end of left fibula, initial encounter for closed fracture; S92.425A Nondisplaced fracture of distal phalanx of left great toe, initial encounter for closed fracture; R60.0 Localized edema; F17.210 Nicotine dependence, cigarettes, uncomplicated; E78.5 Hyperlipidemia, unspecified; F32.9 Major depressive disorder, single episode, unspecified; F41.9 Anxiety disorder, unspecified; I69.318 Other symptoms and signs involving cognitive functions following cerebral infarction; E86.0 Dehydration; R21 Rash and other nonspecific skin eruption; I69.322 Dysarthria following cerebral infarction; Z75.1 Person awaiting admission to adequate facility elsewhere; K21.9 Gastro-esophageal reflux disease without esophagitis; G89.29 Other chronic pain; W01.0XXA Fall on same level from slipping, tripping and stumbling without subsequent striking against object, initial encounter; Y92.192 Bathroom in other specified residential institution as the place of occurrence of the external cause; Z88.1 Allergy status to other antibiotic agents; Z88.0 Allergy status to penicillin
CPT/HCPCS: 71020; 73610; 73630; 73700; 76000; 76937; 80048; 80053; 83735; 85025; 85027; 85610; 85730; 87641; 93005; 94150; 99284; C1713; J0131; J0690; J1170; J1580; J1650; J2270; J2405; J3010; J3370; J7030; J7120; L2114